=== PATIENT | male | born 1950 | race African-American/Black ===

== ENCOUNTER 2019-08-04 19:58 | Inpatient (IN) | payer OTHER ==
[2019-08-04 22:07] VITALS: BMI 24.0
[2019-08-04] MEDS ORDERED: ACETAMINOPHEN 325 MG TABLET (FP) PO PRN ×2 (22:21)
[2019-08-04] MEDS ORDERED: ONDANSETRON *ODT* 4 MG TABLET SL PRN (22:21)
[2019-08-04] MEDS ORDERED: MAGNESIUM HYDROX 2400MG/30ML ORAL SUSPENSION 30 ML CUP PO PRN (22:21)
[2019-08-04] MEDS ORDERED: IBUPROFEN 400 MG TABLET (FP) PO PRN (22:21)
[2019-08-04] MEDS ORDERED: MENTHOL/PHENOL 1 EACH UD MM PRN (22:21)
[2019-08-04] MEDS ORDERED: DICYCLOMINE HCL 10 MG CAPSULE PO PRN (22:21)
[2019-08-04] MEDS ORDERED: BISMUTH SUBSALICYLATE 524 MG/30 ML UD PO PRN (22:21)
[2019-08-04] MEDS ORDERED: P-EPHED 60MG/TRIPROLIDI 2.5MG TABLET PO PRN (22:21)
[2019-08-04] MEDS ORDERED: MAGNESIUM CITRATE 300 ML BOTTLE PO PRN (22:21)
[2019-08-04] MEDS ORDERED: hydrOXYzine PAMOATE 25 MG CAPSULE (FP) PO PRN (22:21)
[2019-08-04] MEDS ORDERED: chlordiazePOXIDE HCL 10 MG CAPSULE PO PRN (22:21)
[2019-08-04] MEDS ORDERED: NICOTINE POLACRILEX 2 MG GUM BUC PRN (22:21)
[2019-08-04] MEDS ORDERED: METHADONE HCL 10 MG TABLET (FOR DETOX USE ONLY) PO ONE (22:21)
[2019-08-04] MEDS ORDERED: guaiFENesin 200 MG/10 ML 10 ML UNIT-DOSE CUPS PO PRN (22:21)
[2019-08-04] MEDS ORDERED: METHOCARBAMOL 500 MG TABLET PO PRN (22:21)
[2019-08-04] MEDS ORDERED: cloNIDine HCL 0.1 MG TABLET PO PRN (22:21)
[2019-08-04] MEDS ORDERED: NALOXONE HCL 0.4 MG/ML VIAL IM PRN (22:21)
[2019-08-04] MEDS ORDERED: MAG HYDROX/AL HYDROX/SIMETH 30 ML UNIT-DOSE CUP PO PRN (22:21)
--- NOTE | 2019-08-04 22:28 | HP ---
COWS - Scale Resting Pulse: 1= [place] 81-100 Sweatin= No chills or Flushing Restless Observation: 1= Difficult to Sit Still Pupil Size: 0= Normal to Room Light Bone or Joint Aches: 1= Mild Discomfort Runny Nose/ Eye Tearin= Nasal Congestion GI Upset > 30mins: 2= Nausea/Diarrhea Tremor Observation: 0= None Yawning Observation: 2= >3x During Session Anxiety or Irritability: 2=Irritable/Anxious Goose Flesh Skin: 0=Smooth Skin COWS Score: 10 CIWA Score Nausea/Vomitin-No Nausea/No Vomiting Muscle Tremors: None Anxiety: 4-Mod. Anxious/Guarded Agitation: 4-Moderately Restless Paroxysmal Sweats: No Perspiration Orientation: 1-Uncertain about Date Tacttile Disturbances: 0-None Auditory Disturbances: 0-None Visual Disturbances: 0-None Headache: 0-None Present CIWA-Ar Total Score: 9 - Admission Criteria [facility]ASAS Guidelines: Admission for Medically Managed Detox: Requires at least one of the followin. CIWA greater than 12 2. Seizures within the past 24 hours 3. Delirium tremens within the past 24 hours 4. Hallucinations within the past 24 hours 5. Acute intervention needed for co occurring medical disorder 6. Acute intervention needed for co occurring psychiatric disorder 7. Severe withdrawal that cannot be handled at a lower level of care (continued vomiting, continued diarrhea, abnormal vital signs) requiring intravenous medication and/or fluids 8. Admission [facility] Chief Complaint: c/o withdrawal sx's Allergies/Adverse Reactions: Allergies Allergy/AdvReac Type Severity Reaction Status Date / Time No Known Allergies Allergy Verified 08/04/19 22:00 History of Present Illness: 68 y.o. male with alcoholism and heroin addiction here for detox. client was referred by [facility] after presenting there for help. he presents with c /o worsening withdrawal sx's. + cows/+ ciwa. he reports daily use of heroin and alcohol. + [employer], hx/o ivdu. last use of both substances this morning due to withdrawal sx's. denies any significant period of clean time in the past year. hx/o blackouts most recent 11/2018, drug overdose last episode 6 months. intereested in rehab after detox. lives alone, retired, denies legals Exam Limitations: Other (forgetful) - Ebola screening Have you traveled outside of the country in the last 21 days: No (N) Have you had contact with anyone from an Ebola affected area: No Do you have a fever: No - Review of Systems Constitutional: Chills, Night Sweats, Changes in sleep EENT: reports: Dental Problems (dentures and glasses) Respiratory: reports: Shortness of Breath Cardiac: reports: No Symptoms Reported, Edema (ble) GI: reports: Diarrhea, Nausea, Poor Fluid Intake, Abdominal cramping : reports: No Symptoms Reported Musculoskeletal: reports: Back Pain (chronic), Joint Pain Integumentary: reports: No Symptoms Reported Neuro: reports: Numbness (neuropathy), Seizure Endocrine: reports: Other (hx/o dm) Hematology: reports: No Symptoms Reported Psychiatric: reports: Anxious, Depressed (denies si) Other Systems: Reviewed and Negative Patient History - Patient Medical History Hx Anemia: No Hx Asthma: No Hx Chronic Obstructive Pulmonary Disease (COPD): No Hx Cancer: No Hx Cardiac Disorders: No Hx Congestive Heart Failure: No Hx Hypertension: Yes Hx Hypercholesterolemia: Yes Hx Pacemaker: No HX Cerebrovascular Accident: No Hx Seizures: No Hx Dementia: No Hx Diabetes: Yes Hx Gastrointestinal Disorders: No Hx Liver Disease: Yes (HCV TREATED) Hx Genitourinary Disorders: No Hx Sexually Transmitted Disorders: No Hx Renal Disease (ESRD): No Hx Thyroid Disease: No Hx Human Immunodeficiency Virus (HIV): No Hx Hepatitis C: No Hx Depression: No Hx Suicide Attempt: No Hx Bipolar Disorder: No Hx Schizophrenia: No - Patient Surgical History Past Surgical History: No - PPD History Previous Implant?: Yes Documented Results: Positive w/o proof Implanted On Prior [facility] Admission?: No PPD to be Administered?: No - Smoking Cessation Smoking history: Current every day smoker Have you smoked in the past 12 months: Yes Aproximately how many cigarettes per day: 15 Cigars Per Day: 0 Hx Chewing Tobacco Use: No Initiated information on smoking cessation: Yes 'Breaking Loose' booklet given: 08/04/19 - Substance & Tx. History Hx Alcohol Use: Yes Hx Substance Use: Yes Substance Use Type: Alcohol, Heroin Hx [place] Use [place]) - Substances abused Alcohol Substance route: Oral Frequency: Daily Amount used: 2/6 packs Age of first use: 19 Date of last use: 08/04/19 Heroin Substance route: Inhalation Frequency: Daily Amount used: 5 bags Age of first use: 19 Date of last use: 08/03/19 Admission Physical Exam [facility] - Vital Signs Vital Signs: Vital Signs - 24 hr 08/04/19 21:49 Temperature 97.9 F Pulse Rate 91 H Respiratory 17 Rate Blood Pressure 102/52 L - Physical General Appearance: Yes: Moderate Distress, Tremorous, Sweating (moist skin), Anxious HEENTM: Yes: EOMI, Normocephalic, Normal Voice, SAM, Pharynx Normal, Other ( upper dentures) Respiratory: Yes: Chest Non-Tender, Lungs Clear, Normal Breath Sounds, No Respiratory Distress, No Accessory Muscle Use Neck: Yes: No masses,lesions,Nodules, Supple, Trachea in good position Breast: Yes: Breast Exam Deferred Cardiology: Yes: Regular Rhythm, Regular Rate, S1, S2 Abdominal: Yes: Non Tender, Soft, Increased Bowel Sounds Genitourinary: Yes: Within Normal Limits (no c/o) Back: Yes: Normal Inspection Musculoskeletal: Yes: full range of Motion, Gait Steady Neurological: Yes: Alert, Motor Strength 5/5, Depressed Affect, Other (forgetful ) Integumentary: Yes: Cold, Clammy Lymphatic: Yes: Within Normal Limits - Diagnostic (1) Alcohol dependence with uncomplicated withdrawal Current Visit: Yes Status: Acute (2) Opioid dependence with withdrawal Current Visit: Yes Status: Acute (3) HTN (hypertension) Current Visit: Yes Status: Chronic Qualifiers: Hypertension type: essential hypertension Qualified Code(s): I10 - Essential (primary) hypertension (4) HLD (hyperlipidemia) Current Visit: Yes Status: Chronic Qualifiers: Hyperlipidemia type: unspecified Qualified Code(s): E78.5 - Hyperlipidemia , unspecified (5) Diabetes Current Visit: Yes Status: Chronic Qualifiers: Diabetes mellitus type: type 2 (6) History of hepatitis C Current Visit: Yes Status: Chronic (7) History of positive PPD Current Visit: Yes Status: Chronic Cleared for Admission [facility] - Detox or Rehab [facility] Level of Care: Medically Managed Detox Regimen/Protocol: Methadone/Librium Claeared for Rehab Admission: No Inpatient Rehab Admission - Rehab Decision to Admit Inpatient rehab admission?: No
[2019-08-04] MEDS: chlordiazePOXIDE HCL 25 MG CAPSULE PO SCH (23:55)
[2019-08-05] MEDS: chlordiazePOXIDE HCL 25 MG CAPSULE PO SCH ×3 (05:29→22:39)
[2019-08-05] MEDS: INSULIN (LEVEMIR) 100 UNITS/ML UNITS SQ SCH (07:31)
[2019-08-05] MEDS: metFORMIN HCL 500 MG TABLET (FP) PO SCH ×2 (07:31→16:55)
[2019-08-05] MEDS: LIRAGLUTIDE 0.6 MG/0.1 ML PEN.INJCTR SQ SCH (08:06)
[2019-08-05] MEDS ORDERED: METHADONE HCL 10 MG TABLET (FOR DETOX USE ONLY) ONE (09:40)
[2019-08-05] MEDS ORDERED: METHADONE HCL 5 MG TABLET (FOR DETOX USE ONLY) ONE (09:42)
[2019-08-05] MEDS ORDERED: METHADONE (DETOX) 20 MG, METHADONE (DETOX) 5 MG PO ONE (10:00)
[2019-08-05] MEDS: PRENATAL VITAMINS W/ FOLIC ACID TABLET (FP) PO SCH (10:28)
[2019-08-05] MEDS: ASPIRIN COATED 81 MG TABLET.EC PO SCH (10:28)
[2019-08-05] MEDS: NICOTINE 21 MG/24 HOURS TOPICAL PATCH TD SCH (10:28)
--- NOTE | 2019-08-05 10:52 | PN ---
S CIWA - CIWA Score Nausea/Vomitin-No Nausea/No Vomiting Muscle Tremors: None Anxiety: 3 Agitation: 2 Paroxysmal Sweats: 3 Orientation: 0-Oriented Tacttile Disturbances: 0-None Auditory Disturbances: 0-None Visual Disturbances: 0-None Headache: 0-None Present CIWA-Ar Total Score: 8 S COWS - Scale Resting Pulse: 1= [place] 81-100 Sweatin= Beads of Sweat on Face Restless Observation: 1= Difficult to Sit Still Pupil Size: 0= Normal to Room Light Bone or Joint Aches: 1= Mild Discomfort Runny Nose/ Eye Tearin= None GI Upset > 30mins: 0= None Tremor Observation of Outstretched Hands: 0= None Yawning Observation: 1= 1-2x During Session Anxiety or Irritability: 2=Irritable/Anxious Goose Flesh Skin: 0=Smooth Skin COWS Score: 9 S Progress Note (SOAP) Subjective: c/o anxiety, muscle aches, irritability, and sweats. Objective: 08/05/19 10:53 Vital Signs 08/05/19 08/05/19 08/05/19 03:48 06:00 09:35 Temperature 97.9 F 97.9 F Pulse Rate 96 H 76 Respiratory 16 18 18 Rate Blood Pressure 134/74 136/75 Labs noted. Assessment: 08/05/19 10:53 AOX3, in no acute distress. Full ROM, ambulating in the unit. Withdrawal symptoms. Plan: continue detox.
[2019-08-05 11:17] LABS: PH,URINE 5.5 (5.0-8.0); URINE APPEARANCE CLEAR; URINE BILIRUBIN NEGATIVE (NEGATIVE); URINE COLOR YELLOW; URINE GLUCOSE (UA) 3+ (NEGATIVE); URINE KETONE NEGATIVE (NEGATIVE); URINE LEUK ESTERASE NEGATIVE (NEGATIVE); URINE NITRITE NEGATIVE (NEGATIVE); URINE PROTEIN NEGATIVE (NEGATIVE)
[2019-08-05 11:22] LABS: HEMATOCRIT 38.9 % (35.4-49); HEMOGLOBIN 12.7 GM/dL (11.7-16.9); MCH 26.4 pg (25.7-33.7); MCHC 32.6 g/dl (32.0-35.9); MEAN CELL VOLUME 80.9 fl (80-96); MEAN PLT VOLUME 8.8 fl (7.5-11.1); PLATELET COUNT 193 K/MM3 (134-434); RBC 4.81 M/mm3 (4.00-5.60); RDW 15.2 % (11.9-15.9); WHITE BLOOD COUNT 5.8 K/mm3 (4.0-10.0)
[2019-08-05 11:26] LABS: ALBUMIN 4.2 g/dl (3.4-5.0); BILIRUBIN,TOTAL 0.5 mg/dL (0.2-1); BLOOD UREA NITROGEN 18.5 mg/dL (7-18); CALCIUM 9.6 mg/dL (8.5-10.1); TOT PROT 7.1 g/dl (6.4-8.2)
--- NOTE | 2019-08-05 19:24 | CONSULT ---
[facility] Psychiatric Consult - Data Date of interview: 08/05/19 Admission source: [facility] Identifying data: First admission to [facility] for this 68 y/o AA male, a [employer] , self-referred for detoxification (heroin, alcohol). Seen on . Patient is single, father of two, domiciled, unemployed and supported on SSI benefits. Substance Abuse History: Discussed with patient. Details in current [facility] report as follows : Smoking history: Current every day smoker. Have you smoked in the past 12 months: Yes. Aproximately how many cigarettes per day: 15. Cigars Per Day: 0. Hx Chewing Tobacco Use: No. Initiated information on smoking cessation : Yes. 'Breaking Loose' booklet given: 08/04/19. - Substance & Tx. History. Hx Alcohol Use: Yes. Hx Substance Use: Yes. Substance Use Type: Alcohol, Heroin. Hx Substance Use Treatment: [place] ([place] - Substances abused. Alcohol. Substance route: Oral. Frequency: Daily. Amount used: 2/6 packs. Age of first use: 19. Date of last use: 08/04/19. Heroin. Substance route : Inhalation. Frequency: Daily. Amount used: 5 bags. Age of first use: 19. Date of last use: 08/03/19 Medical History: Hepatitis C, diabetes mellitus and hypertension. Psychiatric History: No reported history of psychiatric hospitalizations. Patient denies having a mental illness. " Insomnia is my issue." Mr Lenz is prescribed trazodone 100 mg/hs at the [facility] in [facility]. Patient denies history of suicide attempts. Physical/Sexual Abuse/Trauma History: No history. Additional Comment: No toxicology for review. Mental Status Exam - Mental Status Exam Alert and Oriented to: Time, Place, Person Cognitive Function: Good Patient Appearance: Well Groomed Mood: Hopeful, Euthymic Affect: Appropriate, Normal Range Patient Behavior: Appropriate, Cooperative Speech Pattern: Clear, Appropriate Voice Loudness: Normal Thought Process: Intact, Goal Oriented Thought Disorder: Not Present Hallucinations: Denies Suicidal Ideation: Denies Homicidal Ideation: Denies Insight/Judgement: Fair Sleep: Poorly, Difficulty falling asleep Appetite: Good Muscle strength/Tone: Normal Gait/Station: Normal Psychiatric Findings - Problem List ([place] 1, 2,3) (1) Alcohol dependence with uncomplicated withdrawal Current Visit: Yes Status: Acute (2) Opioid dependence with withdrawal Current Visit: Yes Status: Acute (3) Insomnia Current Visit: Yes Status: Chronic - Initial Treatment Plan Initial Treatment Plan: Psychoeducation. Detoxification. Sleep hygiene. Trazodone 50 mg po hs. Ordered. Patient is made aware of the risk of priapism. Gave verbal consent to MD. Christine.
[2019-08-05] MEDS: traZODone HCL 50 MG TABLET (FP) PO SCH (22:38)
[2019-08-05] MEDS: THIAMINE HCL 100 MG TABLET (FP) PO SCH (22:38)
[2019-08-06] MEDS: chlordiazePOXIDE 5 MG CAPSULE PO SCH ×3 (05:44→21:21)
[2019-08-06] MEDS: metFORMIN HCL 500 MG TABLET (FP) PO SCH ×2 (06:35→16:48)
[2019-08-06] MEDS: INSULIN (LEVEMIR) 100 UNITS/ML UNITS SQ SCH (07:06)
[2019-08-06] MEDS: LIRAGLUTIDE 0.6 MG/0.1 ML PEN.INJCTR SQ SCH (07:57)
[2019-08-06] MEDS ORDERED: METHADONE HCL 10 MG TABLET (FOR DETOX USE ONLY) PO ONE (10:00)
[2019-08-06] MEDS: NICOTINE 21 MG/24 HOURS TOPICAL PATCH TD SCH (10:07)
[2019-08-06] MEDS: ASPIRIN COATED 81 MG TABLET.EC PO SCH (10:08)
[2019-08-06] MEDS: PRENATAL VITAMINS W/ FOLIC ACID TABLET (FP) PO SCH (10:08)
--- NOTE | 2019-08-06 14:22 | PN ---
[facility] CIWA - CIWA Score Nausea/Vomitin-No Nausea/No Vomiting Muscle Tremors: 3 Anxiety: 2 Agitation: 2 Paroxysmal Sweats: 2 Orientation: 0-Oriented Tacttile Disturbances: 0-None Auditory Disturbances: 0-None Visual Disturbances: 0-None Headache: 0-None Present CIWA-Ar Total Score: 9 [facility] COWS - Scale Resting Pulse: 0= [place] 80 or Below Sweatin= Chills/Flushing Restless Observation: 1= Difficult to Sit Still Pupil Size: 0= Normal to Room Light Bone or Joint Aches: 1= Mild Discomfort Runny Nose/ Eye Tearin= Runny Nose/Eyes GI Upset > 30mins: 2= Nausea/Diarrhea Tremor Observation of Outstretched Hands: 2= Slight Tremor Visible Yawning Observation: 0= None Anxiety or Irritability: 1=Feels Anxious/Irritable Goose Flesh Skin: 0=Smooth Skin COWS Score: 10 [facility] Progress Note (SOAP) Subjective: Interrupted sleep, medication otherwise working well Objective: 08/06/19 14:15 Last Vital Signs Temp Pulse Resp BP Pulse Ox 98.2 F 75 18 145/68 08/06/19 13:16 08/06/19 13:16 08/06/19 13:16 08/06/19 13:16 Elevated b/p 145/68 (denies htn, on Clonidine prn) Laboratory Tests 08/04/19 08/05/19 08/05/19 23:57 05:27 08:00 WBC 5.8 RBC 4.81 Hgb 12.7 Hct 38.9 MCV 80.9 MCH 26.4 MCHC 32.6 RDW 15.2 Plt Count 193 MPV 8.8 Sodium Potassium Chloride Carbon Dioxide Anion Gap BUN Creatinine Est GFR (CKD-EPI)AfAm Est GFR (CKD-EPI)NonAf POC Glucometer 187 119 Random Glucose Calcium Total Bilirubin AST ALT Alkaline Phosphatase Total Protein Albumin Urine Color Urine Appearance Urine pH Ur Specific Campbell Urine Protein Urine Glucose (UA) Urine Ketones Urine Blood Urine Nitrite Urine Bilirubin Urine Urobilinogen Ur Leukocyte Esterase RPR Titer 08/05/19 08/05/19 08/05/19 08:00 08:00 08:45 WBC RBC Hgb Hct MCV MCH MCHC RDW Plt Count MPV Sodium 139 Potassium 4.0 Chloride 104 Carbon Dioxide 29 Anion Gap 6 L BUN 18.5 H Creatinine 1.0 Est GFR (CKD-EPI)AfAm 90.50 Est GFR (CKD-EPI)NonAf 78.08 POC Glucometer Random Glucose 142 H Calcium 9.6 Total Bilirubin 0.5 AST 42 H ALT 49 Alkaline Phosphatase 62 Total Protein 7.1 Albumin 4.2 Urine Color Yellow Urine Appearance Clear Urine pH 5.5 Ur Specific Campbell 1.032 Urine Protein Negative Urine Glucose (UA) 3+ H Urine Ketones Negative Urine Blood Negative Urine Nitrite Negative Urine Bilirubin Negative Urine Urobilinogen 1.0 Ur Leukocyte Esterase Negative RPR Titer Nonreactive 08/05/19 08/06/19 16:31 05:44 WBC RBC Hgb Hct MCV MCH MCHC RDW Plt Count MPV Sodium Potassium Chloride Carbon Dioxide Anion Gap BUN Creatinine Est GFR (CKD-EPI)AfAm Est GFR (CKD-EPI)NonAf POC Glucometer 130 105 Random Glucose Calcium Total Bilirubin AST ALT Alkaline Phosphatase Total Protein Albumin Urine Color Urine Appearance Urine pH Ur Specific Campbell Urine Protein Urine Glucose (UA) Urine Ketones Urine Blood Urine Nitrite Urine Bilirubin Urine Urobilinogen Ur Leukocyte Esterase RPR Titer Labs reviewed: elevated glucose level and glycosuria due to DM Assessment: 08/06/19 14:18 Withdrawal sxs Noted with elevated b/p and hyperglycemia and glycosuria secondary to DMT2 Plan: Continue detox Encouraged PO water intake Elevated b/p: has htn, start lisinopril 5mg PO daily, can continue clonidine prn if b/p > 140/90 Hyperglycemia and glycosuria secondary to DMT2: continue antidiabetic regimen
[2019-08-06] MEDS: traZODone HCL 50 MG TABLET (FP) PO SCH (22:21)
[2019-08-06] MEDS: THIAMINE HCL 100 MG TABLET (FP) PO SCH (22:21)
[2019-08-06] MEDS: MELATONIN 5 MG TABLETS PO PRN (22:23)
[2019-08-07] MEDS ORDERED: chlordiazePOXIDE HCL 10 MG CAPSULE PO PRN
[2019-08-07] MEDS: chlordiazePOXIDE HCL 10 MG CAPSULE PO SCH ×3 (05:28→21:23)
[2019-08-07] MEDS: metFORMIN HCL 500 MG TABLET (FP) PO SCH ×2 (06:27→17:23)
[2019-08-07] MEDS: INSULIN (LEVEMIR) 100 UNITS/ML UNITS SQ SCH (06:29)
[2019-08-07] MEDS: LIRAGLUTIDE 0.6 MG/0.1 ML PEN.INJCTR SQ SCH (06:39)
[2019-08-07] MEDS ORDERED: METHADONE HCL 10 MG TABLET (FOR DETOX USE ONLY) ONE (09:37)
[2019-08-07] MEDS ORDERED: METHADONE HCL 5 MG TABLET (FOR DETOX USE ONLY) ONE (09:37)
[2019-08-07] MEDS ORDERED: METHADONE (DETOX) 10 MG, METHADONE (DETOX) 5 MG PO ONE (10:00)
[2019-08-07] MEDS: LISINOPRIL 5 MG TABLET (FP) PO SCH (10:38)
[2019-08-07] MEDS: PRENATAL VITAMINS W/ FOLIC ACID TABLET (FP) PO SCH (10:38)
[2019-08-07] MEDS: ASPIRIN COATED 81 MG TABLET.EC PO SCH (10:38)
[2019-08-07] MEDS: NICOTINE 21 MG/24 HOURS TOPICAL PATCH TD SCH (10:39)
--- NOTE | 2019-08-07 11:35 | PN ---
[facility] COWS - Scale Resting Pulse: 1= [place] 81-100 Sweatin= No chills or Flushing Restless Observation: 1= Difficult to Sit Still Pupil Size: 1= Pupils >than Normal Bone or Joint Aches: 1= Mild Discomfort Runny Nose/ Eye Tearin= Nasal Congestion GI Upset > 30mins: 1= Stomach Cramp Tremor Observation of Outstretched Hands: 1= Tremor Vanduser, Not Seen Yawning Observation: 1= 1-2x During Session Anxiety or Irritability: 2=Irritable/Anxious Goose Flesh Skin: 0=Smooth Skin COWS Score: 10 [facility] Progress Note (SOAP) Subjective: alert,irritable,anxious,interrupted sleep,pain n the body and back Objective: 08/07/19 11:35 Vital Signs Temperature 99.0 F 08/07/19 10:53 Pulse Rate 88 08/07/19 10:53 Respiratory Rate 18 08/07/19 10:53 Blood Pressure 103/68 08/07/19 10:53 O2 Sat by Pulse Oximetry (%) 08/07/19 11:35 glucose 125 Assessment: 08/07/19 11:36 withdrawal symptom Plan: continue detox methadone regimen
[2019-08-07] MEDS: THIAMINE HCL 100 MG TABLET (FP) PO SCH (21:22)
[2019-08-07] MEDS: traZODone HCL 50 MG TABLET (FP) PO SCH (21:22)
[2019-08-07] MEDS: MELATONIN 5 MG TABLETS PO PRN (21:49)
[2019-08-08] MEDS ORDERED: chlordiazePOXIDE HCL 10 MG CAPSULE PO ONE (05:00)
[2019-08-08] MEDS: metFORMIN HCL 500 MG TABLET (FP) PO SCH ×2 (06:21→16:56)
[2019-08-08] MEDS: INSULIN (LEVEMIR) 100 UNITS/ML UNITS SQ SCH (07:35)
[2019-08-08] MEDS: LIRAGLUTIDE 0.6 MG/0.1 ML PEN.INJCTR SQ SCH (07:37)
[2019-08-08] MEDS ORDERED: METHADONE HCL 10 MG TABLET (FOR DETOX USE ONLY) PO ONE (10:00)
[2019-08-08] MEDS: ASPIRIN COATED 81 MG TABLET.EC PO SCH (10:30)
[2019-08-08] MEDS: PRENATAL VITAMINS W/ FOLIC ACID TABLET (FP) PO SCH (10:30)
[2019-08-08] MEDS: LISINOPRIL 5 MG TABLET (FP) PO SCH (10:31)
[2019-08-08] MEDS: NICOTINE 21 MG/24 HOURS TOPICAL PATCH TD SCH (10:32)
--- NOTE | 2019-08-08 15:53 | PN ---
[facility] CIWA - CIWA Score Nausea/Vomitin-No Nausea/No Vomiting Muscle Tremors: None Anxiety: 0-No Anxiety, at Ease Agitation: 1-Slight > Activity Paroxysmal Sweats: No Perspiration Orientation: 0-Oriented Tacttile Disturbances: 0-None Auditory Disturbances: 0-None Visual Disturbances: 0-None Headache: 0-None Present CIWA-Ar Total Score: 1 S COWS - Scale Resting Pulse: 0= [place] 80 or Below Sweatin= No chills or Flushing Restless Observation: 1= Difficult to Sit Still Pupil Size: 0= Normal to Room Light Bone or Joint Aches: 0= None Runny Nose/ Eye Tearin= None GI Upset > 30mins: 0= None Tremor Observation of Outstretched Hands: 0= None Yawning Observation: 1= 1-2x During Session Anxiety or Irritability: 0= None Goose Flesh Skin: 0=Smooth Skin COWS Score: 2 S Progress Note (SOAP) Subjective: Patient denies current Withdrawal / Detox symptoms and reports that he feels well overall at this time. Objective: PATIENT A & O X 3. IN NO ACUTE DISTRESS. 08/08/19 15:51 Vital Signs Temperature 98.8 F 08/08/19 13:34 Pulse Rate 80 08/08/19 13:34 Respiratory Rate 18 08/08/19 13:34 Blood Pressure 131/70 08/08/19 13:34 O2 Sat by Pulse Oximetry (%) Laboratory Tests 08/04/19 08/05/19 08/05/19 23:57 05:27 08:00 WBC 5.8 RBC 4.81 Hgb 12.7 Hct 38.9 MCV 80.9 MCH 26.4 MCHC 32.6 RDW 15.2 Plt Count 193 MPV 8.8 Sodium Potassium Chloride Carbon Dioxide Anion Gap BUN Creatinine Est GFR (CKD-EPI)AfAm Est GFR (CKD-EPI)NonAf POC Glucometer 187 119 Random Glucose Calcium Total Bilirubin AST ALT Alkaline Phosphatase Total Protein Albumin Urine Color Urine Appearance Urine pH Ur Specific [place] Urine Protein Urine Glucose (UA) Urine Ketones Urine Blood Urine Nitrite Urine Bilirubin Urine Urobilinogen Ur Leukocyte Esterase RPR Titer 08/05/19 08/05/19 08/05/19 08:00 08:00 08:45 WBC RBC Hgb Hct MCV MCH MCHC RDW Plt Count MPV Sodium 139 Potassium 4.0 Chloride 104 Carbon Dioxide 29 Anion Gap 6 L BUN 18.5 H Creatinine 1.0 Est GFR (CKD-EPI)AfAm 90.50 Est GFR (CKD-EPI)NonAf 78.08 POC Glucometer Random Glucose 142 H Calcium 9.6 Total Bilirubin 0.5 AST 42 H ALT 49 Alkaline Phosphatase 62 Total Protein 7.1 Albumin 4.2 Urine Color Yellow Urine Appearance Clear Urine pH 5.5 Ur Specific [place] 1.032 Urine Protein Negative Urine Glucose (UA) 3+ H Urine Ketones Negative Urine Blood Negative Urine Nitrite Negative Urine Bilirubin Negative Urine Urobilinogen 1.0 Ur Leukocyte Esterase Negative RPR Titer Nonreactive 08/05/19 08/06/19 08/07/19 16:31 05:44 05:27 WBC RBC Hgb Hct MCV MCH MCHC RDW Plt Count MPV Sodium Potassium Chloride Carbon Dioxide Anion Gap BUN Creatinine Est GFR (CKD-EPI)AfAm Est GFR (CKD-EPI)NonAf POC Glucometer 130 105 125 Random Glucose Calcium Total Bilirubin AST ALT Alkaline Phosphatase Total Protein Albumin Urine Color Urine Appearance Urine pH Ur Specific [place] Urine Protein Urine Glucose (UA) Urine Ketones Urine Blood Urine Nitrite Urine Bilirubin Urine Urobilinogen Ur Leukocyte Esterase RPR Titer 08/07/19 08/08/19 16:51 05:30 WBC RBC Hgb Hct MCV MCH MCHC RDW Plt Count MPV Sodium Potassium Chloride Carbon Dioxide Anion Gap BUN Creatinine Est GFR (CKD-EPI)AfAm Est GFR (CKD-EPI)NonAf POC Glucometer 154 129 Random Glucose Calcium Total Bilirubin AST ALT Alkaline Phosphatase Total Protein Albumin Urine Color Urine Appearance Urine pH Ur Specific [place] Urine Protein Urine Glucose (UA) Urine Ketones Urine Blood Urine Nitrite Urine Bilirubin Urine Urobilinogen Ur Leukocyte Esterase RPR Titer LABS NOTED. Assessment: 08/08/19 15:51 WITHDRAWAL SYMPTOMS. Plan: CONTINUE DETOX. INCREASE DAILY PO WATER INTAKE. PATIENT SCHEDULED FOR D/C FROM DETOX UNIT TOMORROW. CXR FOR HISTORY OF (POSITIVE PPD) ORDERED BUT NOT DONE NOT DONE WHILE PATIENT WAS ADMITTED FOR DETOX. PATIENT REPORTS THAT HE BELIEVES THAT HE HAD A CXR AT THE [facility] WITHIN THE LAST 1-2 YEARS. PATIENT ADVISED TO FOLLOW-UP WITH PILE OPERATOR (AT [facility]) WHEN POSSIBLE AFTER DISCHARGE FROM DETOX UNIT TO HAVE CXR DONE. PATIENT VERBALIZED UNDERSTANDING OF RECOMMENDATION.
[2019-08-08] MEDS: MELATONIN 5 MG TABLETS PO PRN (21:04)
[2019-08-08] MEDS: THIAMINE HCL 100 MG TABLET (FP) PO SCH (21:04)
[2019-08-08] MEDS: traZODone HCL 50 MG TABLET (FP) PO SCH (21:04)
[2019-08-09] MEDS ORDERED: METHADONE HCL 5 MG TABLET (FOR DETOX USE ONLY) PO ONE (06:00)
[2019-08-09] MEDS: metFORMIN HCL 500 MG TABLET (FP) PO SCH (07:35)
[2019-08-09 08:49] VITALS: BP 136/62; PULSE 71; TEMP 98
--- NOTE | 2019-08-09 09:23 | DS ---
[facility] Detox Discharge Summary Admission Date: 08/04/19 Discharge Date: 08/09/19 - History Present History: Alcohol Dependence, Opioid Dependence - Physical Exam Results Vital Signs: Vital Signs Temperature 98.0 F 08/09/19 08:49 Pulse Rate 71 08/09/19 08:49 Respiratory Rate 18 08/09/19 08:49 Blood Pressure 136/62 08/09/19 08:49 O2 Sat by Pulse Oximetry (%) Pertinent Admission Physical Exam Findings: pt was advised to stay until 2pm however, pt refused to stay for chest x- ray...pt has copy of lab results and encouraged to see his PCP for a chest x- ray. pt agreed. - Treatment Hospital Course: Detox Protocol Followed, Detoxed Safely, Responded well, Discharged Condition Good, Rehab Referral Accepted Patient has Accepted a Rehab Referral to: pt declined rehab; referral provided - Medication Discharge Medications: Ambulatory Orders Aspirin [Ecotrin] 81 mg PO DAILY 08/04/19 Insulin Glargine,Hum.rec.anlog [Lantus] 24 unit SQ DAILY 08/04/19 Liraglutide [Victoza -] 1.8 mg SQ DAILY@0700 08/04/19 Metformin HCl [Glucophage] 1,000 mg PO BID 08/04/19 - Diagnosis (1) Alcohol dependence with uncomplicated withdrawal Current Visit: Yes Status: Chronic (2) Opioid dependence with withdrawal Current Visit: Yes Status: Chronic (3) Diabetes Current Visit: Yes Status: Chronic Qualifiers: Diabetes mellitus type: type 2 (4) HLD (hyperlipidemia) Current Visit: Yes Status: Chronic Qualifiers: Hyperlipidemia type: unspecified Qualified Code(s): E78.5 - Hyperlipidemia , unspecified (5) HTN (hypertension) Current Visit: Yes Status: Chronic Qualifiers: Hypertension type: essential hypertension Qualified Code(s): I10 - Essential (primary) hypertension (6) History of hepatitis C Current Visit: Yes Status: Chronic (7) History of positive PPD Current Visit: Yes Status: Chronic (8) Insomnia Current Visit: Yes Status: Chronic - AMA Did Patient Leave Against Medical Advice: No
== END 2019-08-09 09:05 | disposition home or self-care (01) | DRG 897 ==
LOC: YASAS 19:58 → Y6N 23:23
PROVIDERS: ADMIT Surgery; ATTEND Surgery
PROC: HZ2ZZZZ Detoxification Services for Substance Abuse Treatment (ICD-10-PCS; principal; 2019-08-04)
DX: F11.23 Opioid dependence with withdrawal (principal); F10.230 Alcohol dependence with withdrawal, uncomplicated; F17.210 Nicotine dependence, cigarettes, uncomplicated; I10 Essential (primary) hypertension; E11.65 Type 2 diabetes mellitus with hyperglycemia; E78.5 Hyperlipidemia, unspecified; R76.11 Nonspecific reaction to tuberculin skin test without active tuberculosis; G47.00 Insomnia, unspecified; R81 Glycosuria; Z86.19 Personal history of other infectious and parasitic diseases
CPT/HCPCS: 36415; 80053; 81003; 82962; 85027; 86593

== ENCOUNTER 2019-09-25 08:16 | Inpatient (IN) | payer OTHER ==
[2019-09-25 09:17] VITALS: BMI 24.4
--- NOTE | 2019-09-25 09:43 | HP ---
COWS - Scale Resting Pulse: 1= [place] 81-100 Sweatin= Chills/Flushing Restless Observation: 1= Difficult to Sit Still Pupil Size: 1= Pupils >than Normal Bone or Joint Aches: 2= Severe Diffuse Aches Runny Nose/ Eye Tearin= Nasal Congestion GI Upset > 30mins: 3= Vomiting/Diarrhea Tremor Observation: 1= Tremor [place], Not Seen Yawning Observation: 1= 1-2x During Session Anxiety or Irritability: 1=Feels Anxious/Irritable Goose Flesh Skin: 0=Smooth Skin COWS Score: 13 CIWA Score Nausea/Vomitin Muscle Tremors: 4-Moderate,w/Arms Extend Anxiety: 4-Mod. Anxious/Guarded Agitation: 4-Moderately Restless Paroxysmal Sweats: 4-Forehead w/Sweat Beads Orientation: 0-Oriented Tacttile Disturbances: 1-Very Mild Itch/Numbness Auditory Disturbances: 0-None Visual Disturbances: 0-None Headache: 1-Very Mild CIWA-Ar Total Score: 21 - Admission Criteria OASAS Guidelines: Admission for Medically Managed Detox: Requires at least one of the followin. CIWA greater than 12 2. Seizures within the past 24 hours 3. Delirium tremens within the past 24 hours 4. Hallucinations within the past 24 hours 5. Acute intervention needed for co occurring medical disorder 6. Acute intervention needed for co occurring psychiatric disorder 7. Severe withdrawal that cannot be handled at a lower level of care (continued vomiting, continued diarrhea, abnormal vital signs) requiring intravenous medication and/or fluids 8. Admitting History and Physical - Admission Chief Complaint: " I want to go to detox again and this time follow up with rehab and also outpatient treatment program." History of Present Illness: 68 year old black male with opioid dependence with withdrawals and alcohol dependence with withdrawals. He is using heroin 4-5 bags daily, last used yesterday morning. He never overdosed He is using 2 6 pack every day, last drank last night. He has had blackouts, last one 1 year ago. PMH: HTN, HLD, Diabetes, Insomnia Psurg: None Psych : None Patient was last here in detox in 07/2019 and completed it, but relapsed thereafter. He now wishes to complete detox and follow up with rehab and then an outpatient treatment program. Patient has 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s. Patient is domicile and has support systems in place. He has a friend that helps him. History Source: Patient Limitations to Obtaining History: No Limitations - Past Medical History Cardiovascular: Yes: HTN, Hyperlipdemia Psych: Yes: Other (Insomnia) Endocrine: Yes: Diabetes Mellitus - Past Surgical History Past Surgical History: Yes: None - Advance Directives Advance Directives: No: Living Will, Health Care Proxy, DNR - Smoking History Smoking history: Current every day smoker Have you smoked in the past 12 months: Yes Aproximately how many cigarettes per day: 15 - Alcohol/Substance Use Hx Alcohol Use: Yes (2 packs of 6 beers daily) Number of Drinks Daily: 12 History of Substance Use: reports: Heroin Date of Last Use: 09/24/19 - Social History Usual Living Arrangement: Yes: Alone Do you think of yourself as: Straight/Heterosexual ADL: Independent 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 Loss EENT: reports: No Symptoms Reported Respiratory: reports: No Symptoms reported Cardiac: reports: No Symptoms Reported GI: reports: Diarrhea, Nausea : reports: No Symptoms Reported Musculoskeletal: reports: No Symptoms Reported Integumentary: reports: No Symptoms Reported Neuro: reports: No Symptoms reported Endocrine: reports: No Symptoms Reported Hematology: reports: No Symptoms Reported Psychiatric: reports: Judgement Intact, Orientated x3, Agitated, Anxious Other Systems: Reviewed and Negative Patient History - Patient Medical History Hx Anemia: No Hx Asthma: No Hx Chronic Obstructive Pulmonary Disease (COPD): No Hx Cancer: No Hx Cardiac Disorders: No Hx Congestive Heart Failure: No Hx Hypertension: Yes Hx Hypercholesterolemia: Yes Hx Pacemaker: No HX Cerebrovascular Accident: No Hx Seizures: No Hx Dementia: No Hx Diabetes: Yes Hx Gastrointestinal Disorders: No Hx Liver Disease: Yes (HCV TREATED) Hx Genitourinary Disorders: No Hx Sexually Transmitted Disorders: No Hx Renal Disease (ESRD): No Hx Thyroid Disease: No Hx Human Immunodeficiency Virus (HIV): No Hx Hepatitis C: No Hx Depression: No Hx Suicide Attempt: No Hx Bipolar Disorder: No Hx Schizophrenia: No - Patient Surgical History Past Surgical History: No Hx Neurologic Surgery: No Hx Cataract Extraction: No Hx Cardiac Surgery: No Hx Lung Surgery: No Hx Breast Surgery: No Hx Breast Biopsy: No Hx Abdominal Surgery: No Hx Appendectomy: No Hx Cholecystectomy: No Hx Genitourinary Surgery: No Hx Section: No Hx Orthopedic Surgery: No Anesthesia Reaction: No - PPD History Previous Implant?: No Documented Results: Positive w/proof Implanted On Prior R Admission?: No PPD to be Administered?: No - Smoking Cessation Smoking history: Current every day smoker Have you smoked in the past 12 months: Yes Aproximately how many cigarettes per day: 15 Cigars Per Day: 0 Hx Chewing Tobacco Use: No Initiated information on smoking cessation: Yes 'Breaking Loose' booklet given: 09/25/19 - Substances abused Alcohol Substance route: Oral Frequency: Daily Amount used: 2/6 packs Age of first use: 19 Date of last use: 09/25/19 Heroin Substance route: Inhalation Frequency: Daily Amount used: 5 bags Age of first use: 19 Date of last use: 09/24/19 Admission Physical Exam BHS - Vital Signs Vital Signs: Vital Signs - 24 hr 09/25/19 09:05 Temperature 97.8 F Pulse Rate 90 Respiratory 20 Rate Blood Pressure 102/52 L - Physical General Appearance: Yes: Mild Distress HEENTM: Yes: EOMI, Hearing grossly Normal, Normal ENT Inspection, Normocephalic , Normal Voice, SAM Respiratory: Yes: Chest Non-Tender, Lungs Clear, Normal Breath Sounds, No Respiratory Distress, No Accessory Muscle Use Neck: Yes: No masses,lesions,Nodules, Trachea in good position, Thyroid enlarged Breast: Yes: Within Normal Limits Cardiology: Yes: Regular Rhythm, S1, S2, Tachycardia Abdominal: Yes: Normal Bowel Sounds, Non Tender, Flat, Soft Genitourinary: Yes: Within Normal Limits Back: Yes: Normal Inspection Musculoskeletal: Yes: full range of Motion, Gait Steady, Pelvis Stable Extremities: Yes: Normal Capillary Refill Breathalyzer - Breathalyzer Breathalyzer: 0 Urine Drug Screen - Test Device Lot number: [id number] Expiration date: 06/14/21 - Control Is test valid?: Yes - Results Drug screen NEGATIVE: No Urine drug screen results: MOP-Opiates Inpatient Rehab Admission - Rehab Decision to Admit Inpatient rehab admission?: No
[2019-09-25] MEDS ORDERED: BISMUTH SUBSALICYLATE 524 MG/30 ML UD PO PRN (09:49)
[2019-09-25] MEDS ORDERED: METHOCARBAMOL 500 MG TABLET PO PRN (09:49)
[2019-09-25] MEDS ORDERED: cloNIDine HCL 0.1 MG TABLET PO PRN (09:49)
[2019-09-25] MEDS ORDERED: hydrOXYzine PAMOATE 25 MG CAPSULE (FP) PO PRN (09:49)
[2019-09-25] MEDS ORDERED: MELATONIN 5 MG TABLETS PO PRN (09:49)
[2019-09-25] MEDS ORDERED: MENTHOL/PHENOL 1 EACH UD MM PRN (09:49)
[2019-09-25] MEDS ORDERED: chlordiazePOXIDE HCL 25 MG CAPSULE PO PRN (09:49)
[2019-09-25] MEDS ORDERED: ACETAMINOPHEN 325 MG TABLET (FP) PO PRN ×2 (09:49)
[2019-09-25] MEDS ORDERED: MAG HYDROX/AL HYDROX/SIMETH 30 ML UNIT-DOSE CUP PO PRN (09:49)
[2019-09-25] MEDS ORDERED: MAGNESIUM HYDROX 2400MG/30ML ORAL SUSPENSION 30 ML CUP PO PRN (09:49)
[2019-09-25] MEDS ORDERED: MAGNESIUM CITRATE 300 ML BOTTLE PO PRN (09:49)
[2019-09-25] MEDS ORDERED: METHADONE HCL 10 MG TABLET (FOR DETOX USE ONLY) PO ONE (11:30)
[2019-09-25] MEDS: chlordiazePOXIDE HCL 25 MG CAPSULE PO SCH ×3 (11:45→22:22)
[2019-09-25] MEDS: ASPIRIN COATED 81 MG TABLET.EC PO SCH (11:46)
[2019-09-25] MEDS: INSULIN (LEVEMIR) 100 UNITS/ML UNITS SQ SCH (11:46)
[2019-09-25] MEDS: PRENATAL VITAMINS W/ FOLIC ACID TABLET (FP) PO SCH (12:00)
[2019-09-25] MEDS: NICOTINE 14 MG/24 HOURS TOPICAL PATCH TD SCH (12:00)
[2019-09-25 12:18] LABS: ALBUMIN 3.8 g/dl (3.4-5.0); BILIRUBIN,TOTAL 0.8 mg/dL (0.2-1); BLOOD UREA NITROGEN 13.3 mg/dL (7-18); CALCIUM 8.9 mg/dL (8.5-10.1); POTASSIUM 3.9 mmol/L (3.5-5.1)
[2019-09-25 12:25] LABS: HEMOGLOBIN 13.3 GM/dL (11.7-16.9); MCH 26.2 pg (25.7-33.7); MCHC 32.3 g/dl (32.0-35.9); MEAN CELL VOLUME 80.9 fl (80-96); MEAN PLT VOLUME 8.6 fl (7.5-11.1); PLATELET COUNT 183 K/MM3 (134-434); RBC 5.07 M/mm3 (4.00-5.60); WHITE BLOOD COUNT 5.8 K/mm3 (4.0-10.0)
[2019-09-25] MEDS: metFORMIN HCL 500 MG TABLET (FP) PO SCH ×2 (14:53→17:12)
[2019-09-25] MEDS: IBUPROFEN 400 MG TABLET (FP) PO PRN (18:51)
[2019-09-25] MEDS: LOPERAMIDE HCL 2 MG CAPSULE PO PRN (20:03)
[2019-09-25] MEDS: THIAMINE HCL 100 MG TABLET (FP) PO SCH (22:22)
[2019-09-25] MEDS: SUVOREXANT 10 MG TABLET PO PRN (23:45)
[2019-09-26] MEDS: chlordiazePOXIDE HCL 25 MG CAPSULE PO SCH ×4 (05:13→22:00)
[2019-09-26] MEDS: metFORMIN HCL 500 MG TABLET (FP) PO SCH ×2 (06:03→17:18)
[2019-09-26] MEDS ORDERED: METHADONE HCL 5 MG TABLET (FOR DETOX USE ONLY) ONE (09:00)
[2019-09-26] MEDS ORDERED: METHADONE HCL 10 MG TABLET (FOR DETOX USE ONLY) ONE (09:00)
[2019-09-26] MEDS: LOPERAMIDE HCL 2 MG CAPSULE PO PRN (09:41)
[2019-09-26] MEDS: INSULIN (LEVEMIR) 100 UNITS/ML UNITS SQ SCH (09:41)
[2019-09-26] MEDS: NICOTINE 14 MG/24 HOURS TOPICAL PATCH TD SCH (09:42)
[2019-09-26] MEDS: PRENATAL VITAMINS W/ FOLIC ACID TABLET (FP) PO SCH (09:42)
[2019-09-26] MEDS: ASPIRIN COATED 81 MG TABLET.EC PO SCH (09:42)
[2019-09-26] MEDS: LIRAGLUTIDE 0.6 MG/0.1 ML PEN.INJCTR SQ SCH (09:44)
[2019-09-26] MEDS ORDERED: METHADONE (DETOX) 20 MG, METHADONE (DETOX) 5 MG PO ONE (10:00)
[2019-09-26] MEDS: IBUPROFEN 400 MG TABLET (FP) PO PRN (10:10)
--- NOTE | 2019-09-26 11:54 | PN ---
S CIWA - CIWA Score Nausea/Vomitin-Mild Nausea/No Vomiting Muscle Tremors: 4-Moderate,w/Arms Extend Anxiety: 3 Agitation: 3 Paroxysmal Sweats: 2 Orientation: 0-Oriented Tacttile Disturbances: 1-Very Mild Itch/Numbness Auditory Disturbances: 1-Very Mild Visual Disturbances: 0-None Headache: 1-Very Mild CIWA-Ar Total Score: 16 BHS COWS - Scale Resting Pulse: 0= [place] 80 or Below Sweatin= Chills/Flushing Restless Observation: 0= Sits Still Pupil Size: 1= Pupils >than Normal Bone or Joint Aches: 1= Mild Discomfort Runny Nose/ Eye Tearin= Nasal Congestion GI Upset > 30mins: 2= Nausea/Diarrhea Tremor Observation of Outstretched Hands: 2= Slight Tremor Visible Yawning Observation: 1= 1-2x During Session Anxiety or Irritability: 2=Irritable/Anxious Goose Flesh Skin: 3=Piloerection COWS Score: 14 S Progress Note (SOAP) Subjective: 68 years old male admitted on 09/25/19 for alcohol and opiate withdrawal sx management treated with librium and methadone detox regimen feeling less tremor but anxiety and general body ache Objective: 09/26/19 11:53 Vital Signs Temperature 98.4 F 09/26/19 06:30 Pulse Rate 56 L 09/26/19 06:30 Respiratory Rate 18 09/26/19 06:30 Blood Pressure 124/70 09/26/19 06:30 O2 Sat by Pulse Oximetry (%) Laboratory Last Values WBC 5.8 K/mm3 (4.0-10.0) 09/25/19 09:45 RBC 5.07 M/mm3 (4.00-5.60) 09/25/19 09:45 Hgb 13.3 GM/dL (11.7-16.9) 09/25/19 09:45 Hct 41.0 % (35.4-49) 09/25/19 09:45 MCV 80.9 fl (80-96) 09/25/19 09:45 MCH 26.2 pg (25.7-33.7) 09/25/19 09:45 MCHC 32.3 g/dl (32.0-35.9) 09/25/19 09:45 RDW 14.0 % (11.9-15.9) 09/25/19 09:45 Plt Count 183 K/MM3 (134-434) 09/25/19 09:45 MPV 8.6 fl (7.5-11.1) 09/25/19 09:45 Sodium 138 mmol/L (136-145) 09/25/19 09:45 Potassium 3.9 mmol/L (3.5-5.1) 09/25/19 09:45 Chloride 104 mmol/L (98-107) 09/25/19 09:45 Carbon Dioxide 28 mmol/L (21-32) 09/25/19 09:45 Anion Gap 6 MMOL/L (8-16) L 09/25/19 09:45 BUN 13.3 mg/dL (7-18) 09/25/19 09:45 Creatinine 1.0 mg/dL (0.55-1.3) 09/25/19 09:45 Est GFR (CKD-EPI)AfAm 90.50 09/25/19 09:45 Est GFR (CKD-EPI)NonAf 78.08 09/25/19 09:45 POC Glucometer 133 UNITS (80-120) 09/26/19 05:13 Random Glucose 251 mg/dL (74-106) H 09/25/19 09:45 Calcium 8.9 mg/dL (8.5-10.1) 09/25/19 09:45 Total Bilirubin 0.8 mg/dL (0.2-1) 09/25/19 09:45 AST 31 U/L (15-37) 09/25/19 09:45 ALT 28 U/L (13-61) 09/25/19 09:45 Alkaline Phosphatase 51 U/L (45-117) 09/25/19 09:45 Total Protein 7.0 g/dl (6.4-8.2) 09/25/19 09:45 Albumin 3.8 g/dl (3.4-5.0) 09/25/19 09:45 RPR Titer Nonreactive (NONREACTIVE) 09/25/19 09:45 lab noted Assessment: 09/26/19 11:54 alcohol and opiate withdrawal sx Plan: continue methadone detox regimen
--- NOTE | 2019-09-26 13:49 | CONSULT ---
[facility] Psychiatric Consult - Data Date of interview: 09/26/19 Admission source: [facility] Identifying data: Readmission to [facility] for this 68 y/o AA male, a [employer] , self-referred for detoxification (heroin, alcohol). Interviewed at [address] [place] [address]. Patient is single, father of two, domiciled, unemployed and supported on SSI benefits. Substance Abuse History: Discussed in this interview. Details in current [facility] report as follows : Smoking history: Current every day smoker. Have you smoked in the past 12 months: Yes. Aproximately how many cigarettes per day: 15. Cigars Per Day: 0. Hx Chewing Tobacco Use: No. Initiated information on smoking cessation: Yes. 'Breaking Loose' booklet given: 09/25/19. - Substances abused. Alcohol. Substance route: Oral. Frequency: Daily. Amount used: 2/6 packs. Age of first use: 19. Date of last use: 09/25/19. Heroin. Substance route: Inhalation. Frequency: Daily. Amount used: 5 bags. Age of first use: 19. Date of last use: 09/24/19 Medical History: Medical profile is remarkable for positive PPD, hepatitis C ( treated), diabetes mellitus, hypertension and dyslipidemia. Psychiatric History: Patient denies history of psychiatric hospitalizations. OPD care was set up to address chronic insomnia. Used to get trazodone 100 mg/ hs at the [facility] in [facility]. Mr Lenz denies history of suicide attempts. Physical/Sexual Abuse/Trauma History: Patient denies. Has never been in combat situations. Was stationed in [place]. Two years in the service. Additional Comment: Urine drug screen results: MOP-Opiates. Noted. Mental Status Exam - Mental Status Exam Alert and Oriented to: Time, Place, Person Cognitive Function: Good Patient Appearance: Well Groomed ( tall stature) Mood: Hopeful, Euthymic Affect: Appropriate, Normal Range Patient Behavior: Appropriate, Cooperative Speech Pattern: Clear, Appropriate Voice Loudness: Normal Thought Process: Intact, Goal Oriented Thought Disorder: Not Present Hallucinations: Denies Suicidal Ideation: Denies Homicidal Ideation: Denies Insight/Judgement: Poor Sleep: Well Appetite: Good Muscle strength/Tone: Normal Gait/Station: Normal Psychiatric Findings - Problem List ([place] 1, 2,3) (1) Alcohol dependence with uncomplicated withdrawal Current Visit: Yes Status: Acute (2) Opioid dependence with withdrawal Current Visit: Yes Status: Acute (3) Nicotine dependence Current Visit: Yes Status: Chronic - Initial Treatment Plan Initial Treatment Plan: Psychoeducation. Sleep hygiene. Detoxification. AA/NA meetings. MAT services discussed with patient : not interested. Declines to resume trazodone. Insomnia is addressed with suvorexant at bedtime (with patient 's verbal informed consent). Observation.
[2019-09-26] MEDS: THIAMINE HCL 100 MG TABLET (FP) PO SCH (22:00)
[2019-09-26] MEDS: SUVOREXANT 10 MG TABLET PO PRN (22:00)
[2019-09-27] MEDS: chlordiazePOXIDE HCL 25 MG CAPSULE PO SCH ×4 (05:16→22:51)
[2019-09-27] MEDS: metFORMIN HCL 500 MG TABLET (FP) PO SCH ×2 (06:15→17:25)
[2019-09-27] MEDS: LIRAGLUTIDE 0.6 MG/0.1 ML PEN.INJCTR SQ SCH (06:31)
[2019-09-27] MEDS: INSULIN (LEVEMIR) 100 UNITS/ML UNITS SQ SCH (09:41)
[2019-09-27] MEDS: PRENATAL VITAMINS W/ FOLIC ACID TABLET (FP) PO SCH (09:44)
[2019-09-27] MEDS: ASPIRIN COATED 81 MG TABLET.EC PO SCH (09:44)
[2019-09-27] MEDS: NICOTINE 14 MG/24 HOURS TOPICAL PATCH TD SCH (09:45)
[2019-09-27] MEDS ORDERED: METHADONE HCL 10 MG TABLET (FOR DETOX USE ONLY) PO ONE (10:00)
--- NOTE | 2019-09-27 12:59 | PN ---
S CIWA - CIWA Score Nausea/Vomitin-Mild Nausea/No Vomiting Muscle Tremors: 3 Anxiety: 3 Agitation: 2 Paroxysmal Sweats: 2 Orientation: 1-Uncertain about Date Tacttile Disturbances: 1-Very Mild Itch/Numbness Auditory Disturbances: 0-None Visual Disturbances: 0-None Headache: 0-None Present CIWA-Ar Total Score: 13 BHS COWS - Scale Resting Pulse: 0= [place] 80 or Below Sweatin= Chills/Flushing Restless Observation: 0= Sits Still Pupil Size: 0= Normal to Room Light Bone or Joint Aches: 2= Severe Diffuse Aches Runny Nose/ Eye Tearin= Nasal Congestion GI Upset > 30mins: 1= Stomach Cramp Tremor Observation of Outstretched Hands: 2= Slight Tremor Visible Yawning Observation: 1= 1-2x During Session Anxiety or Irritability: 2=Irritable/Anxious Goose Flesh Skin: 3=Piloerection COWS Score: 13 S Progress Note (SOAP) Subjective: 68 years old male admitted on 09/25/19 for alcohol and benzo withdrawal sx managemetn treated with librium and methadone detox regimen sleep better at night less anxiety Objective: 09/27/19 12:57 Vital Signs Temperature 97.1 F L 09/27/19 09:06 Pulse Rate 62 09/27/19 09:06 Respiratory Rate 18 09/27/19 09:06 Blood Pressure 125/71 09/27/19 09:06 O2 Sat by Pulse Oximetry (%) Laboratory Last Values WBC 5.8 K/mm3 (4.0-10.0) 09/25/19 09:45 RBC 5.07 M/mm3 (4.00-5.60) 09/25/19 09:45 Hgb 13.3 GM/dL (11.7-16.9) 09/25/19 09:45 Hct 41.0 % (35.4-49) 09/25/19 09:45 MCV 80.9 fl (80-96) 09/25/19 09:45 MCH 26.2 pg (25.7-33.7) 09/25/19 09:45 MCHC 32.3 g/dl (32.0-35.9) 09/25/19 09:45 RDW 14.0 % (11.9-15.9) 09/25/19 09:45 Plt Count 183 K/MM3 (134-434) 09/25/19 09:45 MPV 8.6 fl (7.5-11.1) 09/25/19 09:45 Sodium 138 mmol/L (136-145) 09/25/19 09:45 Potassium 3.9 mmol/L (3.5-5.1) 09/25/19 09:45 Chloride 104 mmol/L (98-107) 09/25/19 09:45 Carbon Dioxide 28 mmol/L (21-32) 09/25/19 09:45 Anion Gap 6 MMOL/L (8-16) L 09/25/19 09:45 BUN 13.3 mg/dL (7-18) 09/25/19 09:45 Creatinine 1.0 mg/dL (0.55-1.3) 09/25/19 09:45 Est GFR (CKD-EPI)AfAm 90.50 09/25/19 09:45 Est GFR (CKD-EPI)NonAf 78.08 09/25/19 09:45 POC Glucometer 112 UNITS (80-120) 09/27/19 05:15 Random Glucose 251 mg/dL (74-106) H 09/25/19 09:45 Calcium 8.9 mg/dL (8.5-10.1) 09/25/19 09:45 Total Bilirubin 0.8 mg/dL (0.2-1) 09/25/19 09:45 AST 31 U/L (15-37) 09/25/19 09:45 ALT 28 U/L (13-61) 09/25/19 09:45 Alkaline Phosphatase 51 U/L (45-117) 09/25/19 09:45 Total Protein 7.0 g/dl (6.4-8.2) 09/25/19 09:45 Albumin 3.8 g/dl (3.4-5.0) 09/25/19 09:45 RPR Titer Nonreactive (NONREACTIVE) 09/25/19 09:45 lab noted 09/27/19 12:59 long history of diabetes treated with metformin and insulin Assessment: 09/27/19 13:00 alcohol and benzo withdrawal sx Plan: continue librium and methadone detox regimen
[2019-09-27] MEDS: IBUPROFEN 400 MG TABLET (FP) PO PRN (14:11)
[2019-09-27] MEDS: LOPERAMIDE HCL 2 MG CAPSULE PO PRN (14:15)
[2019-09-27] MEDS: SUVOREXANT 10 MG TABLET PO PRN (22:50)
[2019-09-27] MEDS: THIAMINE HCL 100 MG TABLET (FP) PO SCH (22:51)
[2019-09-28] MEDS ORDERED: chlordiazePOXIDE HCL 10 MG CAPSULE PO PRN
[2019-09-28] MEDS: chlordiazePOXIDE HCL 10 MG CAPSULE PO SCH ×4 (05:20→22:31)
[2019-09-28] MEDS: metFORMIN HCL 500 MG TABLET (FP) PO SCH ×2 (07:55→17:15)
[2019-09-28] MEDS: LIRAGLUTIDE 0.6 MG/0.1 ML PEN.INJCTR SQ SCH (07:55)
[2019-09-28] MEDS ORDERED: METHADONE HCL 10 MG TABLET (FOR DETOX USE ONLY) ONE (08:36)
[2019-09-28] MEDS ORDERED: METHADONE HCL 5 MG TABLET (FOR DETOX USE ONLY) ONE (08:37)
[2019-09-28] MEDS ORDERED: METHADONE (DETOX) 10 MG, METHADONE (DETOX) 5 MG PO ONE (10:00)
[2019-09-28] MEDS: INSULIN (LEVEMIR) 100 UNITS/ML UNITS SQ SCH (10:10)
[2019-09-28] MEDS: NICOTINE 14 MG/24 HOURS TOPICAL PATCH TD SCH (10:11)
[2019-09-28] MEDS: ASPIRIN COATED 81 MG TABLET.EC PO SCH (10:11)
[2019-09-28] MEDS: PRENATAL VITAMINS W/ FOLIC ACID TABLET (FP) PO SCH (10:11)
--- NOTE | 2019-09-28 12:15 | PN ---
S CIWA - CIWA Score Nausea/Vomitin-No Nausea/No Vomiting Muscle Tremors: 3 Anxiety: 4-Mod. Anxious/Guarded Agitation: 2 Paroxysmal Sweats: 1-Minimal Palms Moist Orientation: 0-Oriented Tacttile Disturbances: 0-None Auditory Disturbances: 0-None Visual Disturbances: 0-None Headache: 2-Mild CIWA-Ar Total Score: 12 BHS COWS - Scale Resting Pulse: 0= [place] 80 or Below Sweatin= Chills/Flushing Restless Observation: 0= Sits Still Pupil Size: 1= Pupils >than Normal Bone or Joint Aches: 2= Severe Diffuse Aches Runny Nose/ Eye Tearin= Nasal Congestion GI Upset > 30mins: 2= Nausea/Diarrhea (no diarrhea) Tremor Observation of Outstretched Hands: 2= Slight Tremor Visible Yawning Observation: 1= 1-2x During Session Anxiety or Irritability: 2=Irritable/Anxious Goose Flesh Skin: 0=Smooth Skin COWS Score: 12 [facility] Progress Note (SOAP) Subjective: 68 years old male admitted on 09/25/19 for alcohol and benzo and opiate withdrawal sx management treated with librium and methadone detox regimen ate breakfast strong recommend the patient attend meetings and groups Objective: 09/28/19 12:19 Vital Signs Temperature 97.0 F L 09/28/19 09:19 Pulse Rate 73 09/28/19 09:19 Respiratory Rate 18 09/28/19 09:19 Blood Pressure 120/63 09/28/19 09:19 O2 Sat by Pulse Oximetry (%) Laboratory Last Values WBC 5.8 K/mm3 (4.0-10.0) 09/25/19 09:45 RBC 5.07 M/mm3 (4.00-5.60) 09/25/19 09:45 Hgb 13.3 GM/dL (11.7-16.9) 09/25/19 09:45 Hct 41.0 % (35.4-49) 09/25/19 09:45 MCV 80.9 fl (80-96) 09/25/19 09:45 MCH 26.2 pg (25.7-33.7) 09/25/19 09:45 MCHC 32.3 g/dl (32.0-35.9) 09/25/19 09:45 RDW 14.0 % (11.9-15.9) 09/25/19 09:45 Plt Count 183 K/MM3 (134-434) 09/25/19 09:45 MPV 8.6 fl (7.5-11.1) 09/25/19 09:45 Sodium 138 mmol/L (136-145) 09/25/19 09:45 Potassium 3.9 mmol/L (3.5-5.1) 09/25/19 09:45 Chloride 104 mmol/L (98-107) 09/25/19 09:45 Carbon Dioxide 28 mmol/L (21-32) 09/25/19 09:45 Anion Gap 6 MMOL/L (8-16) L 09/25/19 09:45 BUN 13.3 mg/dL (7-18) 09/25/19 09:45 Creatinine 1.0 mg/dL (0.55-1.3) 09/25/19 09:45 Est GFR (CKD-EPI)AfAm 90.50 09/25/19 09:45 Est GFR (CKD-EPI)NonAf 78.08 09/25/19 09:45 POC Glucometer 152 UNITS (80-120) 09/28/19 05:21 Random Glucose 251 mg/dL (74-106) H 09/25/19 09:45 Calcium 8.9 mg/dL (8.5-10.1) 09/25/19 09:45 Total Bilirubin 0.8 mg/dL (0.2-1) 09/25/19 09:45 AST 31 U/L (15-37) 09/25/19 09:45 ALT 28 U/L (13-61) 09/25/19 09:45 Alkaline Phosphatase 51 U/L (45-117) 09/25/19 09:45 Total Protein 7.0 g/dl (6.4-8.2) 09/25/19 09:45 Albumin 3.8 g/dl (3.4-5.0) 09/25/19 09:45 RPR Titer Nonreactive (NONREACTIVE) 09/25/19 09:45 lab noted 09/28/19 12:19 long history of diabetes treated with insulin Assessment: 09/28/19 12:21 alcohol benzo opiate withdrawal sx Plan: continue librium and methadone detox regimen
[2019-09-28] MEDS: THIAMINE HCL 100 MG TABLET (FP) PO SCH (22:31)
[2019-09-29] MEDS ORDERED: chlordiazePOXIDE HCL 10 MG CAPSULE PO SCH (05:00)
[2019-09-29] MEDS: LIRAGLUTIDE 0.6 MG/0.1 ML PEN.INJCTR SQ SCH (07:27)
[2019-09-29] MEDS: metFORMIN HCL 500 MG TABLET (FP) PO SCH (07:27)
[2019-09-29] MEDS ORDERED: METHADONE HCL 10 MG TABLET (FOR DETOX USE ONLY) PO ONE (10:00)
[2019-09-29] MEDS: ASPIRIN COATED 81 MG TABLET.EC PO SCH (10:08)
[2019-09-29] MEDS: NICOTINE 14 MG/24 HOURS TOPICAL PATCH TD SCH (10:08)
[2019-09-29] MEDS: PRENATAL VITAMINS W/ FOLIC ACID TABLET (FP) PO SCH (10:08)
[2019-09-29] MEDS: INSULIN (LEVEMIR) 100 UNITS/ML UNITS SQ SCH (10:08)
--- NOTE | 2019-09-29 13:04 | PN ---
[facility] CIWA - CIWA Score Nausea/Vomitin-Mild Nausea/No Vomiting Muscle Tremors: 1-None Visible, but [place] Anxiety: 2 Agitation: 2 Paroxysmal Sweats: No Perspiration Orientation: 0-Oriented Tacttile Disturbances: 1-Very Mild Itch/Numbness Auditory Disturbances: 0-None Visual Disturbances: 0-None Headache: 1-Very Mild CIWA-Ar Total Score: 8 BHS COWS - Scale Resting Pulse: 1= [place] 81-100 Sweatin= No chills or Flushing Restless Observation: 1= Difficult to Sit Still Pupil Size: 1= Pupils >than Normal Bone or Joint Aches: 1= Mild Discomfort Runny Nose/ Eye Tearin= Nasal Congestion GI Upset > 30mins: 1= Stomach Cramp Tremor Observation of Outstretched Hands: 1= Tremor [place], Not Seen Yawning Observation: 1= 1-2x During Session Anxiety or Irritability: 1=Feels Anxious/Irritable Goose Flesh Skin: 0=Smooth Skin COWS Score: 9 S Progress Note (SOAP) Subjective: alert,irritable,anxious,interrupted sleep,pain in the body Objective: 09/29/19 13:04 Vital Signs Temperature 97.9 F 09/29/19 09:28 Pulse Rate 83 09/29/19 09:28 Respiratory Rate 18 09/29/19 09:28 Blood Pressure 138/71 09/29/19 09:28 O2 Sat by Pulse Oximetry (%) Assessment: 09/29/19 13:04 withdrawal symptom Plan: continue detox methadone and librium regimen,bgm monitoring,discharge in am
[2019-09-29 13:12] VITALS: BP 145/72; PULSE 77; TEMP 98.7
--- NOTE | 2019-09-29 14:05 | PN ---
S Progress Note Note: patient is stable foe discharge to day,to go to [facility]
--- NOTE | 2019-09-29 14:08 | DS ---
[facility] Detox Discharge Summary Admission Date: 09/25/19 Discharge Date: 09/29/19 - History Present History: Alcohol Dependence, Opioid Dependence Additional Comments: stable for discharge to [facility] Pertinent Past History: hypertension type 2 dm hyperlipidemia - Physical Exam Results Vital Signs: Vital Signs Temperature 98.7 F 09/29/19 13:11 Pulse Rate 77 09/29/19 13:11 Respiratory Rate 18 09/29/19 13:11 Blood Pressure 145/72 09/29/19 13:11 O2 Sat by Pulse Oximetry (%) Pertinent Admission Physical Exam Findings: withdrawal signs and symptom Laboratory Last Values WBC 5.8 K/mm3 (4.0-10.0) 09/25/19 09:45 RBC 5.07 M/mm3 (4.00-5.60) 09/25/19 09:45 Hgb 13.3 GM/dL (11.7-16.9) 09/25/19 09:45 Hct 41.0 % (35.4-49) 09/25/19 09:45 MCV 80.9 fl (80-96) 09/25/19 09:45 MCH 26.2 pg (25.7-33.7) 09/25/19 09:45 MCHC 32.3 g/dl (32.0-35.9) 09/25/19 09:45 RDW 14.0 % (11.9-15.9) 09/25/19 09:45 Plt Count 183 K/MM3 (134-434) 09/25/19 09:45 MPV 8.6 fl (7.5-11.1) 09/25/19 09:45 Sodium 138 mmol/L (136-145) 09/25/19 09:45 Potassium 3.9 mmol/L (3.5-5.1) 09/25/19 09:45 Chloride 104 mmol/L (98-107) 09/25/19 09:45 Carbon Dioxide 28 mmol/L (21-32) 09/25/19 09:45 Anion Gap 6 MMOL/L (8-16) L 09/25/19 09:45 BUN 13.3 mg/dL (7-18) 09/25/19 09:45 Creatinine 1.0 mg/dL (0.55-1.3) 09/25/19 09:45 Est GFR (CKD-EPI)AfAm 90.50 11/11/19 09:45 Est GFR (CKD-EPI)NonAf 78.08 09/25/19 09:45 POC Glucometer 104 UNITS (80-120) 09/29/19 05:22 Random Glucose 251 mg/dL (74-106) H 09/25/19 09:45 Calcium 8.9 mg/dL (8.5-10.1) 09/25/19 09:45 Total Bilirubin 0.8 mg/dL (0.2-1) 09/25/19 09:45 AST 31 U/L (15-37) 09/25/19 09:45 ALT 28 U/L (13-61) 09/25/19 09:45 Alkaline Phosphatase 51 U/L (45-117) 09/25/19 09:45 Total Protein 7.0 g/dl (6.4-8.2) 09/25/19 09:45 Albumin 3.8 g/dl (3.4-5.0) 09/25/19 09:45 RPR Titer Nonreactive (NONREACTIVE) 09/25/19 09:45 - Treatment Hospital Course: Detox Protocol Followed, Detoxed Safely, Responded well, Discharged Condition Good, Rehab Referral Accepted Patient has Accepted a Rehab Referral to: [facility] - Medication Discharge Medications: Ambulatory Orders Aspirin [Ecotrin] 81 mg PO DAILY 08/04/19 Insulin Glargine,Hum.rec.anlog [Lantus] 24 unit SQ DAILY 08/04/19 Liraglutide [Victoza -] 1.8 mg SQ DAILY@0700 08/04/19 Metformin HCl [Glucophage] 1,000 mg PO BID 08/04/19 - Diagnosis (1) Opioid dependence with withdrawal Current Visit: Yes Status: Acute (2) DM2 (diabetes mellitus, type 2) Current Visit: Yes Status: Acute (3) Alcohol dependence with uncomplicated withdrawal Current Visit: Yes Status: Acute (4) Nicotine dependence Current Visit: Yes Status: Chronic (5) HLD (hyperlipidemia) Current Visit: No Status: Chronic Qualifiers: Hyperlipidemia type: unspecified Qualified Code(s): E78.5 - Hyperlipidemia , unspecified (6) HTN (hypertension) Current Visit: No Status: Chronic Qualifiers: Hypertension type: essential hypertension Qualified Code(s): I10 - Essential (primary) hypertension (7) History of hepatitis C Current Visit: No Status: Chronic - AMA Did Patient Leave Against Medical Advice: No
[2019-09-30] MEDS ORDERED: chlordiazePOXIDE HCL 10 MG CAPSULE PO ONE (05:00)
[2019-09-30] MEDS ORDERED: METHADONE HCL 5 MG TABLET (FOR DETOX USE ONLY) PO ONE (06:00)
== END 2019-09-29 14:47 | disposition other institution (70) | DRG 897 ==
LOC: YASAS 08:16 → Y3N 10:22
PROVIDERS: ADMIT Allergy & Immunology; ATTEND Allergy & Immunology
PROC: HZ2ZZZZ Detoxification Services for Substance Abuse Treatment (ICD-10-PCS; principal; 2019-09-25)
DX: F10.230 Alcohol dependence with withdrawal, uncomplicated (principal); F11.23 Opioid dependence with withdrawal; F13.230 Sedative, hypnotic or anxiolytic dependence with withdrawal, uncomplicated; F17.210 Nicotine dependence, cigarettes, uncomplicated; I10 Essential (primary) hypertension; E11.9 Type 2 diabetes mellitus without complications; Z79.4 Long term (current) use of insulin; E78.5 Hyperlipidemia, unspecified; G47.00 Insomnia, unspecified; R76.11 Nonspecific reaction to tuberculin skin test without active tuberculosis; Z86.19 Personal history of other infectious and parasitic diseases
CPT/HCPCS: 36415; 80053; 82962; 85027; 86593

== ENCOUNTER 2019-11-12 11:35 | Inpatient (IN) | payer OTHER ==
[2019-11-12 12:22] VITALS: BMI 25.0
--- NOTE | 2019-11-12 14:52 | HP ---
CIWA Score Nausea/Vomitin-No Nausea/No Vomiting Muscle Tremors: 4-Moderate,w/Arms Extend Anxiety: 1-Mildly Anxious Agitation: 3 Paroxysmal Sweats: 3 (Increased facial moisture) Orientation: 1-Uncertain about Date Tacttile Disturbances: 0-None Auditory Disturbances: 0-None Visual Disturbances: 0-None Headache: 0-None Present CIWA-Ar Total Score: 12 - Admission Criteria OASAS Guidelines: Admission for Medically Managed Detox: Requires at least one of the followin. CIWA greater than 12 2. Seizures within the past 24 hours 3. Delirium tremens within the past 24 hours 4. Hallucinations within the past 24 hours 5. Acute intervention needed for co occurring medical disorder 6. Acute intervention needed for co occurring psychiatric disorder 7. Severe withdrawal that cannot be handled at a lower level of care (continued vomiting, continued diarrhea, abnormal vital signs) requiring intravenous medication and/or fluids 8. Patient presents the following: CIWA greater than 12 Admission Criteria Met: Admission criteria met Admitting History and Physical - Past Medical History Cardiovascular: Yes: HTN, Hyperlipdemia Psych: Yes: Other (Insomnia) Endocrine: Yes: Diabetes Mellitus - Past Surgical History Past Surgical History: Yes: None - Smoking History Smoking history: Current every day smoker Have you smoked in the past 12 months: Yes Aproximately how many cigarettes per day: 15 - Alcohol/Substance Use Hx Alcohol Use: Yes (2 packs of 6 beers daily) Number of Drinks Daily: 12 History of Substance Use: reports: Heroin Date of Last Use: 09/24/19 - Social History ADL: Independent 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 Last [facility] Detox- 09/25/2019 for heroin use. [facility] now heroin free but has noticed an increase in alcohol use. [facility] has been having blackouts for years and now notices has been falling. Hx overdoses. Last 2 months ago. Denies seizures. Alcohol use since age since age 19. Currently drinking 18 -16oz beers/day and also hard liquor. Heroin: Last used heroin 1 month ago. Was on Suboxone for a few days but no longer on it. Nicotine use since age since age 19. Smokes 1/2 PPD. PMHx: HTN, HLD, Neuropathy (tingling/pain in great toe), DM. Last saw PCP 1.5 yrs ago. Patient on high doses of gabapentin. With hx of falls and age, informed patient that dose would be decreased to 100 mg TID. Patient requesting Ensure, explained that based on weight and hx DM, Ensure or Glucerna would not be appropriate. RPR: 09/25/19: Nonreactive MHHx: Insomnia. Denies thoughts of harming self or others. SHx: Domiciled. Unemployed. Denies legal issues. Patient Name: Joseph Lenz Date: 1950 Address: [address] [place] [address] Sex: Male Rx Written Rx Dispensed Drug Quantity Days Supply Prescriber Name 10/06/2019 10/09/2019 buprenorphine-naloxone 2-0.5 mg sl film 30 15 Daisy Philip MD Exam Limitations: No Limitations - Ebola screening Have you traveled outside of the country in the last 21 days: No (N) Have you had contact with anyone from an Ebola affected area: No Have you been sick,other than usual withdrawal symptoms: No Do you have a fever: No - Review of Systems Constitutional: Changes in sleep (Difficulty falling asleep), Weight Stable ( But less than would like.), Unintentional Wgt. Loss EENT: reports: Blurred Vision, Dental Problems (Has dentures. Did not bring. Able to chew and swallow ok) Respiratory: reports: No Symptoms reported Cardiac: reports: No Symptoms Reported GI: reports: Diarrhea (States took imodium this a.m.), Indigestion (Heart burn - takes omeprazole) : reports: No Symptoms Reported Musculoskeletal: reports: Joint Pain (Arthritis in all joints. Achy pain.) Integumentary: reports: No Symptoms Reported Neuro: reports: Numbness ((L) great toe - takes gabapentin.), Tremors Endocrine: reports: Increased Thirst Hematology: reports: No Symptoms Reported Psychiatric: reports: Judgement Intact, Orientated x3 (Misssed day by 1), Agitated, Anxious Patient History - Patient Medical History Hx Anemia: No Hx Asthma: No Hx Chronic Obstructive Pulmonary Disease (COPD): Yes Hx Cancer: No Hx Cardiac Disorders: No Hx Congestive Heart Failure: No Hx Hypertension: Yes Hx Hypercholesterolemia: Yes Hx Pacemaker: No HX Cerebrovascular Accident: No Hx Seizures: No Hx Dementia: No Hx Diabetes: Yes (Non compliant with meds BGM 262mg/dl) Hx Gastrointestinal Disorders: No Hx Liver Disease: Yes (HCV TREATED) Hx Genitourinary Disorders: No Hx Sexually Transmitted Disorders: No Hx Renal Disease (ESRD): No Hx Thyroid Disease: No Hx Human Immunodeficiency Virus (HIV): No Hx Hepatitis C: No Hx Depression: No Hx Suicide Attempt: No Hx Bipolar Disorder: No Hx Schizophrenia: No - Patient Surgical History Past Surgical History: No Hx Neurologic Surgery: No Hx Cataract Extraction: No Hx Cardiac Surgery: No Hx Lung Surgery: No Hx Breast Surgery: No Hx Breast Biopsy: No Hx Abdominal Surgery: No Hx Appendectomy: No Hx Cholecystectomy: No Hx Genitourinary Surgery: No Hx Section: No Hx Orthopedic Surgery: No Anesthesia Reaction: No - PPD History Previous Implant?: No Documented Results: Positive w/o proof Implanted On Prior [facility] Admission?: No PPD to be Administered?: No - Smoking Cessation Smoking history: Current every day smoker Have you smoked in the past 12 months: Yes Aproximately how many cigarettes per day: 10 Cigars Per Day: 0 Hx Chewing Tobacco Use: No Initiated information on smoking cessation: Yes 'Breaking Loose' booklet given: 11/12/19 - Substance & Tx. History Hx Alcohol Use: Yes Hx Substance Use: Yes Substance Use Type: Alcohol, Heroin Hx Substance Use Treatment: Yes (detox, past Suboxone) - Substances abused Alcohol Substance route: Oral Frequency: Daily Amount used: 3 (6 packs of beer ) Age of first use: 19 Date of last use: 11/12/19 Heroin Substance route: Inhalation Frequency: Daily Amount used: 5 bags Age of first use: 19 Date of last use: 09/24/19 Admission Physical Exam [facility] - Vital Signs Vital Signs: Vital Signs - 24 hr 11/12/19 11/12/19 12:01 13:28 Pulse Rate 98 H 98 H Respiratory 18 18 Rate Blood Pressure 114/55 L 114/55 L - Physical General Appearance: Yes: Nourished, Mild Distress, Tremorous, Irritable, Sweating (Increased facial moisture) HEENTM: Yes: EOMI, Hearing grossly Normal, Normocephalic, Normal Voice, SAM, Pharynx Normal Respiratory: Yes: Lungs Clear (Pulse Ox = 98 %), Normal Breath Sounds, No Respiratory Distress Neck: Yes: No masses,lesions,Nodules, Supple Breast: Yes: Breast Exam Deferred Cardiology: Yes: Regular Rhythm, Regular Rate, S1, S2 Abdominal: Yes: Non Tender, Flat, Soft, Increased Bowel Sounds Genitourinary: Yes: Within Normal Limits Back: Yes: Normal Inspection Musculoskeletal: Yes: full range of Motion, Gait Steady Extremities: Yes: Normal Capillary Refill (Peripheral pulses +), Tremors (gross) Neurological: Yes: returned goods sorter II-XII NML intact, Alert, Motor Strength 5/5, Normal Response Integumentary: Yes: Normal Color, Warm, Moist (Increased facial moisture) Lymphatic: Yes: Within Normal Limits - Diagnostic (1) Alcohol dependence with uncomplicated withdrawal Current Visit: Yes Status: Acute (2) DM2 (diabetes mellitus, type 2) Current Visit: Yes Status: Chronic Qualifiers: Diabetes mellitus retirement insulin use: unspecified retirement insulin use status Diabetes mellitus complication status: without complication Qualified Code(s): E11.9 - Type 2 diabetes mellitus without complications (3) HLD (hyperlipidemia) Current Visit: Yes Status: Chronic Qualifiers: Hyperlipidemia type: unspecified Qualified Code(s): E78.5 - Hyperlipidemia , unspecified (4) HTN (hypertension) Current Visit: Yes Status: Chronic Qualifiers: Hypertension type: essential hypertension Qualified Code(s): I10 - Essential (primary) hypertension (5) History of positive PPD Current Visit: Yes Status: Chronic (6) Insomnia Current Visit: Yes Status: Chronic Qualifiers: Insomnia type: unspecified Qualified Code(s): G47.00 - Insomnia, unspecified (7) Nicotine dependence Current Visit: Yes Status: Chronic Qualifiers: Nicotine product type: cigarettes Substance use status: uncomplicated Qualified Code(s): F17.210 - Nicotine dependence, cigarettes, uncomplicated (8) Opioid use disorder, moderate, in early remission Current Visit: Yes Status: Chronic Comment: Stopped all opiates and suboxone 3 weeks ago. Cleared for Admission S - Detox or Rehab [facility] Level of Care: Medically Managed Detox Regimen/Protocol: Librium Claeared for Rehab Admission: No Breathalyzer - Breathalyzer Breathalyzer: 0 Urine Drug Screen - Test Device Lot number: [id number] Expiration date: 06/14/21 - Control Is test valid?: Yes - Results Drug screen NEGATIVE: Yes Urine drug screen results: MOP-Opiates Inpatient Rehab Admission - Rehab Decision to Admit Inpatient rehab admission?: No
[2019-11-12] MEDS ORDERED: MAGNESIUM HYDROX 2400MG/30ML ORAL SUSPENSION 30 ML CUP PO PRN (15:30)
[2019-11-12] MEDS ORDERED: ACETAMINOPHEN 325 MG TABLET (FP) PO PRN ×2 (15:30)
[2019-11-12] MEDS ORDERED: MELATONIN 5 MG TABLETS PO PRN (15:30)
[2019-11-12] MEDS ORDERED: MAGNESIUM CITRATE 300 ML BOTTLE PO PRN (15:30)
[2019-11-12] MEDS ORDERED: BISMUTH SUBSALICYLATE 524 MG/30 ML UD PO PRN (15:30)
[2019-11-12] MEDS ORDERED: MAG HYDROX/AL HYDROX/SIMETH 30 ML UNIT-DOSE CUP PO PRN (15:30)
[2019-11-12] MEDS ORDERED: METHOCARBAMOL 500 MG TABLET PO PRN (15:30)
[2019-11-12] MEDS ORDERED: MENTHOL/PHENOL 1 EACH UD MM PRN (15:30)
[2019-11-12] MEDS ORDERED: NICOTINE POLACRILEX 2 MG GUM BUC PRN (15:30)
[2019-11-12] MEDS ORDERED: chlordiazePOXIDE HCL 10 MG CAPSULE PO PRN (15:34)
[2019-11-12] MEDS ORDERED: chlordiazePOXIDE HCL 25 MG CAPSULE PO ONE ×2 (15:34→17:30)
[2019-11-12] MEDS: metFORMIN HCL 500 MG TABLET (FP) PO SCH (17:08)
[2019-11-12] MEDS ORDERED: chlordiazePOXIDE 5 MG CAPSULE PO PRN ×2 (17:18→17:19)
[2019-11-12] MEDS ORDERED: chlordiazePOXIDE HCL 10 MG CAPSULE PO ONE (17:30)
[2019-11-12] MEDS ORDERED: INSULIN GLARGINE HUM REC ANLOG 24 UNIT SQ SCH (20:00)
[2019-11-12] MEDS ORDERED: INSULIN (LEVEMIR) 100 UNITS/ML UNITS SQ SCH (20:00)
[2019-11-12] MEDS ORDERED: [UNRECOGNIZED DRUG - OTHER] SQ SCH (20:00)
[2019-11-12] MEDS: GABAPENTIN 100 MG CAPSULE (FP) PO SCH (21:05)
[2019-11-12] MEDS: chlordiazePOXIDE HCL 25 MG CAPSULE PO SCH (21:05)
[2019-11-12] MEDS: ATORVASTATIN CA 40 MG TABLET (FP) PO SCH (21:05)
[2019-11-12] MEDS: THIAMINE HCL 100 MG TABLET (FP) PO SCH (21:06)
[2019-11-12] MEDS ORDERED: PATIENT'S OWN MEDICATION (NON-FORMULARY) (Metformin Hcl [Glucophage] 1,000 MG) PO SCH (22:00)
[2019-11-13] MEDS: GABAPENTIN 100 MG CAPSULE (FP) PO SCH ×3 (06:03→22:20)
[2019-11-13] MEDS: metFORMIN HCL 500 MG TABLET (FP) PO SCH ×2 (06:03→17:22)
[2019-11-13] MEDS: chlordiazePOXIDE HCL 25 MG CAPSULE PO SCH ×3 (06:03→22:20)
[2019-11-13] MEDS: LIRAGLUTIDE 0.6 MG/0.1 ML PEN.INJCTR SQ SCH (06:08)
--- NOTE | 2019-11-13 09:21 | CONSULT ---
[facility] Psychiatric Consult - Data Date of interview: 11/13/19 Admission source: [facility] Identifying data: Patient is a 69 year old single black male, father of two, domiciled, and is supported by his usp benefits and SSI. This is one of multiple admissions for patient. Patient admitted to for alcohol and opiate dependence. Substance Abuse History: - Smoking Cessation. Smoking history: Current every day smoker. Have you smoked in the past 12 months: Yes. Aproximately how many cigarettes per day: 10. Cigars Per Day: 0. Hx Chewing Tobacco Use: No. Initiated information on smoking cessation: Yes. 'Breaking Loose' booklet given : 11/12/19. - Substance & Tx. History. Hx Alcohol Use: Yes. Hx Substance Use : Yes. Substance Use Type: Alcohol, Heroin. Hx Substance Use Treatment: Yes ( detox, past Suboxone). - Substances abused. Alcohol. Substance route: Oral. Frequency: Daily. Amount used: 3 (6 packs of beer ). Age of first use: 19. Date of last use: 11/12/19. Heroin. Substance route: Inhalation. Frequency: Daily. Amount used: 5 bags. Age of first use: 19. Date of last use : 09/24/19 Medical History: Medical profile is remarkable for positive PPD, hepatitis C ( treated), diabetes mellitus, hypertension and dyslipidemia. Psychiatric History: Mr. Lenz reports a brief history of outpatient psychiatric care at [facility] due to his history of chronic insomnia which was address with trazodone 100mg HS. Patient is not currently receiving psychiatric care. He denies history of psychiatric hospitalizations and suicide attempt. At present, patient is experiencing difficulty sleeping. Physical/Sexual Abuse/Trauma History: denies. Mental Status Exam - Mental Status Exam Alert and Oriented to: Time, Place, Person Cognitive Function: Good Patient Appearance: Well Groomed Mood: Euthymic Affect: Appropriate Patient Behavior: Appropriate, Cooperative Speech Pattern: Appropriate Voice Loudness: Normal Thought Process: Intact, Goal Oriented Thought Disorder: Not Present Hallucinations: Denies Suicidal Ideation: Denies Homicidal Ideation: Denies Insight/Judgement: Poor Sleep: Poorly Appetite: Fair Muscle strength/Tone: Normal Gait/Station: Normal Psychiatric Findings - Problem List ([place] 1, 2,3) (1) Substance-induced sleep disorder Current Visit: Yes Status: Acute (2) Alcohol dependence with uncomplicated withdrawal Current Visit: Yes Status: Acute (3) Nicotine dependence Current Visit: Yes Status: Chronic Qualifiers: Nicotine product type: cigarettes Substance use status: uncomplicated Qualified Code(s): F17.210 - Nicotine dependence, cigarettes, uncomplicated (4) Opioid use disorder, moderate, in early remission Current Visit: Yes Status: Chronic Comment: Stopped all opiates and suboxone 3 weeks ago. - Initial Treatment Plan Initial Treatment Plan: Psychoeducation provided. Detoxification in progress. Will order Trazodone 100mg HS. Benefits and side effects discussed. Verbal consent given.
[2019-11-13 09:47] LABS: HEMATOCRIT 39.7 % (35.4-49); HEMOGLOBIN 12.7 GM/dL (11.7-16.9); MCH 25.9 pg (25.7-33.7); MCHC 31.9 g/dl (32.0-35.9); MEAN CELL VOLUME 81.2 fl (80-96); MEAN PLT VOLUME 7.9 fl (7.5-11.1); PLATELET COUNT 240 K/MM3 (134-434); RBC 4.89 M/mm3 (4.00-5.60); RDW 14.6 % (11.9-15.9); WHITE BLOOD COUNT 5.5 K/mm3 (4.0-10.0)
[2019-11-13] MEDS ORDERED: LOPERAMIDE HCL 2 MG CAPSULE PO ONE (10:00)
[2019-11-13] MEDS ORDERED: EMPAGLIFLOZIN PO SCH (10:00)
[2019-11-13] MEDS ORDERED: PATIENT'S OWN MEDICATION (NON-FORMULARY) (Losartan/Hydrochlorothiazide [Losartan-Hctz 100- PO SCH (10:00)
[2019-11-13] MEDS: ASPIRIN COATED 81 MG TABLET.EC PO SCH (10:29)
[2019-11-13] MEDS: PRENATAL VITAMINS W/ FOLIC ACID TABLET (FP) PO SCH (10:29)
[2019-11-13] MEDS: HYDROCHLOROTHIAZIDE 12.5 MG CAPSULE (FP) PO SCH (10:29)
[2019-11-13] MEDS: METOPROLOL TARTRATE 25 MG TABLET (FP) PO SCH (10:29)
[2019-11-13] MEDS: LOSARTAN POTASSIUM 50 MG TABLET (FP) PO SCH (10:29)
[2019-11-13] MEDS: IBUPROFEN 400 MG TABLET (FP) PO PRN (10:30)
[2019-11-13] MEDS: NICOTINE 14 MG/24 HOURS TOPICAL PATCH TD SCH (10:30)
[2019-11-13 10:34] LABS: ALBUMIN 3.5 g/dl (3.4-5.0); BILIRUBIN,TOTAL 0.3 mg/dL (0.2-1); BLOOD UREA NITROGEN 10.1 mg/dL (7-18); CALCIUM 8.8 mg/dL (8.5-10.1); CREATININE 0.7 mg/dL (0.55-1.3); TOT PROT 6.5 g/dl (6.4-8.2)
[2019-11-13 10:44] LABS: PH,URINE 5.5 (5.0-8.0); URINE APPEARANCE CLEAR; URINE BILIRUBIN NEGATIVE (NEGATIVE); URINE COLOR YELLOW; URINE GLUCOSE (UA) 3+ (NEGATIVE); URINE KETONE NEGATIVE (NEGATIVE); URINE LEUK ESTERASE NEGATIVE (NEGATIVE); URINE NITRITE NEGATIVE (NEGATIVE); URINE PROTEIN NEGATIVE (NEGATIVE); URINE UROBILINOGEN 0.2 mg/dL (0.2-1.0)
--- NOTE | 2019-11-13 11:18 | PN ---
[facility] CIWA - CIWA Score Nausea/Vomitin-Mild Nausea/No Vomiting Muscle Tremors: 2 Anxiety: 3 Agitation: 1-Slight > Activity Paroxysmal Sweats: 2 Orientation: 1-Uncertain about Date Tacttile Disturbances: 0-None Auditory Disturbances: 0-None Visual Disturbances: 0-None Headache: 1-Very Mild CIWA-Ar Total Score: 11 S Progress Note (SOAP) Subjective: 69 years old male admitted on 11/12/19 for alcohol withdrawal sx management treating with librium detox regimen ekg indicates premature atrial complex with tachycardia patient is asymptomatic alert oriented x 2 denies chest pain denies dizziness no shortness of breath c/o loose stool after breakfast imodium 4 mg po x 1 Objective: 11/13/19 11:16 Vital Signs Temperature 98.4 F 11/13/19 09:13 Pulse Rate 89 11/13/19 09:13 Respiratory Rate 18 11/13/19 09:13 Blood Pressure 119/69 11/13/19 09:13 O2 Sat by Pulse Oximetry (%) Laboratory Last Values WBC 5.5 K/mm3 (4.0-10.0) 11/13/19 08:00 RBC 4.89 M/mm3 (4.00-5.60) 11/13/19 08:00 Hgb 12.7 GM/dL (11.7-16.9) 11/13/19 08:00 Hct 39.7 % (35.4-49) 11/13/19 08:00 MCV 81.2 fl (80-96) 11/13/19 08:00 MCH 25.9 pg (25.7-33.7) 11/13/19 08:00 MCHC 31.9 g/dl (32.0-35.9) L 11/13/19 08:00 RDW 14.6 % (11.9-15.9) 11/13/19 08:00 Plt Count 240 K/MM3 (134-434) D 11/13/19 08:00 MPV 7.9 fl (7.5-11.1) 11/13/19 08:00 Sodium 143 mmol/L (136-145) 11/13/19 08:00 Potassium 4.0 mmol/L (3.5-5.1) 11/13/19 08:00 Chloride 112 mmol/L (98-107) H 11/13/19 08:00 Carbon Dioxide 27 mmol/L (21-32) 11/13/19 08:00 Anion Gap 4 MMOL/L (8-16) L 11/13/19 08:00 BUN 10.1 mg/dL (7-18) 11/13/19 08:00 Creatinine 0.7 mg/dL (0.55-1.3) 11/13/19 08:00 Est GFR (CKD-EPI)AfAm 113.18 11/13/19 08:00 Est GFR (CKD-EPI)NonAf 97.65 11/13/19 08:00 POC Glucometer 99 UNITS (80-120) 11/13/19 06:05 Random Glucose 124 mg/dL (74-106) H 11/13/19 08:00 Calcium 8.8 mg/dL (8.5-10.1) 11/13/19 08:00 Total Bilirubin 0.3 mg/dL (0.2-1) 11/13/19 08:00 AST 27 U/L (15-37) 11/13/19 08:00 ALT 44 U/L (13-61) 11/13/19 08:00 Alkaline Phosphatase 47 U/L (45-117) 11/13/19 08:00 Total Protein 6.5 g/dl (6.4-8.2) 11/13/19 08:00 Albumin 3.5 g/dl (3.4-5.0) 11/13/19 08:00 Urine Color Yellow 11/13/19 07:00 Urine Appearance Clear 11/13/19 07:00 Urine pH 5.5 (5.0-8.0) 11/13/19 07:00 Ur Specific [place] 1.039 (1.010-1.035) H 11/13/19 07:00 Urine Protein Negative (NEGATIVE) 11/13/19 07:00 Urine Glucose (UA) 3+ (NEGATIVE) H 11/13/19 07:00 Urine Ketones Negative (NEGATIVE) 11/13/19 07:00 Urine Blood Negative (NEGATIVE) 11/13/19 07:00 Urine Nitrite Negative (NEGATIVE) 11/13/19 07:00 Urine Bilirubin Negative (NEGATIVE) 11/13/19 07:00 Urine Urobilinogen 0.2 mg/dL (0.2-1.0) 11/13/19 07:00 Ur Leukocyte Esterase Negative (NEGATIVE) 11/13/19 07:00 lab noted patient is taking levamir 24 units daily reduces to 22 units daily due to bgm within the lower range Assessment: 11/13/19 11:18 alcohol withdrawal Plan: librium regimen
--- NOTE | 2019-11-13 11:38 | EKG ---
Test Reason : Blood Pressure : / mmHG Vent. Rate : 089 BPM Atrial Rate : 089 BPM P-R Int : 154 ms QRS Dur : 100 ms QT Int : 360 ms P-R-T Axes : 070 073 070 degrees QTc Int : 438 ms SINUS RHYTHM WITH OCCASIONAL PREMATURE VENTRICULAR COMPLEXES POSSIBLE LEFT ATRIAL ENLARGEMENT SEPTAL INFARCT , AGE UNDETERMINED ABNORMAL ECG NO PREVIOUS ECGS AVAILABLE Confirmed by MAKAYLA NORTON MD ([id number]) on 11/13/2019 11:38:09 AM Referred By: DONG Confirmed By:MAKAYLA NORTON MD
[2019-11-13] MEDS: THIAMINE HCL 100 MG TABLET (FP) PO SCH (22:20)
[2019-11-13] MEDS: ATORVASTATIN CA 40 MG TABLET (FP) PO SCH (22:20)
[2019-11-13] MEDS: traZODone HCL 100 MG TABLET (FP) PO SCH (22:21)
[2019-11-13] MEDS: METHYL SALICYLATE/MENTHOL OINT 30 GM TUBE TP SCH (22:22)
[2019-11-13] MEDS: INSULIN (LEVEMIR) 100 UNITS/ML UNITS SQ SCH (22:24)
[2019-11-14] MEDS: chlordiazePOXIDE 5 MG CAPSULE PO SCH ×3 (05:41→22:07)
[2019-11-14] MEDS: GABAPENTIN 100 MG CAPSULE (FP) PO SCH ×3 (05:42→22:07)
[2019-11-14] MEDS: LIRAGLUTIDE 0.6 MG/0.1 ML PEN.INJCTR SQ SCH (06:17)
[2019-11-14] MEDS: metFORMIN HCL 500 MG TABLET (FP) PO SCH ×2 (06:18→16:43)
[2019-11-14] MEDS: LOSARTAN POTASSIUM 50 MG TABLET (FP) PO SCH (09:43)
[2019-11-14] MEDS: HYDROCHLOROTHIAZIDE 12.5 MG CAPSULE (FP) PO SCH (09:44)
[2019-11-14] MEDS: METOPROLOL TARTRATE 25 MG TABLET (FP) PO SCH (09:44)
[2019-11-14] MEDS: ASPIRIN COATED 81 MG TABLET.EC PO SCH (09:44)
[2019-11-14] MEDS: METHYL SALICYLATE/MENTHOL OINT 30 GM TUBE TP SCH ×2 (09:44→23:10)
[2019-11-14] MEDS: PRENATAL VITAMINS W/ FOLIC ACID TABLET (FP) PO SCH (09:44)
[2019-11-14] MEDS: NICOTINE 14 MG/24 HOURS TOPICAL PATCH TD SCH (09:44)
--- NOTE | 2019-11-14 10:30 | EKG ---
Test Reason : Blood Pressure : / mmHG Vent. Rate : 087 BPM Atrial Rate : 087 BPM P-R Int : 166 ms QRS Dur : 104 ms QT Int : 354 ms P-R-T Axes : 071 075 071 degrees QTc Int : 425 ms SINUS RHYTHM WITH OCCASIONAL PREMATURE VENTRICULAR COMPLEXES SEPTAL INFARCT (CITED ON OR BEFORE 12-NOV-2019) ABNORMAL ECG WHEN COMPARED WITH ECG OF 12-NOV-2019 16:18, NO SIGNIFICANT CHANGE WAS FOUND Confirmed by MD Guero, Jacob ([id number]) on 11/14/2019 10:30:33 AM Referred By: Confirmed By:Jacob Jack MD
--- NOTE | 2019-11-14 12:16 | PN ---
[facility] CIWA - CIWA Score Nausea/Vomitin-No Nausea/No Vomiting Muscle Tremors: 2 Anxiety: 2 Agitation: 2 Paroxysmal Sweats: 1-Minimal Palms Moist Orientation: 0-Oriented Tacttile Disturbances: 0-None Auditory Disturbances: 0-None Visual Disturbances: 0-None Headache: 1-Very Mild CIWA-Ar Total Score: 8 S Progress Note (SOAP) Subjective: 69 years old male admitted on 11/12/19 for alcohol withdrawal sx management treating with librium detox regimen feeling better today ate breakfast social with peers in day room Objective: 11/14/19 12:15 Vital Signs Temperature 98.8 F 11/14/19 09:04 Pulse Rate 85 11/14/19 09:04 Respiratory Rate 148 H 11/14/19 09:04 Blood Pressure 137/70 11/14/19 09:04 O2 Sat by Pulse Oximetry (%) Laboratory Last Values WBC 5.5 K/mm3 (4.0-10.0) 11/13/19 08:00 RBC 4.89 M/mm3 (4.00-5.60) 11/13/19 08:00 Hgb 12.7 GM/dL (11.7-16.9) 11/13/19 08:00 Hct 39.7 % (35.4-49) 11/13/19 08:00 MCV 81.2 fl (80-96) 11/13/19 08:00 MCH 25.9 pg (25.7-33.7) 11/13/19 08:00 MCHC 31.9 g/dl (32.0-35.9) L 11/13/19 08:00 RDW 14.6 % (11.9-15.9) 11/13/19 08:00 Plt Count 240 K/MM3 (134-434) D 11/13/19 08:00 MPV 7.9 fl (7.5-11.1) 11/13/19 08:00 Sodium 143 mmol/L (136-145) 11/13/19 08:00 Potassium 4.0 mmol/L (3.5-5.1) 11/13/19 08:00 Chloride 112 mmol/L (98-107) H 11/13/19 08:00 Carbon Dioxide 27 mmol/L (21-32) 11/13/19 08:00 Anion Gap 4 MMOL/L (8-16) L 11/13/19 08:00 BUN 10.1 mg/dL (7-18) 11/13/19 08:00 Creatinine 0.7 mg/dL (0.55-1.3) 11/13/19 08:00 Est GFR (CKD-EPI)AfAm 113.18 11/13/19 08:00 Est GFR (CKD-EPI)NonAf 97.65 11/13/19 08:00 POC Glucometer 185 UNITS (80-120) 11/14/19 05:44 Random Glucose 124 mg/dL (74-106) H 11/13/19 08:00 Calcium 8.8 mg/dL (8.5-10.1) 11/13/19 08:00 Total Bilirubin 0.3 mg/dL (0.2-1) 11/13/19 08:00 AST 27 U/L (15-37) 11/13/19 08:00 ALT 44 U/L (13-61) 11/13/19 08:00 Alkaline Phosphatase 47 U/L (45-117) 11/13/19 08:00 Total Protein 6.5 g/dl (6.4-8.2) 11/13/19 08:00 Albumin 3.5 g/dl (3.4-5.0) 11/13/19 08:00 Urine Color Yellow 11/13/19 07:00 Urine Appearance Clear 11/13/19 07:00 Urine pH 5.5 (5.0-8.0) 11/13/19 07:00 Ur Specific [place] 1.039 (1.010-1.035) H 11/13/19 07:00 Urine Protein Negative (NEGATIVE) 11/13/19 07:00 Urine Glucose (UA) 3+ (NEGATIVE) H 11/13/19 07:00 Urine Ketones Negative (NEGATIVE) 11/13/19 07:00 Urine Blood Negative (NEGATIVE) 11/13/19 07:00 Urine Nitrite Negative (NEGATIVE) 11/13/19 07:00 Urine Bilirubin Negative (NEGATIVE) 11/13/19 07:00 Urine Urobilinogen 0.2 mg/dL (0.2-1.0) 11/13/19 07:00 Ur Leukocyte Esterase Negative (NEGATIVE) 11/13/19 07:00 lab noted Assessment: 11/14/19 12:16 alcohol withdrawal Plan: librium regimen
[2019-11-14] MEDS: INSULIN (LEVEMIR) 100 UNITS/ML UNITS SQ SCH (22:06)
[2019-11-14] MEDS: ATORVASTATIN CA 40 MG TABLET (FP) PO SCH (22:07)
[2019-11-14] MEDS: THIAMINE HCL 100 MG TABLET (FP) PO SCH (22:07)
[2019-11-14] MEDS: traZODone HCL 100 MG TABLET (FP) PO SCH (23:10)
[2019-11-15] MEDS ORDERED: chlordiazePOXIDE HCL 10 MG CAPSULE PO PRN
[2019-11-15] MEDS: chlordiazePOXIDE HCL 10 MG CAPSULE PO SCH ×3 (06:01→22:36)
[2019-11-15] MEDS: GABAPENTIN 100 MG CAPSULE (FP) PO SCH ×3 (06:01→22:36)
[2019-11-15] MEDS: LIRAGLUTIDE 0.6 MG/0.1 ML PEN.INJCTR SQ SCH (07:42)
[2019-11-15] MEDS: metFORMIN HCL 500 MG TABLET (FP) PO SCH ×2 (07:42→17:16)
[2019-11-15] MEDS: PRENATAL VITAMINS W/ FOLIC ACID TABLET (FP) PO SCH (10:06)
[2019-11-15] MEDS: HYDROCHLOROTHIAZIDE 12.5 MG CAPSULE (FP) PO SCH (10:06)
[2019-11-15] MEDS: ASPIRIN COATED 81 MG TABLET.EC PO SCH (10:07)
[2019-11-15] MEDS: METOPROLOL TARTRATE 25 MG TABLET (FP) PO SCH (10:07)
[2019-11-15] MEDS: LOSARTAN POTASSIUM 50 MG TABLET (FP) PO SCH (10:07)
[2019-11-15] MEDS: IBUPROFEN 400 MG TABLET (FP) PO PRN (10:07)
[2019-11-15] MEDS: NICOTINE 14 MG/24 HOURS TOPICAL PATCH TD SCH (10:08)
[2019-11-15] MEDS ORDERED: INSULIN (LEVEMIR) 100 UNITS/ML UNITS SQ SCH (11:13)
--- NOTE | 2019-11-15 11:13 | PN ---
[facility] CIWA - CIWA Score Nausea/Vomitin-No Nausea/No Vomiting Muscle Tremors: 2 Anxiety: 2 Agitation: 2 Paroxysmal Sweats: 1-Minimal Palms Moist Orientation: 0-Oriented Tacttile Disturbances: 0-None Auditory Disturbances: 0-None Visual Disturbances: 0-None Headache: 0-None Present CIWA-Ar Total Score: 7 [facility] Progress Note (SOAP) Subjective: 69 years old male admitted on 11/12/19 for alcohol withdrawal sx management treating with librium detox regimen feeling better today less tremor ambulating on hallway discuss aftercare with staff Objective: 11/15/19 11:12 Vital Signs Temperature 99.7 F H 11/15/19 09:16 Pulse Rate 79 11/15/19 09:16 Respiratory Rate 18 11/15/19 09:16 Blood Pressure 142/74 11/15/19 09:16 O2 Sat by Pulse Oximetry (%) 11/15/19 11:12 Laboratory Last Values WBC 5.5 K/mm3 (4.0-10.0) 11/13/19 08:00 RBC 4.89 M/mm3 (4.00-5.60) 11/13/19 08:00 Hgb 12.7 GM/dL (11.7-16.9) 11/13/19 08:00 Hct 39.7 % (35.4-49) 11/13/19 08:00 MCV 81.2 fl (80-96) 11/13/19 08:00 MCH 25.9 pg (25.7-33.7) 11/13/19 08:00 MCHC 31.9 g/dl (32.0-35.9) L 11/13/19 08:00 RDW 14.6 % (11.9-15.9) 11/13/19 08:00 Plt Count 240 K/MM3 (134-434) D 11/13/19 08:00 MPV 7.9 fl (7.5-11.1) 11/13/19 08:00 Sodium 143 mmol/L (136-145) 11/13/19 08:00 Potassium 4.0 mmol/L (3.5-5.1) 11/13/19 08:00 Chloride 112 mmol/L (98-107) H 11/13/19 08:00 Carbon Dioxide 27 mmol/L (21-32) 11/13/19 08:00 Anion Gap 4 MMOL/L (8-16) L 11/13/19 08:00 BUN 10.1 mg/dL (7-18) 11/13/19 08:00 Creatinine 0.7 mg/dL (0.55-1.3) 11/13/19 08:00 Est GFR (CKD-EPI)AfAm 113.18 11/13/19 08:00 Est GFR (CKD-EPI)NonAf 97.65 11/13/19 08:00 POC Glucometer 212 UNITS (80-120) 11/15/19 05:59 Random Glucose 124 mg/dL (74-106) H 11/13/19 08:00 Calcium 8.8 mg/dL (8.5-10.1) 11/13/19 08:00 Total Bilirubin 0.3 mg/dL (0.2-1) 11/13/19 08:00 AST 27 U/L (15-37) 11/13/19 08:00 ALT 44 U/L (13-61) 11/13/19 08:00 Alkaline Phosphatase 47 U/L (45-117) 11/13/19 08:00 Total Protein 6.5 g/dl (6.4-8.2) 11/13/19 08:00 Albumin 3.5 g/dl (3.4-5.0) 11/13/19 08:00 Urine Color Yellow 11/13/19 07:00 Urine Appearance Clear 11/13/19 07:00 Urine pH 5.5 (5.0-8.0) 11/13/19 07:00 Ur Specific [place] 1.039 (1.010-1.035) H 11/13/19 07:00 Urine Protein Negative (NEGATIVE) 11/13/19 07:00 Urine Glucose (UA) 3+ (NEGATIVE) H 11/13/19 07:00 Urine Ketones Negative (NEGATIVE) 11/13/19 07:00 Urine Blood Negative (NEGATIVE) 11/13/19 07:00 Urine Nitrite Negative (NEGATIVE) 11/13/19 07:00 Urine Bilirubin Negative (NEGATIVE) 11/13/19 07:00 Urine Urobilinogen 0.2 mg/dL (0.2-1.0) 11/13/19 07:00 Ur Leukocyte Esterase Negative (NEGATIVE) 11/13/19 07:00 lab noted resume insulin to 24 units at evening bp elevation increase metoprolol to 25 mg po bid 11/15/19 11:14 Assessment: 11/15/19 11:15 alcohol withdrawal Plan: librium regimen
[2019-11-15] MEDS: METHYL SALICYLATE/MENTHOL OINT 30 GM TUBE TP SCH ×2 (11:37→22:37)
--- NOTE | 2019-11-15 14:48 | PN ---
[facility] CIWA - CIWA Score Nausea/Vomitin-No Nausea/No Vomiting Muscle Tremors: 2 Anxiety: 2 Agitation: 2 Paroxysmal Sweats: 1-Minimal Palms Moist Orientation: 0-Oriented Tacttile Disturbances: 0-None Auditory Disturbances: 0-None Visual Disturbances: 0-None Headache: 0-None Present CIWA-Ar Total Score: 7 S Progress Note (SOAP) Subjective: 69 years old male admitted on 11/12/19 for alcohol withdrawal sx management treating with librium detox regimen feeling better today less tremor ambulating on hallway discuss aftercare with staff Objective: 11/15/19 11:06 Vital Signs Temperature 99.7 F H 11/15/19 09:16 Pulse Rate 79 11/15/19 09:16 Respiratory Rate 18 11/15/19 09:16 Blood Pressure 142/74 11/15/19 09:16 O2 Sat by Pulse Oximetry (%) Laboratory Last Values WBC 5.5 K/mm3 (4.0-10.0) 11/13/19 08:00 RBC 4.89 M/mm3 (4.00-5.60) 11/13/19 08:00 Hgb 12.7 GM/dL (11.7-16.9) 11/13/19 08:00 Hct 39.7 % (35.4-49) 11/13/19 08:00 MCV 81.2 fl (80-96) 11/13/19 08:00 MCH 25.9 pg (25.7-33.7) 11/13/19 08:00 MCHC 31.9 g/dl (32.0-35.9) L 11/13/19 08:00 RDW 14.6 % (11.9-15.9) 11/13/19 08:00 Plt Count 240 K/MM3 (134-434) D 11/13/19 08:00 MPV 7.9 fl (7.5-11.1) 11/13/19 08:00 Sodium 143 mmol/L (136-145) 11/13/19 08:00 Potassium 4.0 mmol/L (3.5-5.1) 11/13/19 08:00 Chloride 112 mmol/L (98-107) H 11/13/19 08:00 Carbon Dioxide 27 mmol/L (21-32) 11/13/19 08:00 Anion Gap 4 MMOL/L (8-16) L 11/13/19 08:00 BUN 10.1 mg/dL (7-18) 11/13/19 08:00 Creatinine 0.7 mg/dL (0.55-1.3) 11/13/19 08:00 Est GFR (CKD-EPI)AfAm 113.18 11/13/19 08:00 Est GFR (CKD-EPI)NonAf 97.65 11/13/19 08:00 POC Glucometer 212 UNITS (80-120) 11/15/19 05:59 Random Glucose 124 mg/dL (74-106) H 11/13/19 08:00 Calcium 8.8 mg/dL (8.5-10.1) 11/13/19 08:00 Total Bilirubin 0.3 mg/dL (0.2-1) 11/13/19 08:00 AST 27 U/L (15-37) 11/13/19 08:00 ALT 44 U/L (13-61) 11/13/19 08:00 Alkaline Phosphatase 47 U/L (45-117) 11/13/19 08:00 Total Protein 6.5 g/dl (6.4-8.2) 11/13/19 08:00 Albumin 3.5 g/dl (3.4-5.0) 11/13/19 08:00 Urine Color Yellow 11/13/19 07:00 Urine Appearance Clear 11/13/19 07:00 Urine pH 5.5 (5.0-8.0) 11/13/19 07:00 Ur Specific [place] 1.039 (1.010-1.035) H 11/13/19 07:00 Urine Protein Negative (NEGATIVE) 11/13/19 07:00 Urine Glucose (UA) 3+ (NEGATIVE) H 11/13/19 07:00 Urine Ketones Negative (NEGATIVE) 11/13/19 07:00 Urine Blood Negative (NEGATIVE) 11/13/19 07:00 Urine Nitrite Negative (NEGATIVE) 11/13/19 07:00 Urine Bilirubin Negative (NEGATIVE) 11/13/19 07:00 Urine Urobilinogen 0.2 mg/dL (0.2-1.0) 11/13/19 07:00 Ur Leukocyte Esterase Negative (NEGATIVE) 11/13/19 07:00 lab noted
[2019-11-15] MEDS ORDERED: METOPROLOL TARTRATE 25 MG TABLET (FP) PO SCH (22:00)
[2019-11-15] MEDS: traZODone HCL 100 MG TABLET (FP) PO SCH (22:35)
[2019-11-15] MEDS: ATORVASTATIN CA 40 MG TABLET (FP) PO SCH (22:36)
[2019-11-15] MEDS: THIAMINE HCL 100 MG TABLET (FP) PO SCH (22:38)
[2019-11-16] MEDS ORDERED: chlordiazePOXIDE HCL 10 MG CAPSULE PO ONE (05:00)
[2019-11-16] MEDS: LIRAGLUTIDE 0.6 MG/0.1 ML PEN.INJCTR SQ SCH (08:39)
[2019-11-16] MEDS: GABAPENTIN 100 MG CAPSULE (FP) PO SCH (08:39)
[2019-11-16] MEDS: metFORMIN HCL 500 MG TABLET (FP) PO SCH (08:39)
[2019-11-16 09:16] VITALS: BP 136/75; PULSE 89; TEMP 97.3
--- NOTE | 2019-11-16 13:48 | DS ---
[facility] Detox Discharge Summary Admission Date: 11/12/19 Discharge Date: 11/16/19 - History Present History: Alcohol Dependence Additional Comments: 69 years old male admitted on 11/12/19 for alcohol withdrawal sx management treated with librium detox regimen patient tolerated well alert oriented x 3 cardiac s1s2 regula rate rhythm ekg indicates premature ventrical complex with septal infarction patient denies chest pain no shortness of breath denies dizziness respiratory clear lungs bilaterally on auscultation extremities full range of motion Pertinent Past History: patient may return to primary care ID provider for follow up - Physical Exam Results Vital Signs: Vital Signs Temperature 97.3 F L 11/16/19 09:15 Pulse Rate 89 11/16/19 09:15 Respiratory Rate 18 11/16/19 09:15 Blood Pressure 136/75 11/16/19 09:15 O2 Sat by Pulse Oximetry (%) Pertinent Admission Physical Exam Findings: alcohol withdrawal Laboratory Last Values WBC 5.5 K/mm3 (4.0-10.0) 11/13/19 08:00 RBC 4.89 M/mm3 (4.00-5.60) 11/13/19 08:00 Hgb 12.7 GM/dL (11.7-16.9) 11/13/19 08:00 Hct 39.7 % (35.4-49) 11/13/19 08:00 MCV 81.2 fl (80-96) 11/13/19 08:00 MCH 25.9 pg (25.7-33.7) 11/13/19 08:00 MCHC 31.9 g/dl (32.0-35.9) L 11/13/19 08:00 RDW 14.6 % (11.9-15.9) 11/13/19 08:00 Plt Count 240 K/MM3 (134-434) D 11/13/19 08:00 MPV 7.9 fl (7.5-11.1) 11/13/19 08:00 Sodium 143 mmol/L (136-145) 11/13/19 08:00 Potassium 4.0 mmol/L (3.5-5.1) 11/13/19 08:00 Chloride 112 mmol/L (98-107) H 11/13/19 08:00 Carbon Dioxide 27 mmol/L (21-32) 11/13/19 08:00 Anion Gap 4 MMOL/L (8-16) L 11/13/19 08:00 BUN 10.1 mg/dL (7-18) 11/13/19 08:00 Creatinine 0.7 mg/dL (0.55-1.3) 11/13/19 08:00 Est GFR (CKD-EPI)AfAm 113.18 11/13/19 08:00 Est GFR (CKD-EPI)NonAf 97.65 11/13/19 08:00 POC Glucometer 273 UNITS (80-120) 11/15/19 21:24 Random Glucose 124 mg/dL (74-106) H 11/13/19 08:00 Calcium 8.8 mg/dL (8.5-10.1) 11/13/19 08:00 Total Bilirubin 0.3 mg/dL (0.2-1) 11/13/19 08:00 AST 27 U/L (15-37) 11/13/19 08:00 ALT 44 U/L (13-61) 11/13/19 08:00 Alkaline Phosphatase 47 U/L (45-117) 11/13/19 08:00 Total Protein 6.5 g/dl (6.4-8.2) 11/13/19 08:00 Albumin 3.5 g/dl (3.4-5.0) 11/13/19 08:00 Urine Color Yellow 11/13/19 07:00 Urine Appearance Clear 11/13/19 07:00 Urine pH 5.5 (5.0-8.0) 11/13/19 07:00 Ur Specific [place] 1.039 (1.010-1.035) H 11/13/19 07:00 Urine Protein Negative (NEGATIVE) 11/13/19 07:00 Urine Glucose (UA) 3+ (NEGATIVE) H 11/13/19 07:00 Urine Ketones Negative (NEGATIVE) 11/13/19 07:00 Urine Blood Negative (NEGATIVE) 11/13/19 07:00 Urine Nitrite Negative (NEGATIVE) 11/13/19 07:00 Urine Bilirubin Negative (NEGATIVE) 11/13/19 07:00 Urine Urobilinogen 0.2 mg/dL (0.2-1.0) 11/13/19 07:00 Ur Leukocyte Esterase Negative (NEGATIVE) 11/13/19 07:00 lab noted Vital Signs Temperature 97.3 F L 11/16/19 09:15 Pulse Rate 89 11/16/19 09:15 Respiratory Rate 18 11/16/19 09:15 Blood Pressure 136/75 11/16/19 09:15 O2 Sat by Pulse Oximetry (%) - Treatment Hospital Course: Detox Protocol Followed, Detoxed Safely, Responded well, Discharged Condition Good, Rehab Referral Accepted Patient has Accepted [facility] Referral [facility] - Medication Discharge Medications: Ambulatory Orders Aspirin [Ecotrin] 81 mg PO DAILY 08/04/19 Insulin Glargine,Hum.rec.anlog [Lantus] 24 unit SQ DAILY 08/04/19 Liraglutide [Victoza -] 1.8 mg SQ DAILY@0700 08/04/19 Metformin HCl [Glucophage] 1,000 mg PO BID 08/04/19 Atorvastatin Ca [Lipitor] 40 mg PO HS 11/12/19 Empagliflozin [Jardiance] 100 mg PO DAILY 11/12/19 Gabapentin 800 mg PO TID 11/12/19 Losartan/Hydrochlorothiazide [Losartan-Hctz 100-12.5 mg Tab] 1 each PO DAILY Methocarbamol 750 mg PO PRN 11/12/19 Metoprolol Tartrate 25 mg PO DAILY 11/12/19 Thiamine HCl [B-1] 100 mg PO DAILY 11/12/19 traZODone HCL [Trazodone HCl] 100 mg PO HS 11/12/19 - Diagnosis (1) Alcohol dependence with uncomplicated withdrawal Status: Acute (2) DM2 (diabetes mellitus, type 2) Status: Chronic Qualifiers: Diabetes mellitus group home insulin use: unspecified group home insulin use status Diabetes mellitus complication status: without complication Qualified Code(s): E11.9 - Type 2 diabetes mellitus without complications (3) HLD (hyperlipidemia) Status: Chronic Qualifiers: Hyperlipidemia type: unspecified Qualified Code(s): E78.5 - Hyperlipidemia , unspecified (4) HTN (hypertension) Status: Chronic Qualifiers: Hypertension type: essential hypertension Qualified Code(s): I10 - Essential (primary) hypertension (5) History of hepatitis C Status: Chronic (6) History of positive PPD Status: Resolved (7) Nicotine dependence Status: Acute Qualifiers: Nicotine product type: cigarettes Substance use status: in withdrawal Qualified Code(s): F17.213 - Nicotine dependence, cigarettes, with withdrawal - AMA Did Patient Leave Against Medical Advice: No CIWA Score - CIWA Score Nausea/Vomitin-No Nausea/No Vomiting Muscle Tremors: 1-None Visible, but [place] Anxiety: 1-Mildly Anxious Agitation: 1-Slight > Activity Paroxysmal Sweats: No Perspiration Orientation: 0-Oriented Tacttile Disturbances: 0-None Auditory Disturbances: 0-None Visual Disturbances: 0-None Headache: 0-None Present CIWA-Ar Total Score: 3
== END 2019-11-16 08:59 | disposition home or self-care (01) | DRG 897 ==
LOC: YASAS 11:35 → Y3N 16:04
PROVIDERS: ADMIT Allergy & Immunology; ATTEND Allergy & Immunology
PROC: HZ2ZZZZ Detoxification Services for Substance Abuse Treatment (ICD-10-PCS; principal; 2019-11-12)
DX: F10.230 Alcohol dependence with withdrawal, uncomplicated (principal); F19.282 Other psychoactive substance dependence with psychoactive substance-induced sleep disorder; F11.90 Opioid use, unspecified, uncomplicated; F17.213 Nicotine dependence, cigarettes, with withdrawal; I10 Essential (primary) hypertension; E78.5 Hyperlipidemia, unspecified; E11.9 Type 2 diabetes mellitus without complications; R76.11 Nonspecific reaction to tuberculin skin test without active tuberculosis; G47.00 Insomnia, unspecified; Z86.19 Personal history of other infectious and parasitic diseases; Z91.14 Patient's other noncompliance with medication regimen; Z56.0 Unemployment, unspecified; Z79.4 Long term (current) use of insulin; Z79.84 Long term (current) use of oral hypoglycemic drugs
CPT/HCPCS: 36415; 71046-TC-FY; 80053; 81003; 82962; 85027; 93005; 93010

== ENCOUNTER 2020-06-01 14:32 | Inpatient (IN) | payer OTHER ==
--- NOTE | 2020-06-01 18:42 | BHS.RME ---
Substance Use & Tx History - Substance Use History Heroin Substance amount: 10 bags of heroin Frequency of use: Daily Substance route: Inhalation (ex: sniffing or snorting) Date of Last Use: 05/31/20 Alcohol Substance amount: 1pint of vodka/6 packs of 25 ozs of beer Frequency of use: Daily Substance route: Oral Date of Last Use: 05/31/20 - Last Treatment Date of last treatment: [facility] 11/12/19 to 11/16/19 Where was last treatment: Detox Physical/Psych/Mental Status - Behavior Eye Contact: Normal - Cooperativeness Cooperativeness: Cooperative - Thinking Thought Processes: Logical Thought content: Future oriented - Physical Health Problems Is patient presently having any pain?: No Does patient presently have any injuries (include location): No Does patient currently have a fever: No COWS - Scale Resting Pulse: 0= [place] 80 or Below Sweatin= No chills or Flushing Restless Observation: 1= Difficult to Sit Still Pupil Size: 1= Pupils >than Normal Bone or Joint Aches: 2= Severe Diffuse Aches Runny Nose/ Eye Tearin= Runny Nose/Eyes GI Upset > 30mins: 2= Nausea/Diarrhea Tremor Observation: 2= Slight Tremor Visible Yawning Observation: 2= >3x During Session Anxiety or Irritability: 2=Irritable/Anxious Goose Flesh Skin: 0=Smooth Skin COWS Score: 14 CIWA Nausea/Vomitin Muscle Tremors: 3 Anxiety: 3 Agitation: 3 Paroxysmal Sweats: 1-Minimal Palms Moist Orientation: 0-Oriented Tacttile Disturbances: 1-Very Mild Itch/Numbness Auditory Disturbances: 0-None Visual Disturbances: 1-Very Mild Sensitivity Headache: 2-Mild CIWA-Ar Total Score: 16
--- NOTE | 2020-06-01 18:50 | HP ---
COWS - Scale Resting Pulse: 0= [place] 80 or Below Sweatin= No chills or Flushing Restless Observation: 1= Difficult to Sit Still Pupil Size: 1= Pupils >than Normal Bone or Joint Aches: 2= Severe Diffuse Aches Runny Nose/ Eye Tearin= Runny Nose/Eyes GI Upset > 30mins: 2= Nausea/Diarrhea Tremor Observation: 2= Slight Tremor Visible Yawning Observation: 2= >3x During Session Anxiety or Irritability: 2=Irritable/Anxious Goose Flesh Skin: 0=Smooth Skin COWS Score: 14 CIWA Score Nausea/Vomitin Muscle Tremors: 3 Anxiety: 3 Agitation: 3 Paroxysmal Sweats: 1-Minimal Palms Moist Orientation: 0-Oriented Tacttile Disturbances: 1-Very Mild Itch/Numbness Auditory Disturbances: 0-None Visual Disturbances: 1-Very Mild Sensitivity Headache: 2-Mild CIWA-Ar Total Score: 16 - Admission Criteria OASAS Guidelines: Admission for Medically Managed Detox: Requires at least one of the followin. CIWA greater than 12 2. Seizures within the past 24 hours 3. Delirium tremens within the past 24 hours 4. Hallucinations within the past 24 hours 5. Acute intervention needed for co occurring medical disorder 6. Acute intervention needed for co occurring psychiatric disorder 7. Severe withdrawal that cannot be handled at a lower level of care (continued vomiting, continued diarrhea, abnormal vital signs) requiring intravenous medication and/or fluids 8. Admitting History and Physical - Admission Chief Complaint: i need help to stop using drug and alcohol History of Present Illness: this 69 years old male with heroin and alcohol dependence seeking detox, History Source: Patient - Past Medical History Cardiovascular: Yes: HTN, Hyperlipdemia Psych: Yes: Other (Insomnia) Endocrine: Yes: Diabetes Mellitus - Past Surgical History Past Surgical History: Yes: None - Smoking History Smoking history: Current every day smoker Have you smoked in the past 12 months: Yes Aproximately how many cigarettes per day: 10 - Alcohol/Substance Use Hx Alcohol Use: Yes Number of Drinks Daily: 12 History of Substance Use: reports: Heroin Date of Last Use: 05/31/20 - Social History Usual Living Arrangement: Yes: Alone Do you think of yourself as: Straight/Heterosexual ADL: Independent 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, 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 History of Recent Travel: No Other 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,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,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 Admission ROS [facility] Chief Complaint: i need help to stop using heroin,alcohol Allergies/Adverse Reactions: Allergies Allergy/AdvReac Type Severity Reaction Status Date / Time No Known Allergies Allergy Verified 11/12/19 12:05 History of Present Illness: this 69 years old male with heroin and alcohol dependence seeking detox,withdrawal symptom,last detox 11/12/19 to 11/16/19 history of htn,dm,hypercholesterolemia,nicotine dependence longest sobriety 1 year like to go to rehab plan for rehab after detox Exam Limitations: No Limitations - Ebola screening Have you traveled outside of the country in the last 21 days: No Have you had contact with anyone from an Ebola affected area: No Have you been sick,other than usual withdrawal symptoms: No Do you have a fever: No - Review of Systems Constitutional: Loss of Appetite, Malaise, Night Sweats, Changes in sleep, Weakness EENT: reports: Tearing, Nose Congestion Respiratory: reports: No Symptoms reported Cardiac: reports: No Symptoms Reported GI: reports: Nausea, Poor Appetite, Abdominal cramping : reports: No Symptoms Reported Musculoskeletal: reports: Back Pain, Muscle Pain Integumentary: reports: Dryness Neuro: reports: Tremors Endocrine: reports: No Symptoms Reported Hematology: reports: No Symptoms Reported Psychiatric: reports: No Sypmtoms Reported, Judgement Intact, Mood/Affect Appropiate, Orientated x3 Other Systems: Reviewed and Negative Patient History - Patient Medical History Hx Anemia: No Hx Asthma: No Hx Chronic Obstructive Pulmonary Disease (COPD): Yes Hx Cancer: No Hx Cardiac Disorders: No Hx Congestive Heart Failure: No Hx Hypertension: Yes Hx Hypercholesterolemia: Yes Hx Pacemaker: No HX Cerebrovascular Accident: No Hx Seizures: No Hx Dementia: No Hx Diabetes: Yes (Non compliant with meds BGM 262mg/dl) Hx Gastrointestinal Disorders: No Hx Liver Disease: Yes (HCV TREATED) Hx Genitourinary Disorders: No Hx Sexually Transmitted Disorders: No Hx Renal Disease (ESRD): No Hx Thyroid Disease: No Hx Human Immunodeficiency Virus (HIV): No Hx Hepatitis C: No Hx Depression: No Hx Suicide Attempt: No Hx Bipolar Disorder: No Hx Schizophrenia: No - Patient Surgical History Past Surgical History: No Hx Neurologic Surgery: No Hx Cataract Extraction: No Hx Cardiac Surgery: No Hx Lung Surgery: No Hx Breast Surgery: No Hx Breast Biopsy: No Hx Abdominal Surgery: No Hx Appendectomy: No Hx Cholecystectomy: No Hx Genitourinary Surgery: No Hx Section: No Hx Orthopedic Surgery: No Anesthesia Reaction: No - PPD History Documented Results: Positive w/proof Date: 11/13/19 Results: CXR (-) PPD to be Administered?: No - Smoking Cessation Smoking history: Current every day smoker Have you smoked in the past 12 months: Yes Aproximately how many cigarettes per day: 10 Cigars Per Day: 0 Hx Chewing Tobacco Use: No Initiated information on smoking cessation: Yes 'Breaking Loose' booklet given: 06/01/20 - Substance & Tx. History Hx Alcohol Use: Yes Hx Substance Use: Yes Substance Use Type: Alcohol, Heroin Hx Substance Use Treatment: Yes ([facility] 11/12/19 to 11/16/19) - Substances abused Heroin Substance route: Inhalation Frequency: Daily Amount used: 10 bags Age of first use: 19 Date of last use: 05/31/20 Alcohol Substance route: Oral Frequency: Daily Amount used: 1pint of vodka/6packs of 25 ozs of beer Age of first use: 19 Date of last use: 05/31/20 Admission Physical Exam [facility] - Vital Signs Vital Signs: t 96.7,p78,r18,bp 101/64,pulse ox 100 - Physical General Appearance: Yes: Moderate Distress, Tremorous, Irritable, Anxious HEENTM: Yes: Normal ENT Inspection, SAM, Pharynx Normal Respiratory: Yes: Within Normal Limits, Lungs Clear, Normal Breath Sounds Neck: Yes: Within Normal Limits, Supple, Trachea in good position Breast: Yes: Within Normal Limits Cardiology: Yes: Within Normal Limits, Regular Rhythm, Regular Rate, S1, S2 Abdominal: Yes: Within Normal Limits, Normal Bowel Sounds, Non Tender, Flat, Soft Genitourinary: Yes: Within Normal Limits Back: Yes: Muscle Spasm Musculoskeletal: Yes: Back pain, Muscle Pain Extremities: Yes: Tremors 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 NML intact, Fully Oriented, Alert, Motor Strength 5/5 Integumentary: Yes: Dry Lymphatic: Yes: Within Normal Limits - Diagnostic (1) Opioid dependence with withdrawal Current Visit: No Status: Acute (2) Alcohol dependence with uncomplicated withdrawal Current Visit: No Status: Acute (3) Nicotine dependence Current Visit: No Status: Acute Qualifiers: Nicotine product type: cigarettes Substance use status: in withdrawal Qualified Code(s): F17.213 - Nicotine dependence, cigarettes, with withdrawal (4) DM2 (diabetes mellitus, type 2) Current Visit: No Status: Chronic Qualifiers: Diabetes mellitus residential insulin use: unspecified residential insulin use status Diabetes mellitus complication status: without complication Qualified Code(s): E11.9 - Type 2 diabetes mellitus without complications (5) HLD (hyperlipidemia) Current Visit: No Status: Chronic Qualifiers: Hyperlipidemia type: unspecified Qualified Code(s): E78.5 - Hyperlipidemia, unspecified (6) HTN (hypertension) Current Visit: No Status: Chronic Qualifiers: Hypertension type: essential hypertension Qualified Code(s): I10 - Essential (primary) hypertension (7) History of hepatitis C Current Visit: No Status: Chronic (8) History of positive PPD Current Visit: No Status: Resolved Cleared for Admission S - Detox or Rehab [facility] Level of Care: Medically Managed Detox Regimen/Protocol: Methadone/Librium Breathalyzer - Breathalyzer Breathalyzer: 0 Urine Drug Screen - Test Device Lot number: [id number] Expiration date: 06/14/21 - Control Is test valid?: Yes - Results Drug screen NEGATIVE: Yes Urine drug screen results: MOP-Opiates Inpatient Rehab Admission - Rehab Decision to Admit Inpatient rehab admission?: No
[2020-06-01] MEDS ORDERED: IBUPROFEN 400 MG TABLET (FP) PO PRN (19:09)
[2020-06-01] MEDS ORDERED: ACETAMINOPHEN 325 MG TABLET (FP) PO PRN ×2 (19:09)
[2020-06-01] MEDS ORDERED: chlordiazePOXIDE HCL 25 MG CAPSULE PO PRN (19:09)
[2020-06-01] MEDS ORDERED: METHOCARBAMOL 500 MG TABLET PO PRN (19:09)
[2020-06-01] MEDS ORDERED: MENTHOL/PHENOL 1 EACH UD MM PRN (19:09)
[2020-06-01] MEDS ORDERED: MAGNESIUM CITRATE 300 ML BOTTLE PO PRN (19:09)
[2020-06-01] MEDS ORDERED: MAGNESIUM HYDROX 2400MG/30ML ORAL SUSPENSION 30 ML CUP PO PRN (19:09)
[2020-06-01] MEDS ORDERED: NICOTINE POLACRILEX 2 MG GUM BUC PRN (19:09)
[2020-06-01] MEDS ORDERED: cloNIDine HCL 0.1 MG TABLET PO PRN (19:09)
[2020-06-01] MEDS ORDERED: MAG HYDROX/AL HYDROX/SIMETH 30 ML UNIT-DOSE CUP PO PRN (19:09)
[2020-06-01] MEDS ORDERED: BISMUTH SUBSALICYLATE 524 MG/30 ML UD PO PRN (19:09)
[2020-06-01 19:22] VITALS: BMI 23.1
[2020-06-01] MEDS ORDERED: ONDANSETRON *ODT* 4 MG TABLET SL ONE (19:30)
[2020-06-01] MEDS ORDERED: METHADONE HCL 10 MG TABLET (FOR DETOX USE ONLY) PO ONE (19:30)
[2020-06-01] MEDS: METOPROLOL TARTRATE 25 MG TABLET (FP) PO SCH (22:16)
[2020-06-01] MEDS: ATORVASTATIN CA 40 MG TABLET (FP) PO SCH (22:17)
[2020-06-01] MEDS: THIAMINE HCL 100 MG TABLET (FP) PO SCH (22:17)
[2020-06-01] MEDS: hydrOXYzine PAMOATE 25 MG CAPSULE (FP) PO SCH (22:17)
[2020-06-01] MEDS: chlordiazePOXIDE HCL 25 MG CAPSULE PO SCH (22:17)
[2020-06-01] MEDS: METHOCARBAMOL 500 MG TABLET PO SCH (22:17)
[2020-06-01] MEDS: MELATONIN 5 MG TABLETS PO SCH (22:18)
[2020-06-01] MEDS: INSULIN SLIDING SCALE (NOVOLOG) 1 VIAL SQ SCH (22:18)
[2020-06-02] MEDS: hydrOXYzine PAMOATE 25 MG CAPSULE (FP) PO SCH ×5 (05:46→22:00)
[2020-06-02] MEDS: chlordiazePOXIDE HCL 25 MG CAPSULE PO SCH ×4 (05:46→22:02)
[2020-06-02] MEDS: INSULIN SLIDING SCALE (NOVOLOG) 1 VIAL SQ SCH ×4 (06:13→22:06)
[2020-06-02] MEDS: metFORMIN HCL 500 MG TABLET (FP) PO SCH ×2 (06:13→17:22)
[2020-06-02] MEDS ORDERED: METHADONE HCL 5 MG TABLET (FOR DETOX USE ONLY) ONE (09:17)
[2020-06-02] MEDS ORDERED: METHADONE HCL 10 MG TABLET (FOR DETOX USE ONLY) ONE (09:17)
[2020-06-02] MEDS: HYDROCHLOROTHIAZIDE 25 MG TABLET (FP) PO SCH (09:39)
[2020-06-02] MEDS: METOPROLOL TARTRATE 25 MG TABLET (FP) PO SCH ×2 (09:39→22:01)
[2020-06-02] MEDS: ASPIRIN 81 MG CHEWABLE TABLETS PO SCH (09:39)
[2020-06-02] MEDS: METHOCARBAMOL 500 MG TABLET PO SCH ×4 (09:40→22:03)
[2020-06-02] MEDS: PRENATAL VITAMINS W/ FOLIC ACID TABLET (FP) PO SCH (09:40)
[2020-06-02] MEDS: NICOTINE 21 MG/24 HOURS TOPICAL PATCH TD SCH (09:41)
[2020-06-02] MEDS ORDERED: METHADONE (DETOX) 20 MG, METHADONE (DETOX) 5 MG PO ONE (10:00)
[2020-06-02] MEDS ORDERED: INSULIN (LEVEMIR) 100 UNITS/ML UNITS SQ SCH (10:00)
--- NOTE | 2020-06-02 10:04 | PN ---
S CIWA - CIWA Score Nausea/Vomitin Muscle Tremors: 3 Anxiety: 1-Mildly Anxious Agitation: 1-Slight > Activity Paroxysmal Sweats: No Perspiration Orientation: 0-Oriented Tacttile Disturbances: 0-None Auditory Disturbances: 0-None Visual Disturbances: 1-Very Mild Sensitivity Headache: 3-Moderate CIWA-Ar Total Score: 11 S COWS - Scale Resting Pulse: 0= [place] 80 or Below Sweatin= No chills or Flushing Restless Observation: 0= Sits Still Pupil Size: 1= Pupils >than Normal Bone or Joint Aches: 1= Mild Discomfort Runny Nose/ Eye Tearin= None GI Upset > 30mins: 2= Nausea/Diarrhea Tremor Observation of Outstretched Hands: 2= Slight Tremor Visible Yawning Observation: 0= None Anxiety or Irritability: 2=Irritable/Anxious Goose Flesh Skin: 3=Piloerection COWS Score: 11 [facility] Progress Note (SOAP) Subjective: 69 years old male admitted on 06/01/20 for alcohol and opiate withdrawal sx management treating with librium and methadone detox regiments requests glucerna tid change glucerna to tid feeling tired resting in bed limited conversation with staff prefers to stay in bed today Objective: 06/02/20 10:04 Vital Signs - 24 hr 06/01/20 06/01/20 06/02/20 19:14 20:17 05:42 Temperature 97.7 F 97.3 F L 97.1 F L Pulse Rate 85 80 53 L Respiratory 18 18 16 Rate Blood Pressure 101/64 101/69 136/69 O2 Sat by Pulse 100 99 Oximetry (%) 06/02/20 08:32 Temperature 96.8 F L Pulse Rate 66 Respiratory 18 Rate Blood Pressure 134/69 O2 Sat by Pulse Oximetry (%) Laboratory Tests 06/01/20 06/02/20 21:48 05:47 POC Glucometer 195 106 06/02/20 10:05 lab pending Assessment: 06/02/20 10:05 alcohol and opiate withdrawal Plan: librium and methadone regiments
[2020-06-02 12:07] LABS: HEMATOCRIT 35.8 % (35.4-49); HEMOGLOBIN 11.7 GM/dL (11.7-16.9); MCH 26.8 pg (25.7-33.7); MCHC 32.6 g/dl (32.0-35.9); MEAN CELL VOLUME 82.3 fl (80-96); MEAN PLT VOLUME 8.3 fl (7.5-11.1); PLATELET COUNT 171 K/MM3 (134-434); RBC 4.35 M/mm3 (4.00-5.60); RDW 14.1 % (11.9-15.9); WHITE BLOOD COUNT 4.6 K/mm3 (4.0-10.0)
[2020-06-02 12:15] LABS: ALBUMIN 3.4 g/dl (3.4-5.0); BILIRUBIN,TOTAL 0.4 mg/dL (0.2-1); BLOOD UREA NITROGEN 16.2 mg/dL (7-18); CREATININE 0.8 mg/dL (0.55-1.3); POTASSIUM 4.4 mmol/L (3.5-5.1); TOT PROT 6.5 g/dl (6.4-8.2)
[2020-06-02] MEDS ORDERED: TRIMETHOBENZAMIDE HCL 200MG/2ML INJ IM ONE (14:16)
[2020-06-02] MEDS ORDERED: ONDANSETRON *ODT* 4 MG TABLET SL ONE (14:16)
[2020-06-02] MEDS: FAMOTIDINE 20 MG TABLET PO SCH ×2 (14:37→22:01)
--- NOTE | 2020-06-02 18:37 | PN ---
[facility] Progress Note Note: patient would like levimir 25 units hs instead of daily in the day,ordered,close monitoing of bgm achs
[2020-06-02] MEDS: THIAMINE HCL 100 MG TABLET (FP) PO SCH (22:01)
[2020-06-02] MEDS: ATORVASTATIN CA 40 MG TABLET (FP) PO SCH (22:01)
[2020-06-02] MEDS: MELATONIN 5 MG TABLETS PO SCH (22:02)
[2020-06-02] MEDS: INSULIN (LEVEMIR) 100 UNITS/ML UNITS SQ SCH (22:05)
[2020-06-03] MEDS ORDERED: MASKS NR ONE (06:21)
[2020-06-03] MEDS: metFORMIN HCL 500 MG TABLET (FP) PO SCH ×2 (06:24→17:11)
[2020-06-03] MEDS: hydrOXYzine PAMOATE 25 MG CAPSULE (FP) PO SCH ×4 (06:24→22:29)
[2020-06-03] MEDS: chlordiazePOXIDE HCL 25 MG CAPSULE PO SCH ×4 (06:24→22:28)
[2020-06-03] MEDS: INSULIN SLIDING SCALE (NOVOLOG) 1 VIAL SQ SCH ×4 (07:15→22:30)
[2020-06-03] MEDS ORDERED: ONDANSETRON *ODT* 4 MG TABLET SL ONE (09:15)
[2020-06-03] MEDS ORDERED: TRIMETHOBENZAMIDE HCL 200MG/2ML INJ IM ONE ×2 (09:30→19:15)
[2020-06-03] MEDS ORDERED: METHADONE HCL 10 MG TABLET (FOR DETOX USE ONLY) PO ONE (10:00)
[2020-06-03] MEDS: ASPIRIN 81 MG CHEWABLE TABLETS PO SCH (10:29)
[2020-06-03] MEDS: PRENATAL VITAMINS W/ FOLIC ACID TABLET (FP) PO SCH (10:29)
[2020-06-03] MEDS: HYDROCHLOROTHIAZIDE 25 MG TABLET (FP) PO SCH ×2 (10:29→17:11)
[2020-06-03] MEDS: NICOTINE 21 MG/24 HOURS TOPICAL PATCH TD SCH (10:29)
[2020-06-03] MEDS: METHOCARBAMOL 500 MG TABLET PO SCH ×4 (10:29→22:27)
[2020-06-03] MEDS: FAMOTIDINE 20 MG TABLET PO SCH ×2 (10:30→22:26)
[2020-06-03] MEDS: METOPROLOL TARTRATE 25 MG TABLET (FP) PO SCH ×3 (10:34→22:26)
--- NOTE | 2020-06-03 13:18 | PN ---
[facility] CIWA - CIWA Score Nausea/Vomitin Muscle Tremors: 2 Anxiety: 1-Mildly Anxious Agitation: 2 Paroxysmal Sweats: No Perspiration Orientation: 0-Oriented Tacttile Disturbances: 0-None Auditory Disturbances: 0-None Visual Disturbances: 0-None Headache: 0-None Present CIWA-Ar Total Score: 8 S COWS - Scale Resting Pulse: 0= [place] 80 or Below Sweatin= Chills/Flushing Restless Observation: 0= Sits Still Pupil Size: 1= Pupils >than Normal Bone or Joint Aches: 0= None Runny Nose/ Eye Tearin= None GI Upset > 30mins: 3= Vomiting/Diarrhea Tremor Observation of Outstretched Hands: 2= Slight Tremor Visible Yawning Observation: 0= None Anxiety or Irritability: 1=Feels Anxious/Irritable Goose Flesh Skin: 0=Smooth Skin COWS Score: 8 [facility] Progress Note (SOAP) Subjective: 69 years old male admitted on 06/01/20 for alcohol and opiate withdrawal sx management treating with librium and methadone detox regiment vomited x 1 after breakfast tigan 200mg IM x 1 zofran 8 mg sl x 1 diarrhea x 1 imodium 4 mg po x 1 bentyl 20 mg po x 1 Objective: 06/03/20 13:21 Vital Signs - 24 hr 06/02/20 06/02/20 06/03/20 16:37 20:32 06:53 Temperature 98.0 F 97.3 F L 97.8 F Pulse Rate 68 68 63 Respiratory 18 18 18 Rate Blood Pressure 119/62 127/68 125/61 O2 Sat by Pulse 100 100 Oximetry (%) 06/03/20 08:28 Temperature 98.0 F Pulse Rate 69 Respiratory 18 Rate Blood Pressure 146/73 O2 Sat by Pulse Oximetry (%) Laboratory Tests 06/01/20 06/02/20 06/02/20 21:48 05:47 07:25 WBC RBC Hgb Hct MCV MCH MCHC RDW Plt Count MPV Sodium Potassium Chloride Carbon Dioxide Anion Gap BUN Creatinine Est GFR (CKD-EPI)AfAm Est GFR (CKD-EPI)NonAf POC Glucometer 195 106 Random Glucose Calcium Total Bilirubin AST ALT Alkaline Phosphatase Total Protein Albumin Syphilis Serology Non-reactive 06/02/20 06/02/20 06/02/20 07:25 07:25 11:36 WBC 4.6 RBC 4.35 Hgb 11.7 Hct 35.8 MCV 82.3 MCH 26.8 MCHC 32.6 RDW 14.1 Plt Count 171 D MPV 8.3 Sodium 142 Potassium 4.4 Chloride 109 H Carbon Dioxide 26 Anion Gap 7 L BUN 16.2 Creatinine 0.8 Est GFR (CKD-EPI)AfAm 107.13 Est GFR (CKD-EPI)NonAf 92.44 POC Glucometer 117 Random Glucose 152 H Calcium 9.0 Total Bilirubin 0.4 AST 46 H ALT 59 Alkaline Phosphatase 46 Total Protein 6.5 Albumin 3.4 Syphilis Serology 06/02/20 06/02/20 06/03/20 16:25 20:20 06:24 WBC RBC Hgb Hct MCV MCH MCHC RDW Plt Count MPV Sodium Potassium Chloride Carbon Dioxide Anion Gap BUN Creatinine Est GFR (CKD-EPI)AfAm Est GFR (CKD-EPI)NonAf POC Glucometer 140 123 128 Random Glucose Calcium Total Bilirubin AST ALT Alkaline Phosphatase Total Protein Albumin Syphilis Serology lab noted Assessment: 06/03/20 13:23 alcohol and opiate withdrawal Plan: librium and methadone regiment
[2020-06-03] MEDS ORDERED: DICYCLOMINE HCL 20 MG TABLET PO ONE (13:30)
[2020-06-03] MEDS ORDERED: LOPERAMIDE HCL 2 MG CAPSULE PO ONE (13:30)
[2020-06-03] MEDS ORDERED: DICYCLOMINE HCL 10 MG CAPSULE PO ONE (14:15)
[2020-06-03] MEDS: ATORVASTATIN CA 40 MG TABLET (FP) PO SCH (22:25)
[2020-06-03] MEDS: MELATONIN 5 MG TABLETS PO SCH (22:26)
[2020-06-03] MEDS: THIAMINE HCL 100 MG TABLET (FP) PO SCH (22:27)
[2020-06-03] MEDS: INSULIN (LEVEMIR) 100 UNITS/ML UNITS SQ SCH (22:29)
[2020-06-04] MEDS ORDERED: chlordiazePOXIDE HCL 10 MG CAPSULE PO PRN
[2020-06-04] MEDS: chlordiazePOXIDE HCL 10 MG CAPSULE PO SCH ×4 (05:47→22:29)
[2020-06-04] MEDS: hydrOXYzine PAMOATE 25 MG CAPSULE (FP) PO SCH ×4 (05:47→22:31)
[2020-06-04] MEDS ORDERED: INSULIN SLIDING SCALE (NOVOLOG) 1 VIAL SQ ONE ×2 (06:37→06:41)
[2020-06-04] MEDS: INSULIN SLIDING SCALE (NOVOLOG) 1 VIAL SQ SCH ×4 (06:39→22:35)
[2020-06-04] MEDS: metFORMIN HCL 500 MG TABLET (FP) PO SCH ×2 (06:41→17:44)
[2020-06-04] MEDS ORDERED: METHADONE HCL 10 MG TABLET (FOR DETOX USE ONLY) ONE (08:59)
[2020-06-04] MEDS ORDERED: METHADONE HCL 5 MG TABLET (FOR DETOX USE ONLY) ONE (09:00)
[2020-06-04] MEDS ORDERED: METHADONE (DETOX) 10 MG, METHADONE (DETOX) 5 MG PO ONE (10:00)
[2020-06-04] MEDS: METHOCARBAMOL 500 MG TABLET PO SCH ×4 (10:30→22:29)
[2020-06-04] MEDS: METOPROLOL TARTRATE 25 MG TABLET (FP) PO SCH ×2 (10:30→22:30)
[2020-06-04] MEDS: ASPIRIN 81 MG CHEWABLE TABLETS PO SCH (10:30)
[2020-06-04] MEDS: HYDROCHLOROTHIAZIDE 25 MG TABLET (FP) PO SCH (10:31)
[2020-06-04] MEDS: FAMOTIDINE 20 MG TABLET PO SCH ×2 (10:32→22:29)
[2020-06-04] MEDS: PRENATAL VITAMINS W/ FOLIC ACID TABLET (FP) PO SCH (10:33)
[2020-06-04] MEDS: NICOTINE 21 MG/24 HOURS TOPICAL PATCH TD SCH (10:33)
--- NOTE | 2020-06-04 10:41 | PN ---
S CIWA - CIWA Score Nausea/Vomitin-No Nausea/No Vomiting Muscle Tremors: 1-None Visible, but [place] Anxiety: 1-Mildly Anxious Agitation: 0-Normal Activity Paroxysmal Sweats: No Perspiration Orientation: 0-Oriented Tacttile Disturbances: 1-Very Mild Itch/Numbness Auditory Disturbances: 0-None Visual Disturbances: 2-Mild Sensitivity Headache: 0-None Present CIWA-Ar Total Score: 5 BHS COWS - Scale Resting Pulse: 1= SD 81-100 Sweatin= No chills or Flushing Restless Observation: 0= Sits Still Pupil Size: 1= Pupils >than Normal Bone or Joint Aches: 1= Mild Discomfort Runny Nose/ Eye Tearin= None GI Upset > 30mins: 0= None Tremor Observation of Outstretched Hands: 1= Tremor [place], Not Seen Yawning Observation: 0= None Anxiety or Irritability: 1=Feels Anxious/Irritable Goose Flesh Skin: 0=Smooth Skin COWS Score: 5 S Progress Note (SOAP) Subjective: 69 years old male admitted on 06/01/20 for alcohol and opiate withdrawal sx management treating with librium and methadone detox regiments feeling better today no vomiting no diarrhea ate breakfast tolerated food and glucerna well met with counselor and mr alvarenga for aftercare referral due to medicare insurance restriction that [facility] is appropriated medical underwriter will consult [facility] availability with business continuity coordinator Objective: 06/04/20 10:43 Vital Signs - 24 hr 06/03/20 06/03/20 06/03/20 12:37 16:35 20:31 Temperature 97.3 F L 97.7 F 96.8 F L Pulse Rate 66 79 73 Respiratory 18 16 18 Rate Blood Pressure 138/71 124/65 117/62 O2 Sat by Pulse 98 99 Oximetry (%) 06/04/20 06/04/20 06:26 09:13 Temperature 98.0 F 97.3 F L Pulse Rate 73 86 Respiratory 18 18 Rate Blood Pressure 133/66 115/58 L O2 Sat by Pulse 97 97 Oximetry (%) Laboratory Tests 06/01/20 06/01/20 06/02/20 21:48 23:40 05:47 WBC RBC Hgb Hct MCV MCH MCHC RDW Plt Count MPV Sodium Potassium Chloride Carbon Dioxide Anion Gap BUN Creatinine Est GFR (CKD-EPI)AfAm Est GFR (CKD-EPI)NonAf POC Glucometer 195 106 Random Glucose Calcium Total Bilirubin AST ALT Alkaline Phosphatase Total Protein Albumin Syphilis Serology COVID-19 ([facility]) Not detected 06/02/20 06/02/20 06/02/20 07:25 07:25 07:25 WBC 4.6 RBC 4.35 Hgb 11.7 Hct 35.8 MCV 82.3 MCH 26.8 MCHC 32.6 RDW 14.1 Plt Count 171 D MPV 8.3 Sodium 142 Potassium 4.4 Chloride 109 H Carbon Dioxide 26 Anion Gap 7 L BUN 16.2 Creatinine 0.8 Est GFR (CKD-EPI)AfAm 107.13 Est GFR (CKD-EPI)NonAf 92.44 POC Glucometer Random Glucose 152 H Calcium 9.0 Total Bilirubin 0.4 AST 46 H ALT 59 Alkaline Phosphatase 46 Total Protein 6.5 Albumin 3.4 Syphilis Serology Non-reactive COVID-19 ([facility]) 06/02/20 06/02/20 06/02/20 11:36 16:25 20:20 WBC RBC Hgb Hct MCV MCH MCHC RDW Plt Count MPV Sodium Potassium Chloride Carbon Dioxide Anion Gap BUN Creatinine Est GFR (CKD-EPI)AfAm Est GFR (CKD-EPI)NonAf POC Glucometer 117 140 123 Random Glucose Calcium Total Bilirubin AST ALT Alkaline Phosphatase Total Protein Albumin Syphilis Serology COVID-19 ([facility]) 06/03/20 06/03/20 06/03/20 06:24 16:45 20:59 WBC RBC Hgb Hct MCV MCH MCHC RDW Plt Count MPV Sodium Potassium Chloride Carbon Dioxide Anion Gap BUN Creatinine Est GFR (CKD-EPI)AfAm Est GFR (CKD-EPI)NonAf POC Glucometer 128 238 221 Random Glucose Calcium Total Bilirubin AST ALT Alkaline Phosphatase Total Protein Albumin Syphilis Serology COVID-19 ([facility]) 06/04/20 05:47 WBC RBC Hgb Hct MCV MCH MCHC RDW Plt Count MPV Sodium Potassium Chloride Carbon Dioxide Anion Gap BUN Creatinine Est GFR (CKD-EPI)AfAm Est GFR (CKD-EPI)NonAf POC Glucometer 211 Random Glucose Calcium Total Bilirubin AST ALT Alkaline Phosphatase Total Protein Albumin Syphilis Serology COVID-19 ([facility]) lab noted long history of diabetes with glucose elevation Assessment: 06/04/20 10:43 alcohol and opiate withdrawal Plan: librium and methadone regiment
[2020-06-04] MEDS: THIAMINE HCL 100 MG TABLET (FP) PO SCH (22:29)
[2020-06-04] MEDS: ATORVASTATIN CA 40 MG TABLET (FP) PO SCH (22:29)
[2020-06-04] MEDS: MELATONIN 5 MG TABLETS PO SCH (22:31)
[2020-06-04] MEDS: INSULIN (LEVEMIR) 100 UNITS/ML UNITS SQ SCH (22:35)
[2020-06-05] MEDS: chlordiazePOXIDE HCL 10 MG CAPSULE PO SCH ×2 (05:37→17:24)
[2020-06-05] MEDS: hydrOXYzine PAMOATE 25 MG CAPSULE (FP) PO SCH ×4 (05:37→22:04)
[2020-06-05] MEDS: metFORMIN HCL 500 MG TABLET (FP) PO SCH ×2 (06:04→17:24)
[2020-06-05] MEDS ORDERED: INSULIN SLIDING SCALE (NOVOLOG) 1 VIAL SQ ONE (06:17)
[2020-06-05] MEDS: INSULIN SLIDING SCALE (NOVOLOG) 1 VIAL SQ SCH ×4 (06:17→22:07)
[2020-06-05] MEDS: NICOTINE 21 MG/24 HOURS TOPICAL PATCH TD SCH (09:26)
[2020-06-05] MEDS: PRENATAL VITAMINS W/ FOLIC ACID TABLET (FP) PO SCH (09:26)
[2020-06-05] MEDS: METHOCARBAMOL 500 MG TABLET PO SCH ×4 (09:26→22:04)
[2020-06-05] MEDS: FAMOTIDINE 20 MG TABLET PO SCH ×2 (09:27→22:03)
[2020-06-05] MEDS: ASPIRIN 81 MG CHEWABLE TABLETS PO SCH (09:27)
[2020-06-05] MEDS: HYDROCHLOROTHIAZIDE 25 MG TABLET (FP) PO SCH (09:27)
[2020-06-05] MEDS: METOPROLOL TARTRATE 25 MG TABLET (FP) PO SCH ×2 (09:27→22:03)
[2020-06-05] MEDS ORDERED: METHADONE HCL 10 MG TABLET (FOR DETOX USE ONLY) PO ONE (10:00)
--- NOTE | 2020-06-05 11:07 | PN ---
S CIWA - CIWA Score Nausea/Vomitin-No Nausea/No Vomiting Muscle Tremors: 1-None Visible, but [place] Anxiety: 2 Agitation: 0-Normal Activity Paroxysmal Sweats: No Perspiration Orientation: 0-Oriented Tacttile Disturbances: 0-None Auditory Disturbances: 0-None Visual Disturbances: 0-None Headache: 0-None Present CIWA-Ar Total Score: 3 S COWS - Scale Resting Pulse: 0= [place] 80 or Below Sweatin= No chills or Flushing Restless Observation: 0= Sits Still Pupil Size: 0= Normal to Room Light Bone or Joint Aches: 0= None Runny Nose/ Eye Tearin= None GI Upset > 30mins: 0= None Tremor Observation of Outstretched Hands: 1= Tremor [place], Not Seen Yawning Observation: 0= None Anxiety or Irritability: 2=Irritable/Anxious Goose Flesh Skin: 0=Smooth Skin COWS Score: 3 S Progress Note (SOAP) Subjective: 69 years old male admitted on 06/01/20 for alcohol and opiate withdrawal sx man agement treating with librium and methadone detox regiment feeling weak requests to stay longer to recuperate discussing the possibility of substance abuse rehab center for coping and 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 coordinator for [facility] due to insurance restriction no [facility] case discussed with the counselor for aftercare referral Objective: 06/05/20 11:07 Vital Signs - 24 hr 06/04/20 06/04/20 06/04/20 13:00 16:34 20:41 Temperature 97.3 F L 97.5 F L 97.8 F Pulse Rate 86 75 92 H Respiratory 18 16 18 Rate Blood Pressure 118/68 117/69 132/66 O2 Sat by Pulse 97 98 99 Oximetry (%) 06/05/20 06/05/20 06:15 08:40 Temperature 97.1 F L 97.5 F L Pulse Rate 77 80 Respiratory 18 18 Rate Blood Pressure 149/87 116/61 O2 Sat by Pulse 98 Oximetry (%) Laboratory Tests 06/01/20 06/01/20 06/02/20 21:48 23:40 05:47 WBC RBC Hgb Hct MCV MCH MCHC RDW Plt Count MPV Sodium Potassium Chloride Carbon Dioxide Anion Gap BUN Creatinine Est GFR (CKD-EPI)AfAm Est GFR (CKD-EPI)NonAf POC Glucometer 195 106 Random Glucose Calcium Total Bilirubin AST ALT Alkaline Phosphatase Total Protein Albumin Syphilis Serology COVID-19 ([facility]) Not detected 06/02/20 06/02/20 06/02/20 07:25 07:25 07:25 WBC 4.6 RBC 4.35 Hgb 11.7 Hct 35.8 MCV 82.3 MCH 26.8 MCHC 32.6 RDW 14.1 Plt Count 171 D MPV 8.3 Sodium 142 Potassium 4.4 Chloride 109 H Carbon Dioxide 26 Anion Gap 7 L BUN 16.2 Creatinine 0.8 Est GFR (CKD-EPI)AfAm 107.13 Est GFR (CKD-EPI)NonAf 92.44 POC Glucometer Random Glucose 152 H Calcium 9.0 Total Bilirubin 0.4 AST 46 H ALT 59 Alkaline Phosphatase 46 Total Protein 6.5 Albumin 3.4 Syphilis Serology Non-reactive COVID-19 ([facility]) 06/02/20 06/02/20 06/02/20 11:36 16:25 20:20 WBC RBC Hgb Hct MCV MCH MCHC RDW Plt Count MPV Sodium Potassium Chloride Carbon Dioxide Anion Gap BUN Creatinine Est GFR (CKD-EPI)AfAm Est GFR (CKD-EPI)NonAf POC Glucometer 117 140 123 Random Glucose Calcium Total Bilirubin AST ALT Alkaline Phosphatase Total Protein Albumin Syphilis Serology COVID-19 ([facility]) 06/03/20 06/03/20 06/03/20 06:24 16:45 20:59 WBC RBC Hgb Hct MCV MCH MCHC RDW Plt Count MPV Sodium Potassium Chloride Carbon Dioxide Anion Gap BUN Creatinine Est GFR (CKD-EPI)AfAm Est GFR (CKD-EPI)NonAf POC Glucometer 128 238 221 Random Glucose Calcium Total Bilirubin AST ALT Alkaline Phosphatase Total Protein Albumin Syphilis Serology COVID-19 ([facility]) 06/04/20 06/04/20 06/04/20 05:47 10:58 16:32 WBC RBC Hgb Hct MCV MCH MCHC RDW Plt Count MPV Sodium Potassium Chloride Carbon Dioxide Anion Gap BUN Creatinine Est GFR (CKD-EPI)AfAm Est GFR (CKD-EPI)NonAf POC Glucometer 211 214 275 Random Glucose Calcium Total Bilirubin AST ALT Alkaline Phosphatase Total Protein Albumin Syphilis Serology COVID-19 ([facility]) 06/04/20 06/05/20 20:45 05:39 WBC RBC Hgb Hct MCV MCH MCHC RDW Plt Count MPV Sodium Potassium Chloride Carbon Dioxide Anion Gap BUN Creatinine Est GFR (CKD-EPI)AfAm Est GFR (CKD-EPI)NonAf POC Glucometer 276 208 Random Glucose Calcium Total Bilirubin AST ALT Alkaline Phosphatase Total Protein Albumin Syphilis Serology COVID-19 ([facility]) lab noted Assessment: 06/05/20 11:09 alcohol and opiate withdrawal Plan: librium and methadone regiments
[2020-06-05 21:41] VITALS: TEMP 97.8
[2020-06-05] MEDS: THIAMINE HCL 100 MG TABLET (FP) PO SCH (22:04)
[2020-06-05] MEDS: MELATONIN 5 MG TABLETS PO SCH (22:04)
[2020-06-05] MEDS: ATORVASTATIN CA 40 MG TABLET (FP) PO SCH (22:04)
[2020-06-05] MEDS: INSULIN (LEVEMIR) 100 UNITS/ML UNITS SQ SCH (22:08)
[2020-06-06] MEDS ORDERED: chlordiazePOXIDE HCL 10 MG CAPSULE PO ONE (05:00)
[2020-06-06] MEDS: hydrOXYzine PAMOATE 25 MG CAPSULE (FP) PO SCH (05:41)
[2020-06-06] MEDS ORDERED: METHADONE HCL 5 MG TABLET (FOR DETOX USE ONLY) PO ONE (06:00)
[2020-06-06] MEDS: metFORMIN HCL 500 MG TABLET (FP) PO SCH (06:11)
[2020-06-06 06:14] VITALS: BP 131/66; PULSE 64
[2020-06-06] MEDS: INSULIN SLIDING SCALE (NOVOLOG) 1 VIAL SQ SCH (07:25)
[2020-06-06] MEDS ORDERED: INSULIN SLIDING SCALE (NOVOLOG) 1 VIAL SQ ONE (07:28)
--- NOTE | 2020-06-06 11:14 | DS ---
[facility] Detox Discharge Summary Admission Date: 06/01/20 Discharge Date: 06/06/20 - History Present History: Alcohol Dependence, Opioid Dependence Additional Comments: 69 years old male admitted on 06/01/20 for alcohol and opiate withdrawal sx management treated with librium and methadone detox regiments mr alvarenga has completed the librium and methadone regiments and is tolerated well alert oriented x 3 speech clearly coherently ambulating steady gaits respiratory clear lung sounds bilaterally on auscultation abdomen soft flat no rebound tenderness normal bowel sounds extremities full range of motion Pertinent Past History: time for discharge 35 minutes - Physical Exam Results Vital Signs: Vital Signs Temperature 97.8 F 06/06/20 06:13 Pulse Rate 64 06/06/20 06:13 Respiratory Rate 18 06/06/20 06:13 Blood Pressure 131/66 06/06/20 06:13 O2 Sat by Pulse Oximetry (%) 99 06/06/20 06:13 Pertinent Admission Physical Exam Findings: alcohol and opiate withdrawal Laboratory Tests 06/01/20 06/01/20 06/02/20 21:48 23:40 05:47 WBC RBC Hgb Hct MCV MCH MCHC RDW Plt Count MPV Sodium Potassium Chloride Carbon Dioxide Anion Gap BUN Creatinine Est GFR (CKD-EPI)AfAm Est GFR (CKD-EPI)NonAf POC Glucometer 195 106 Random Glucose Calcium Total Bilirubin AST ALT Alkaline Phosphatase Total Protein Albumin Syphilis Serology COVID-19 ([facility]) Not detected 06/02/20 06/02/20 06/02/20 07:25 07:25 07:25 WBC 4.6 RBC 4.35 Hgb 11.7 Hct 35.8 MCV 82.3 MCH 26.8 MCHC 32.6 RDW 14.1 Plt Count 171 D MPV 8.3 Sodium 142 Potassium 4.4 Chloride 109 H Carbon Dioxide 26 Anion Gap 7 L BUN 16.2 Creatinine 0.8 Est GFR (CKD-EPI)AfAm 107.13 Est GFR (CKD-EPI)NonAf 92.44 POC Glucometer Random Glucose 152 H Calcium 9.0 Total Bilirubin 0.4 AST 46 H ALT 59 Alkaline Phosphatase 46 Total Protein 6.5 Albumin 3.4 Syphilis Serology Non-reactive COVID-19 ([facility]) 06/02/20 06/02/20 06/02/20 11:36 16:25 20:20 WBC RBC Hgb Hct MCV MCH MCHC RDW Plt Count MPV Sodium Potassium Chloride Carbon Dioxide Anion Gap BUN Creatinine Est GFR (CKD-EPI)AfAm Est GFR (CKD-EPI)NonAf POC Glucometer 117 140 123 Random Glucose Calcium Total Bilirubin AST ALT Alkaline Phosphatase Total Protein Albumin Syphilis Serology COVID-19 ([facility]) 06/03/20 06/03/20 06/03/20 06:24 11:36 16:45 WBC RBC Hgb Hct MCV MCH MCHC RDW Plt Count MPV Sodium Potassium Chloride Carbon Dioxide Anion Gap BUN Creatinine Est GFR (CKD-EPI)AfAm Est GFR (CKD-EPI)NonAf POC Glucometer 128 200 238 Random Glucose Calcium Total Bilirubin AST ALT Alkaline Phosphatase Total Protein Albumin Syphilis Serology COVID-19 ([facility]) 06/03/20 06/04/20 06/04/20 20:59 05:47 10:58 WBC RBC Hgb Hct MCV MCH MCHC RDW Plt Count MPV Sodium Potassium Chloride Carbon Dioxide Anion Gap BUN Creatinine Est GFR (CKD-EPI)AfAm Est GFR (CKD-EPI)NonAf POC Glucometer 221 211 214 Random Glucose Calcium Total Bilirubin AST ALT Alkaline Phosphatase Total Protein Albumin Syphilis Serology COVID-19 ([facility]) 06/04/20 06/04/20 06/05/20 16:32 20:45 05:39 WBC RBC Hgb Hct MCV MCH MCHC RDW Plt Count MPV Sodium Potassium Chloride Carbon Dioxide Anion Gap BUN Creatinine Est GFR (CKD-EPI)AfAm Est GFR (CKD-EPI)NonAf POC Glucometer 275 276 208 Random Glucose Calcium Total Bilirubin AST ALT Alkaline Phosphatase Total Protein Albumin Syphilis Serology COVID-19 ([facility]) 06/05/20 06/05/20 06/05/20 11:28 16:35 21:15 WBC RBC Hgb Hct MCV MCH MCHC RDW Plt Count MPV Sodium Potassium Chloride Carbon Dioxide Anion Gap BUN Creatinine Est GFR (CKD-EPI)AfAm Est GFR (CKD-EPI)NonAf POC Glucometer 248 260 312 Random Glucose Calcium Total Bilirubin AST ALT Alkaline Phosphatase Total Protein Albumin Syphilis Serology COVID-19 ([facility]) 06/06/20 05:43 WBC RBC Hgb Hct MCV MCH MCHC RDW Plt Count MPV Sodium Potassium Chloride Carbon Dioxide Anion Gap BUN Creatinine Est GFR (CKD-EPI)AfAm Est GFR (CKD-EPI)NonAf POC Glucometer 168 Random Glucose Calcium Total Bilirubin AST ALT Alkaline Phosphatase Total Protein Albumin Syphilis Serology COVID-19 ([facility]) long history of insulin dependent diabetes mr alvarenga is trying to care for his diabetes and addiction - Treatment Hospital Course: Detox Protocol Followed, Detoxed Safely, Responded well, Discharged Condition Good, Rehab Referral Accepted Patient has Accepted a Rehab Referral to: [facility] or [facility] - Medication Discharge Medications: Ambulatory Orders Aspirin [ASA -] 81 mg PO DAILY 06/01/20 Atorvastatin Ca [Lipitor] 40 mg PO HS 06/01/20 Empagliflozin [Jardiance] 25 mg PO DAILY 06/01/20 Hydrochlorothiazide [Hctz -] 25 mg PO DAILY 06/01/20 Insulin (LOG) Aspart [NovoLOG -] 0 units SQ BID 06/01/20 Insulin Glargine,Hum.rec.anlog [Lantus] 25 unit SQ DAILY 06/01/20 Metformin HCl [Glucophage] 1,000 mg PO BID 06/01/20 Methocarbamol [Robaxin -] 750 mg PO QID 06/01/20 Metoprolol Tartrate [Lopressor -] 25 mg PO BID 06/01/20 - Diagnosis (1) Substance induced mood disorder Status: Suspected (2) Alcohol dependence with uncomplicated withdrawal Status: Acute (3) Opioid dependence with withdrawal Status: Acute (4) HTN (hypertension) Status: Chronic Qualifiers: Hypertension type: essential hypertension Qualified Code(s): I10 - Essential (primary) hypertension (5) HLD (hyperlipidemia) Status: Chronic Qualifiers: Hyperlipidemia type: pure hypertriglyceridemia Qualified Code(s): E78.1 - Pure hyperglyceridemia (6) Diabetes Status: Chronic Qualifiers: Diabetes mellitus type: type 2 Diabetes mellitus mcfp insulin use: with mcfp use Diabetes mellitus complication detail: without coma (7) History of hepatitis C Status: Chronic (8) History of positive PPD Status: Resolved (9) Nicotine dependence Status: Acute Qualifiers: Nicotine product type: cigarettes Substance use status: in withdrawal Qualified Code(s): F17.213 - Nicotine dependence, cigarettes, with withdrawal (10) DM2 (diabetes mellitus, type 2) Status: Chronic Qualifiers: 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 Diabetes mellitus complication status: without complication Qualified Code(s): E11.9 - Type 2 diabetes mellitus without complications; Z79.4 - nursing home (current) use of insulin (11) Opioid use disorder, moderate, in early remission Status: Acute - AMA Did Patient Leave Against Medical Advice: No CIWA Score - CIWA Score Nausea/Vomitin-No Nausea/No Vomiting Muscle Tremors: 1-None Visible, but [place] Anxiety: 1-Mildly Anxious Agitation: 0-Normal Activity Paroxysmal Sweats: No Perspiration Orientation: 0-Oriented Tacttile Disturbances: 0-None Auditory Disturbances: 0-None Visual Disturbances: 0-None Headache: 0-None Present CIWA-Ar Total Score: 2 COWS (PN) - Opiate Withdrawal Resting Pulse: 0= [place] 80 or Below Sweatin= No chills or Flushing Restless Observation: 0= Sits Still Pupil Size: 0= Normal to Room Light Bone or Joint Aches: 0= None Runny Nose/ Eye Tearin= None GI Upset > 30mins: 0= None Tremor Observation of Outstretched Hands: 1= Tremor [place], Not Seen Yawning Observation: 0= None Anxiety or Irritability: 1=Feels Anxious/Irritable Goose Flesh Skin: 0=Smooth Skin COWS Score: 2
== END 2020-06-06 09:01 | disposition home or self-care (01) | DRG 897 ==
LOC: YASAS 14:32 → Y3N 19:17
PROVIDERS: ADMIT Allergy & Immunology; ATTEND Allergy & Immunology
PROC: HZ2ZZZZ Detoxification Services for Substance Abuse Treatment (ICD-10-PCS; principal; 2020-06-01)
DX: F10.230 Alcohol dependence with withdrawal, uncomplicated (principal); F11.23 Opioid dependence with withdrawal; F17.213 Nicotine dependence, cigarettes, with withdrawal; F19.24 Other psychoactive substance dependence with psychoactive substance-induced mood disorder; G47.00 Insomnia, unspecified; I10 Essential (primary) hypertension; E78.1 Pure hyperglyceridemia; E11.9 Type 2 diabetes mellitus without complications; R76.11 Nonspecific reaction to tuberculin skin test without active tuberculosis; Z79.4 Long term (current) use of insulin; Z86.19 Personal history of other infectious and parasitic diseases
CPT/HCPCS: 36415; 80053; 82962; 85027; 86780; Q0162; U0003

== ENCOUNTER 2020-09-23 11:08 | Inpatient (IN) | payer OTHER ==
[2020-09-23] MEDS ORDERED: chlordiazePOXIDE HCL 25 MG CAPSULE PO PRN (12:34)
[2020-09-23] MEDS ORDERED: MENTHOL/PHENOL 1 EACH UD MM PRN (12:34)
[2020-09-23] MEDS ORDERED: NICOTINE POLACRILEX 2 MG GUM BUC PRN (12:34)
[2020-09-23] MEDS ORDERED: ONDANSETRON *ODT* 4 MG TABLET SL PRN (12:34)
[2020-09-23] MEDS ORDERED: BISMUTH SUBSALICYLATE 524 MG/30 ML UD PO PRN (12:34)
[2020-09-23] MEDS ORDERED: MAGNESIUM HYDROX 2400MG/30ML ORAL SUSPENSION 30 ML CUP PO PRN (12:34)
[2020-09-23] MEDS ORDERED: IBUPROFEN 400 MG TABLET (FP) PO PRN (12:34)
[2020-09-23] MEDS ORDERED: METHOCARBAMOL 500 MG TABLET PO PRN (12:34)
[2020-09-23] MEDS ORDERED: MAG HYDROX/AL HYDROX/SIMETH 30 ML UNIT-DOSE CUP PO PRN (12:34)
[2020-09-23] MEDS ORDERED: ACETAMINOPHEN 325 MG TABLET (FP) PO PRN ×2 (12:34)
[2020-09-23] MEDS ORDERED: MAGNESIUM CITRATE 300 ML BOTTLE PO PRN (12:34)
[2020-09-23] MEDS ORDERED: METHADONE HCL 40 MG DISPERSABLE TABLET PO SCH (13:00)
[2020-09-23 13:23] VITALS: BMI 23.8
[2020-09-23] MEDS: METOPROLOL TARTRATE 25 MG TABLET (FP) PO SCH ×2 (14:02→22:18)
[2020-09-23] MEDS: ASPIRIN 81 MG CHEWABLE TABLETS PO SCH (14:02)
[2020-09-23] MEDS: hydrOXYzine PAMOATE 25 MG CAPSULE (FP) PO SCH ×3 (14:02→22:16)
[2020-09-23] MEDS ORDERED: METHADONE HCL 10 MG TABLET ONE (14:36)
[2020-09-23] MEDS ORDERED: METHADONE HCL 40 MG DISPERSABLE TABLET ONE (14:37)
[2020-09-23] MEDS: LOSARTAN 50MG/HCTZ 12.5MG 1 TAB PO SCH (14:38)
[2020-09-23] MEDS ORDERED: METHADONE 40 MG, METHADONE 10 MG PO ONE (14:45)
[2020-09-23] MEDS: chlordiazePOXIDE HCL 25 MG CAPSULE PO SCH ×2 (17:08→22:16)
[2020-09-23] MEDS: metFORMIN HCL 500 MG TABLET (FP) PO SCH (17:08)
[2020-09-23 17:26] LABS: POTASSIUM 4.1 mmol/L (3.5-5.1)
[2020-09-23 17:28] LABS: ALBUMIN 3.1 g/dl (3.4-5.0); CALCIUM 8.8 mg/dL (8.5-10.1)
[2020-09-23 17:30] LABS: HEMATOCRIT 35.9 % (35.4-49); HEMOGLOBIN 11.7 GM/dL (11.7-16.9); MCH 26.6 pg (25.7-33.7); MCHC 32.5 g/dl (32.0-35.9); MEAN CELL VOLUME 81.9 fl (80-96); MEAN PLT VOLUME 8.9 fl (7.5-11.1); PLATELET COUNT 109 K/MM3 (134-434); RBC 4.38 M/mm3 (4.00-5.60); WHITE BLOOD COUNT 6.1 K/mm3 (4.0-10.0)
[2020-09-23 17:32] LABS: CREATININE 0.7 mg/dL (0.55-1.3)
[2020-09-23 17:33] LABS: BILIRUBIN,TOTAL 0.5 mg/dL (0.2-1); TOT PROT 6.6 g/dl (6.4-8.2)
[2020-09-23] MEDS: THIAMINE HCL 100 MG TABLET (FP) PO SCH (22:16)
[2020-09-23] MEDS: ATORVASTATIN CA 40 MG TABLET (FP) PO SCH (22:16)
[2020-09-23] MEDS: MELATONIN 5 MG TABLETS PO SCH (22:16)
[2020-09-23] MEDS: INSULIN (LEVEMIR) 100 UNITS/ML UNITS SQ SCH (22:18)
[2020-09-23] MEDS ORDERED: INSULIN (LEVEMIR) 100 UNITS/ML UNITS SQ ONE (22:49)
[2020-09-24] MEDS ORDERED: METHADONE HCL 40 MG DISPERSABLE TABLET ONE (05:08)
[2020-09-24] MEDS ORDERED: METHADONE HCL 10 MG TABLET ONE (05:08)
[2020-09-24] MEDS: chlordiazePOXIDE HCL 25 MG CAPSULE PO SCH ×4 (05:32→22:37)
[2020-09-24] MEDS: hydrOXYzine PAMOATE 25 MG CAPSULE (FP) PO SCH ×5 (05:33→22:37)
[2020-09-24] MEDS: METHADONE 40 MG, METHADONE 10 MG PO SCH (05:33)
[2020-09-24] MEDS ORDERED: METHADONE 40 MG, METHADONE 10 MG PO SCH (06:00)
[2020-09-24] MEDS: metFORMIN HCL 500 MG TABLET (FP) PO SCH ×2 (07:47→17:47)
[2020-09-24] MEDS ORDERED: NICOTINE 7 MG/24 HOURS TOPICAL PATCH TD SCH (10:00)
[2020-09-24] MEDS: LIRAGLUTIDE 0.6 MG/0.1 ML PEN.INJCTR SQ SCH (10:21)
[2020-09-24] MEDS: ASPIRIN 81 MG CHEWABLE TABLETS PO SCH (10:22)
[2020-09-24] MEDS: METOPROLOL TARTRATE 25 MG TABLET (FP) PO SCH ×2 (10:23→22:36)
[2020-09-24] MEDS: LOSARTAN 50MG/HCTZ 12.5MG 1 TAB PO SCH (10:23)
[2020-09-24] MEDS: PRENATAL VITAMINS W/ FOLIC ACID TABLET (FP) PO SCH (10:24)
[2020-09-24] MEDS: NICOTINE 21 MG/24 HOURS TOPICAL PATCH TD SCH (12:32)
[2020-09-24] MEDS ORDERED: MASKS NR ONE (21:47)
[2020-09-24] MEDS: INSULIN (LEVEMIR) 100 UNITS/ML UNITS SQ SCH (22:36)
[2020-09-24] MEDS: MELATONIN 5 MG TABLETS PO SCH (22:36)
[2020-09-24] MEDS: THIAMINE HCL 100 MG TABLET (FP) PO SCH (22:36)
[2020-09-24] MEDS: ATORVASTATIN CA 40 MG TABLET (FP) PO SCH (22:36)
[2020-09-25] MEDS ORDERED: METHADONE HCL 10 MG TABLET ONE (04:40)
[2020-09-25] MEDS ORDERED: METHADONE HCL 40 MG DISPERSABLE TABLET ONE (04:40)
[2020-09-25] MEDS: chlordiazePOXIDE HCL 25 MG CAPSULE PO SCH ×4 (07:04→22:21)
[2020-09-25] MEDS: METHADONE 40 MG, METHADONE 10 MG PO SCH (07:04)
[2020-09-25] MEDS: metFORMIN HCL 500 MG TABLET (FP) PO SCH ×2 (07:44→17:06)
[2020-09-25] MEDS: hydrOXYzine PAMOATE 25 MG CAPSULE (FP) PO SCH ×2 (07:44→11:39)
[2020-09-25] MEDS: LIRAGLUTIDE 0.6 MG/0.1 ML PEN.INJCTR SQ SCH (07:45)
[2020-09-25] MEDS ORDERED: hydrOXYzine PAMOATE 25 MG CAPSULE (FP) PO PRN (10:50)
[2020-09-25] MEDS: ASPIRIN 81 MG CHEWABLE TABLETS PO SCH (11:00)
[2020-09-25] MEDS: METOPROLOL TARTRATE 25 MG TABLET (FP) PO SCH ×2 (11:00→22:21)
[2020-09-25] MEDS: NICOTINE 21 MG/24 HOURS TOPICAL PATCH TD SCH (11:01)
[2020-09-25] MEDS: PRENATAL VITAMINS W/ FOLIC ACID TABLET (FP) PO SCH (11:01)
[2020-09-25] MEDS: LOSARTAN 50MG/HCTZ 12.5MG 1 TAB PO SCH (11:47)
[2020-09-25] MEDS ORDERED: FLU VACCINE (FLULAVAL) PF 60 MCG/0.5 ML SYRINGE 2020-2021 IM ONE (12:00)
[2020-09-25] MEDS: INSULIN (LEVEMIR) 100 UNITS/ML UNITS SQ SCH (21:42)
[2020-09-25] MEDS: THIAMINE HCL 100 MG TABLET (FP) PO SCH (22:20)
[2020-09-25] MEDS: ATORVASTATIN CA 40 MG TABLET (FP) PO SCH (22:20)
[2020-09-25] MEDS: MELATONIN 5 MG TABLETS PO SCH (22:21)
[2020-09-26] MEDS ORDERED: chlordiazePOXIDE HCL 10 MG CAPSULE PO PRN
[2020-09-26] MEDS ORDERED: METHADONE HCL 40 MG DISPERSABLE TABLET ONE (04:37)
[2020-09-26] MEDS ORDERED: METHADONE HCL 10 MG TABLET ONE (04:37)
[2020-09-26] MEDS: METHADONE 40 MG, METHADONE 10 MG PO SCH (05:58)
[2020-09-26] MEDS: chlordiazePOXIDE HCL 10 MG CAPSULE PO SCH ×4 (05:58→22:54)
[2020-09-26] MEDS: metFORMIN HCL 500 MG TABLET (FP) PO SCH ×2 (06:02→17:28)
[2020-09-26] MEDS: LIRAGLUTIDE 0.6 MG/0.1 ML PEN.INJCTR SQ SCH (07:25)
[2020-09-26] MEDS: ASPIRIN 81 MG CHEWABLE TABLETS PO SCH (10:40)
[2020-09-26] MEDS: NICOTINE 21 MG/24 HOURS TOPICAL PATCH TD SCH (10:41)
[2020-09-26] MEDS: PRENATAL VITAMINS W/ FOLIC ACID TABLET (FP) PO SCH (10:41)
[2020-09-26 11:07] LABS: SGOT/AST 44 U/L (15-37); SGPT/ALT 56 U/L (13-61)
[2020-09-26] MEDS: LOSARTAN 50MG/HCTZ 12.5MG 1 TAB PO SCH (15:02)
[2020-09-26] MEDS: METOPROLOL TARTRATE 25 MG TABLET (FP) PO SCH ×2 (15:02→22:54)
[2020-09-26] MEDS: INSULIN (LEVEMIR) 100 UNITS/ML UNITS SQ SCH (21:47)
[2020-09-26] MEDS: MELATONIN 5 MG TABLETS PO SCH (22:54)
[2020-09-26] MEDS: THIAMINE HCL 100 MG TABLET (FP) PO SCH (22:54)
[2020-09-26] MEDS: ATORVASTATIN CA 40 MG TABLET (FP) PO SCH (22:54)
[2020-09-27] MEDS ORDERED: METHADONE HCL 40 MG DISPERSABLE TABLET ONE (04:57)
[2020-09-27] MEDS ORDERED: METHADONE HCL 10 MG TABLET ONE (04:57)
[2020-09-27] MEDS: metFORMIN HCL 500 MG TABLET (FP) PO SCH ×2 (07:31→17:44)
[2020-09-27] MEDS: chlordiazePOXIDE HCL 10 MG CAPSULE PO SCH ×2 (07:31→17:44)
[2020-09-27] MEDS: METHADONE 40 MG, METHADONE 10 MG PO SCH (07:32)
[2020-09-27] MEDS: LIRAGLUTIDE 0.6 MG/0.1 ML PEN.INJCTR SQ SCH (07:41)
[2020-09-27] MEDS: ASPIRIN 81 MG CHEWABLE TABLETS PO SCH (10:31)
[2020-09-27] MEDS: NICOTINE 21 MG/24 HOURS TOPICAL PATCH TD SCH (10:31)
[2020-09-27] MEDS: PRENATAL VITAMINS W/ FOLIC ACID TABLET (FP) PO SCH (10:31)
[2020-09-27] MEDS: METOPROLOL TARTRATE 25 MG TABLET (FP) PO SCH ×2 (10:32→22:05)
[2020-09-27] MEDS: LOSARTAN 50MG/HCTZ 12.5MG 1 TAB PO SCH (10:32)
[2020-09-27] MEDS: MELATONIN 5 MG TABLETS PO SCH (22:05)
[2020-09-27] MEDS: THIAMINE HCL 100 MG TABLET (FP) PO SCH (22:05)
[2020-09-27] MEDS: ATORVASTATIN CA 40 MG TABLET (FP) PO SCH (22:05)
[2020-09-27] MEDS: INSULIN (LEVEMIR) 100 UNITS/ML UNITS SQ SCH (22:06)
[2020-09-28] MEDS ORDERED: METHADONE HCL 10 MG TABLET ONE (04:22)
[2020-09-28] MEDS ORDERED: METHADONE HCL 40 MG DISPERSABLE TABLET ONE (04:22)
[2020-09-28] MEDS ORDERED: chlordiazePOXIDE HCL 10 MG CAPSULE PO ONE (05:00)
[2020-09-28] MEDS: METHADONE 40 MG, METHADONE 10 MG PO SCH (05:39)
[2020-09-28 06:17] VITALS: BP 131/73; PULSE 86; TEMP 97.7
[2020-09-28] MEDS: metFORMIN HCL 500 MG TABLET (FP) PO SCH (06:43)
== END 2020-09-28 08:45 | disposition home or self-care (01) | DRG 897 ==
LOC: YASAS 11:08 → Y6N 13:09
PROVIDERS: ADMIT Allergy & Immunology; ATTEND Allergy & Immunology
PROC: HZ2ZZZZ Detoxification Services for Substance Abuse Treatment (ICD-10-PCS; principal; 2020-09-23)
DX: F10.230 Alcohol dependence with withdrawal, uncomplicated (principal); F11.23 Opioid dependence with withdrawal; F17.210 Nicotine dependence, cigarettes, uncomplicated; E78.5 Hyperlipidemia, unspecified; I10 Essential (primary) hypertension; J44.9 Chronic obstructive pulmonary disease, unspecified; E11.9 Type 2 diabetes mellitus without complications; Z79.4 Long term (current) use of insulin; B18.2 Chronic viral hepatitis C; R76.11 Nonspecific reaction to tuberculin skin test without active tuberculosis; R74.01 Elevation of levels of liver transaminase levels
CPT/HCPCS: 36415; 80053; 82962; 84450; 84460; 85027; 86780; C9803; G0008; Q2036; U0003

== ENCOUNTER 2022-05-17 10:43 | Inpatient (IN) | payer OTHER ==
[2022-05-17 11:57] VITALS: BMI 22.8
[2022-05-17] MEDS ORDERED: MAG HYDROX/AL HYDROX/SIMETH 30 ML UNIT-DOSE CUP PO PRN (13:51)
[2022-05-17] MEDS ORDERED: NALOXONE HCL (KLOXXADO) 8 MG SPRAY NS PRN (13:51)
[2022-05-17] MEDS ORDERED: IBUPROFEN 600 MG TABLET (FP) PO PRN (13:51)
[2022-05-17] MEDS ORDERED: DICYCLOMINE HCL 10 MG CAPSULE PO PRN (13:51)
[2022-05-17] MEDS ORDERED: BISMUTH SUBSALICYLATE 524 MG/30 ML PO PRN (13:51)
[2022-05-17] MEDS ORDERED: MAGNESIUM CITRATE 300 ML BOTTLE PO PRN (13:51)
[2022-05-17] MEDS ORDERED: ACETAMINOPHEN 325 MG TABLET (FP) PO PRN ×2 (13:51)
[2022-05-17] MEDS ORDERED: cloNIDine HCL 0.1 MG TABLET PO PRN (13:51)
[2022-05-17] MEDS ORDERED: methaDONE HCL 10 MG TABLET (FOR DETOX USE ONLY) PO ONE (13:51)
[2022-05-17] MEDS ORDERED: METHOCARBAMOL 500 MG TABLET PO PRN (13:51)
[2022-05-17] MEDS ORDERED: NICOTINE 10 MG CARTRIDGE (INHALER) IH PRN (13:51)
[2022-05-17] MEDS ORDERED: MAGNESIUM HYDROX 2400MG/30ML ORAL SUSPENSION 30 ML CUP PO PRN (13:51)
[2022-05-17] MEDS ORDERED: LOPERAMIDE HCL 2 MG CAPSULE PO PRN (13:51)
[2022-05-17] MEDS ORDERED: BENZOCAINE/MENTHOL (CHLORASEPTIC ) LOZENGE MM PRN (13:51)
[2022-05-17] MEDS ORDERED: NICOTINE POLACRILEX 2 MG GUM BUC PRN (13:51)
[2022-05-17] MEDS ORDERED: IBUPROFEN 400 MG TABLET (FP) PO PRN (13:51)
[2022-05-17] MEDS ORDERED: ONDANSETRON *ODT* 4 MG TABLET SL PRN (13:51)
[2022-05-17] MEDS ORDERED: INSULIN (NOVOLOG) ASPART 100 UNITS/ML 10ML VIAL SQ ONE (15:06)
[2022-05-17] MEDS ORDERED: methaDONE HCL 10 MG TABLET (FOR DETOX USE ONLY) ONE (15:13)
[2022-05-17] MEDS ORDERED: hydrOXYzine PAMOATE 25 MG CAPSULE (FP) PO ONE (15:15)
[2022-05-17] MEDS: hydrOXYzine PAMOATE 25 MG CAPSULE (FP) PO SCH ×3 (15:16→22:47)
[2022-05-17] MEDS: HYDROCHLOROTHIAZIDE 25 MG TABLET (FP) PO SCH (15:33)
[2022-05-17] MEDS: ASPIRIN 81 MG CHEWABLE TABLETS PO SCH (15:33)
[2022-05-17] MEDS: metFORMIN HCL 500 MG TABLET (FP) PO SCH (17:48)
[2022-05-17] MEDS: ATORVASTATIN CA 40 MG TABLET (FP) PO SCH (22:47)
[2022-05-17] MEDS: METOPROLOL TARTRATE 25 MG TABLET (FP) PO SCH (22:47)
[2022-05-17] MEDS: INSULIN (LEVEMIR) 100 UNITS/ML UNITS SQ SCH (22:47)
[2022-05-17] MEDS: THIAMINE HCL 100 MG TABLET (FP) PO SCH (22:47)
[2022-05-17] MEDS ORDERED: INSULIN SLIDING SCALE (NOVOLOG) 1 VIAL SQ SCH (22:59)
[2022-05-17] MEDS: INSULIN SLIDING SCALE (NOVOLOG) 1 VIAL SQ SCH (23:22)
[2022-05-17] MEDS ORDERED: INSULIN (NOVOLOG) ASPART 100 UNITS/ML 10ML VIAL ONE (23:24)
[2022-05-17] MEDS: MELATONIN 5 MG TABLETS PO SCH (23:42)
[2022-05-18] MEDS: hydrOXYzine PAMOATE 25 MG CAPSULE (FP) PO SCH ×5 (05:19→22:56)
[2022-05-18] MEDS: metFORMIN HCL 500 MG TABLET (FP) PO SCH ×2 (06:25→16:30)
[2022-05-18] MEDS ORDERED: INSULIN SLIDING SCALE (NOVOLOG) 1 VIAL SQ SCH (07:00)
[2022-05-18] MEDS ORDERED: INSULIN (NOVOLOG) ASPART 100 UNITS/ML 10ML VIAL ONE ×4 (07:38→21:57)
[2022-05-18] MEDS: INSULIN SLIDING SCALE (NOVOLOG) 1 VIAL SQ SCH ×2 (07:47→11:42)
[2022-05-18] MEDS ORDERED: methaDONE HCL 10 MG TABLET (FOR DETOX USE ONLY) ONE (08:44)
[2022-05-18] MEDS: PRENATAL VITAMINS W/ FOLIC ACID TABLET (FP) PO SCH (10:24)
[2022-05-18] MEDS: METOPROLOL TARTRATE 25 MG TABLET (FP) PO SCH ×2 (10:25→22:56)
[2022-05-18] MEDS: HYDROCHLOROTHIAZIDE 25 MG TABLET (FP) PO SCH (10:25)
[2022-05-18] MEDS: NICOTINE 21 MG/24 HOURS TOPICAL PATCH TD SCH (10:25)
[2022-05-18] MEDS: ASPIRIN 81 MG CHEWABLE TABLETS PO SCH (10:25)
[2022-05-18] MEDS: INSULIN (NOVOLOG) ASPART 100 UNITS/ML 10ML VIAL SQ SCH ×2 (16:27→22:57)
[2022-05-18] MEDS: ATORVASTATIN CA 40 MG TABLET (FP) PO SCH (22:56)
[2022-05-18] MEDS: THIAMINE HCL 100 MG TABLET (FP) PO SCH (22:56)
[2022-05-18] MEDS: MELATONIN 5 MG TABLETS PO SCH (22:57)
[2022-05-18] MEDS: INSULIN (LEVEMIR) 100 UNITS/ML UNITS SQ SCH (22:58)
[2022-05-19] MEDS: hydrOXYzine PAMOATE 25 MG CAPSULE (FP) PO SCH ×5 (05:11→22:11)
[2022-05-19] MEDS ORDERED: INSULIN (NOVOLOG) ASPART 100 UNITS/ML 10ML VIAL ONE (08:36)
[2022-05-19] MEDS: metFORMIN HCL 500 MG TABLET (FP) PO SCH ×2 (08:59→17:52)
[2022-05-19] MEDS: INSULIN (NOVOLOG) ASPART 100 UNITS/ML 10ML VIAL SQ SCH ×4 (08:59→22:13)
[2022-05-19] MEDS ORDERED: methaDONE HCL 10 MG TABLET (FOR DETOX USE ONLY) PO ONE (10:00)
[2022-05-19] MEDS: NICOTINE 21 MG/24 HOURS TOPICAL PATCH TD SCH (10:25)
[2022-05-19] MEDS: HYDROCHLOROTHIAZIDE 25 MG TABLET (FP) PO SCH (10:27)
[2022-05-19] MEDS: PRENATAL VITAMINS W/ FOLIC ACID TABLET (FP) PO SCH (10:27)
[2022-05-19] MEDS: ASPIRIN 81 MG CHEWABLE TABLETS PO SCH (10:27)
[2022-05-19] MEDS: METOPROLOL TARTRATE 25 MG TABLET (FP) PO SCH ×2 (10:27→22:11)
[2022-05-19 12:10] LABS: CHLORIDE 97 mmol/L (98-107); SODIUM 135 mmol/L (136-145)
[2022-05-19 12:16] LABS: ANION GAP 8 MMOL/L (8-16); BLOOD UREA NITROGEN 12.9 mg/dL (7-18); CALCIUM 9.9 mg/dL (8.5-10.1); CO2 31 mmol/L (21-32)
[2022-05-19 12:17] LABS: ALBUMIN 3.4 g/dl (3.4-5.0)
[2022-05-19 12:19] LABS: SGPT/ALT 27 U/L (13-61)
[2022-05-19 12:20] LABS: CREATININE 0.8 mg/dL (0.55-1.3); SGOT/AST 32 U/L (15-37)
[2022-05-19 12:21] LABS: BILIRUBIN,TOTAL 0.6 mg/dL (0.2-1); TOT PROT 7.5 g/dl (6.4-8.2)
[2022-05-19 12:22] LABS: ALK PHOS 94 U/L (45-117)
[2022-05-19 12:30] LABS: HEMATOCRIT 35.9 % (35.4-49); HEMOGLOBIN 11.7 GM/dL (11.7-16.9); MCH 24.3 pg (25.7-33.7); MCHC 32.6 g/dl (32.0-35.9); MEAN CELL VOLUME 74.4 fl (80-96); MEAN PLT VOLUME 8.9 fl (7.5-11.1); PLATELET COUNT 159 10^3/uL (134-434); RBC 4.82 M/mm3 (4.00-5.60); RDW 23.3 % (11.9-15.9); WHITE BLOOD COUNT 9.4 K/mm3 (4.0-10.0)
[2022-05-19 12:31] LABS: GLUCOSE,RANDOM 407 mg/dL (74-106)
[2022-05-19] MEDS ORDERED: INSULIN (LEVEMIR) 100 UNITS/ML UNITS SQ SCH (22:00)
[2022-05-19] MEDS: ATORVASTATIN CA 40 MG TABLET (FP) PO SCH (22:11)
[2022-05-19] MEDS: THIAMINE HCL 100 MG TABLET (FP) PO SCH (22:11)
[2022-05-19] MEDS: MELATONIN 5 MG TABLETS PO SCH (22:13)
[2022-05-20] MEDS: hydrOXYzine PAMOATE 25 MG CAPSULE (FP) PO SCH ×2 (05:14→10:20)
[2022-05-20] MEDS: metFORMIN HCL 500 MG TABLET (FP) PO SCH (07:07)
[2022-05-20] MEDS: INSULIN (NOVOLOG) ASPART 100 UNITS/ML 10ML VIAL SQ SCH ×2 (07:08→11:37)
[2022-05-20] MEDS ORDERED: methaDONE HCL 10 MG TABLET (FOR DETOX USE ONLY) ONE (09:14)
[2022-05-20 09:43] VITALS: BP 129/77; PULSE 88; TEMP 96.9
[2022-05-20] MEDS: ASPIRIN 81 MG CHEWABLE TABLETS PO SCH (10:20)
[2022-05-20] MEDS: HYDROCHLOROTHIAZIDE 25 MG TABLET (FP) PO SCH (10:20)
[2022-05-20] MEDS: PRENATAL VITAMINS W/ FOLIC ACID TABLET (FP) PO SCH (10:20)
[2022-05-20] MEDS: METOPROLOL TARTRATE 25 MG TABLET (FP) PO SCH (10:20)
[2022-05-20] MEDS: NICOTINE 21 MG/24 HOURS TOPICAL PATCH TD SCH (10:21)
[2022-05-21] MEDS ORDERED: methaDONE HCL 10 MG TABLET (FOR DETOX USE ONLY) PO ONE (10:00)
== END 2022-05-20 13:11 | disposition left against medical advice (07) | DRG 894 ==
LOC: SUATTDRO 10:43 → YASAS 10:43 → Y6N 15:13
PROVIDERS: ADMIT Allergy & Immunology; ATTEND Surgery
PROC: HZ2ZZZZ Detoxification Services for Substance Abuse Treatment (ICD-10-PCS; principal; 2022-05-17)
DX: F11.23 Opioid dependence with withdrawal (principal); F10.230 Alcohol dependence with withdrawal, uncomplicated; F17.210 Nicotine dependence, cigarettes, uncomplicated; I10 Essential (primary) hypertension; E78.5 Hyperlipidemia, unspecified; E11.9 Type 2 diabetes mellitus without complications; Z79.4 Long term (current) use of insulin; R76.11 Nonspecific reaction to tuberculin skin test without active tuberculosis; R63.4 Abnormal weight loss; Z68.22 Body mass index [BMI] 22.0-22.9, adult; Z86.19 Personal history of other infectious and parasitic diseases
CPT/HCPCS: 36415; 80053; 82962; 83036; 85027; 86780; 87811; C9803-CS; U0003; U0005